=== PATIENT | female | born 1990 | race African-American/Black ===

== ENCOUNTER 2023-10-28 16:45 | Emergency (ER) | payer OTHER, SELFPAY ==
--- NOTE | 2023-10-28 16:53 | ED.GENADULT ---
HPI - General Adult General Chief complaint: Extremity Injury, Upper Stated complaint: R ARM PAIN Time Seen by Provider: 10/28/23 18:13 Source: patient Mode of arrival: ambulatory Limitations: no limitations History of Present Illness HPI narrative: 33 yold female with no pmh presents to the ED for right shoulder painful redness, mass and pain on palpation for the past 3 days. patient denies any fever, chills, shoulder stiffness, or any recent trauma. Patient states history of abscess in that shoulder in the past. Related Data Previous Rx's Medication Instructions Recorded cephalexin 500 mg capsule 500 mg PO Q12H 7 days #14 caps 10/28/23 doxycycline hyclate 100 mg capsule 100 mg PO BID 7 days #14 caps 10/28/23 naproxen 500 mg tablet 500 mg PO BID PRN pain 7 days #14 10/28/23 tabs Allergies Allergy/AdvReac Type Severity Reaction Status Date / Time No Known Allergies Allergy Verified 10/28/23 17:14 Review of Systems Review of Systems: Right shoulder pain Yes all other systems are reviewed and are negative [facility] Social History Social History Advance Directives: No Advance Directives Information Provided: No Physical Exam ED Vital Signs: Vital Signs - 24 hr 10/28/23 17:16 Temperature 97.5 F Pulse Rate 81 Respiratory Rate 16 Blood Pressure 126/64 Pulse Oximetry 99 Oxygen Delivery Method Room Air BMI result Body Mass Index 33.9 Const General: cooperative, healthy appearing, comfortable, no acute distress, well developed, alert, awake and Physically active Orientation/consciousness: oriented to person, oriented to place, oriented to time and patient oriented x3 HENMT Head: Yes normal to inspection, Yes No palpable skull fracture present, Yes normocephalic and Yes atraumatic Throat: Yes posterior oropharynx normal, Yes tonsils normal and Yes uvula midline Eyes General: appearance normal, both eyes and all related structures Neck Neck: Yes normal visual inspection, Yes full ROM, Yes no lymphadenopathy, Yes no meningeal signs, Yes trachea midline, Yes supple, No anterior neck swelling and No tender Chest Chest palpation & inspection: normal inspection of the chest and normal palpation of entire chest wall Resp Effort & Inspection: normal respiratory effort and able to speak in complete sentences Auscultation: clear to auscultation bilaterally Cardio Jugular venous distension: no JVD Heart sounds: S1 normal heart sound present and S2 normal heart sound present GI Inspection: Yes normal to inspection Palpation (GI): Soft to palpation, not firm, nontender, no guarding and not rigid General: No CVA tenderness Back/Spine/Pelvis Back: No CVA tenderness and No back tenderness Skin General skin exam: no rashes or lesions noted, elasticity normal and turgor normal Neuro General: oriented to person, oriented to place, oriented to time, patient oriented x3, gait normal, tone normal, moves all extremities, Normal light touch and pain sensation, no meningeal signs, no focal motor deficits, CN's II-XI intact bilaterally and normal sensation to monofilament Extrem General: Yes normal to inspection and Yes full ROM Shoulder/upper arm images: 1. Positive for area of erythema, tenderness, warmth, and some fluctuance. Patient has complete range of motion of shoulder. Rest of arm negative for any swelling, redness, pain edema, or tenderness. Motor/neuro/ vascular exam of extremity intact. Not suspecting septic joint. Psych Appearance: grossly normal, well kempt and not disheveled Course Course Course Narrative: This is an RME: Additional HPI, ROS, PE not included below will be deferred to primary provider. Patient is a 33-year-old female patient Creole speaking who presents emergency department via EMS for evaluation of right upper arm pain x3 days, with fluid collection, soft fluctuant area tender to touch. Patient reports a history of similar fluid collection in this area requiring drainage Medications Administered Discontinued Medications Generic Name Dose Route Start Last Admin Trade Name Freq PRN Reason Stop Dose Admin Diphtheria/Tetanus/Acell Pertussis 0.5 ml 10/28/23 19:39 10/28/23 20:07 Diphth,Pertus(Acell),Tet Adult 0.5 Ml Syringe IM 10/28/23 19:40 0.5 ml .ONCE ONE Administration Ibuprofen 800 mg 10/28/23 20:12 10/28/23 20:18 Ibuprofen 800 Mg Tablet PO 10/28/23 20:13 800 mg ONCE ONE Administration Lidocaine HCl 5 ml 10/28/23 18:14 10/28/23 19:16 Lidocaine Hcl 1 % Mpf 5 Ml Vial INFILTRATI 10/28/23 18:15 5 ml ONCE ONE Administration Lidocaine HCl 5 ml 10/28/23 18:14 10/28/23 19:16 Lidocaine Hcl 1 % Mpf 5 Ml Vial INFILTRATI 10/28/23 18:15 5 ml ONCE ONE Administration Medical Decision Making Medical Decision Making [facility] Narrative: 33-year-old female presents to ED for right shoulder pain for redness lump present for couple of days. Bedside ultrasound shows large local abscess. Lidocaine 1% 10 mL male use for anesthesia. Wound cleaned with sterile saline Betadine iodine. Size 11 used for incision. Large amount of white cheesy smelly foul odor discharge. . Discharge was drained and forceps was used to open up more pockets. Normal saline flushed into abscess. Packing placed. not suspecting septic joint. I recommended doing a larger incision to drain more abscess, but patient states no due to pain. Differential Diagnosis Differential Diagnoses: The differential diagnosis associated with the presentation includes ( Abscess, cellulitis) Admission/Observation Consideration of admission/observation: Escalation of care including admission/observation considered Independent Historian Clinical information obtained from an independent historian. History obtained from or confirmed by: Other ( patient) External Record Review External record reviewed: Other (prior visits) Prescription Management I considered prescription management with: Pain Medication and Antibiotic Discharge Plan Discharge Clinical Impression: Abscess Patient Disposition: Home, Self-Care Instructions: Abscess Incision and Drainage (DC) Additional Instructions: return to the ED 2 days for repacking and abscess evaluation. Return to the ED immediately for any redness, profuse pus discharge, shoulder stiffness, fever, chills, chest pain, shortness of breath, red streaks down the arm, arm swelling, bluish discoloration, or any other concerning symptoms. Prescriptions: New naproxen 500 mg tablet 500 mg PO BID PRN (Reason: pain) 7 Days Qty: 14 0RF cephalexin 500 mg capsule 500 mg PO Q12H 7 Days Qty: 14 0RF doxycycline hyclate 100 mg capsule 100 mg PO BID 7 Days Qty: 14 0RF Stand Alone Forms: Work/School Release Interventions: ED Discharge Assessment Last Done: 10/28/23 20:11 Discharge Date/Time: 10/28/23 20:25 Print Language: Jordanian
[2023-10-28 17:16] VITALS: BP 126/64; BP 132/80; PULSE 105; PULSE 81; RESP 16; TEMP 36.4; O2SAT 98; O2SAT 99; BMI 33.9
[2023-10-28] MEDS: Lidocaine HCl 1 % MPF 5 ML VIAL INFILTRATI ×2 (19:16)
[2023-10-28] MEDS: Diphth,Pertus(ACell),Tet Adult 0.5 ML SYRINGE IM (20:07)
[2023-10-28 20:11] VITALS: BP 126/64; PULSE 81; RESP 16; TEMP 36.4; O2SAT 99
[2023-10-28] MEDS: Ibuprofen 800 MG TABLET PO (20:18)
== END 2023-10-28 20:25 | disposition home or self-care (01) ==
PROVIDERS: Emergency Provider Emergency Medicine Emergency Medical Services
DX: L02.413 Cutaneous abscess of right upper limb (principal); Z23 Encounter for immunization
CPT/HCPCS: 10060; 87070; 87077; 87186; 87205; 90471; 90715; 99283; 99284

== ENCOUNTER 2023-10-30 09:04 | Emergency (ER) | payer OTHER, SELFPAY ==
[2023-10-30 09:20] VITALS: BP 115/72; PULSE 88; RESP 16; TEMP 37.1; O2SAT 99; BMI 38.6
--- NOTE | 2023-10-30 09:29 | ED.WOUNDLAC ---
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 Patient was seen on October 27 for an abscess. This abscess on her right shoulder was excised and drained and packed. Patient was discharged on doxycycline and Keflex which she has been compliant with. She states that she had a fever on October 27, denies any additional fevers. She is otherwise feeling okay other than pain in her right shoulder. Denies any recent fevers, chills, chest pain, shortness of breath, abdominal pain, nausea, vomiting or diarrhea. No other complaints or concerns at this time. Onset (ago): day(s) Related Data Previous Rx's Medication Instructions Recorded cephalexin 500 mg capsule 500 mg PO Q12H 7 days #14 caps 10/28/23 doxycycline hyclate 100 mg capsule 100 mg PO BID 7 days #14 caps 10/28/23 naproxen 500 mg tablet 500 mg PO BID PRN pain 7 days #14 10/28/23 tabs Allergies Allergy/AdvReac Type Severity Reaction Status Date / Time No Known Allergies Allergy Verified 10/28/23 17:14 Review of Systems Review of Systems: Yes all other systems are reviewed and are negative Constitutional: Constitutional: Reports as per [facility] Social History Social History Advance Directives: No Physical Exam Vital Signs: Vital Signs: Last Vital Signs Temp 98.7 F 10/30/23 09:20 Pulse 88 10/30/23 09:20 Resp 16 10/30/23 09:20 BP 115/72 10/30/23 09:20 Pulse Ox 99 10/30/23 09:20 O2 Del Method Room Air 10/30/23 09:20 BMI result Body Mass Index 38.6 Const: General: cooperative, comfortable and no acute distress Orientation/consciousness: patient oriented x3 Limitations: no limitations HEENT: Head: Yes normal to inspection, Yes normocephalic and Yes atraumatic Ears: hearing grossly normal bilaterally General nose exam: Normal external nose present Face and sinus: Yes normal facial exam Mouth: Normal oral and palatal mucosa present, oropharynx normal and moist mucous membranes Throat: Yes posterior oropharynx normal Eyes: General: appearance normal, both eyes and all related structures Eyelids: Yes eyelids normal Conjunctivae: conjunctivae normal Sclerae: sclerae normal Pupils: Equal, round and reactive pupils present EOM: EOMs intact bilaterally Neck: Neck: Yes normal visual inspection, Yes full ROM and Yes no lymphadenopathy Lymphatic: no lymphadenopathy noted Chest: Chest palpation & inspection: normal inspection of the chest Resp: Effort & Inspection: normal respiratory effort and able to speak in complete sentences Auscultation: clear to auscultation bilaterally, no crackles, no rales, no rhonchi and no wheezes Cardio: Rate: regular rate Rhythm: regular rhythm Heart sounds: S1 normal heart sound present and S2 normal heart sound present GI: Inspection: Yes normal to inspection Skin: Other: Right posterior shoulder with 1-1/2 cm surgical incision with wick in place, mild warmth and surrounding induration. Wick was removed and brown, purulent drainage was expressed. Mild bloody drainage expressed from wound after wick removal. General skin exam: no rashes or lesions noted Trauma: no lacerations or abrasions Wounds: no wounds Neuro: General: patient oriented x3 and moves all extremities Cranial nerves: Yes Equal, round and reactive pupils present Extrem: General: Yes normal to inspection Right upper extremity: normal to inspection Left upper extremity: normal to inspection Right lower extremity: normal to inspection Left lower extremity: normal to inspection Medical Decision Making Medical Decision Making MDM Narrative: This is a 33-year-old Citizen [place] Creole speaking female, with no known medical problems, who presents to the emergency department for wound check on her right shoulder. Patient was seen here on October 27 after having an incision and drainage on a abscess. Patient presents with wick in place, wick was removed and small amount of purulent drainage expressed. There is some surrounding induration and warmth. Of note, provider that saw patient initially recommended further incision for drainage however patient refused at that time. Given appearance, I consulted Dr. Jones, who recommends not to repack, continue antibiotics, and warm compresses and advised patient to follow-up in the surgical office this week for follow-up. Wick was removed, re dressed patient given strict return precautions. She understands patient stable for discharge. Differential Diagnosis Differential Diagnoses: The differential diagnosis associated with the presentation includes Abscess, cellulitis, cyst, wound check Admission/Observation Consideration of admission/observation: Escalation of care including admission/observation considered Consult Healthcare Provider Management of the patient was discussed with: [employer] Architect Dr. Jones Discharge Plan Discharge Clinical Impression: Abscess Patient Disposition: Home, Self-Care Instructions: Abscess Follow-up (ED) Additional Instructions: You were seen in the emergency department for a wound check. The abscess that we incised and drained on October 27 will continue to drain. Please apply warm compresses to the area 5-6 times per day to encourage more drainage to be expressed from this region. Please continue taking the antibiotic as prescribed. Follow-up with the surgical office this week, call to make an appointment. If any new or worsening symptoms occur including but not limited to fevers, worsening pain, redness, difficulty moving right arm, please return for re-evaluation. Prescriptions: No Action naproxen 500 mg tablet 500 mg PO BID PRN (Reason: pain) 7 Days Qty: 14 0RF cephalexin 500 mg capsule 500 mg PO Q12H 7 Days Qty: 14 0RF doxycycline hyclate 100 mg capsule 100 mg PO BID 7 Days Qty: 14 0RF Referrals: [facility] [place] [facility] [Provider Group]
--- NOTE | 2023-10-30 10:14 | PC.NURSE ---
patient wound redressed with non stick padding and abdominal pad cover, patient tolerated well. patient has bloody sanguineous discharge from wound.
[2023-10-30 10:34] VITALS: BP 97/80; PULSE 77; RESP 18; TEMP 36.8; O2SAT 99
== END 2023-10-30 10:34 | disposition home or self-care (01) ==
PROVIDERS: Emergency Provider Emergency Medicine
DX: L02.413 Cutaneous abscess of right upper limb (principal)
CPT/HCPCS: 99282

== ENCOUNTER 2023-11-04 12:34 | Emergency (ER) | payer OTHER, SELFPAY ==
--- NOTE | ~2023-11-04 | US_ITS ---
EXAMINATION: Right shoulder proper biceps region ultrasound.. CLINICAL INFORMATION: Shoulder abscess wound redness. COMPARISON: None. TECHNIQUE: Targeted ultrasound of the right shoulder anterior biceps region area of wound FINDINGS: There are 2 complex hypoechoic foci in this area measuring 2.9 x 1 x 1.3 cm into by 1.1 x 1.5 cm respectively. US/US extremity nonvascular cantor IMPRESSION: 2 hypoechoic foci in the region of the interest reportedly an area of mass and wound. These could reflect abscesses the appropriate clinical scenario. Hematoma is the differential diagnosis in the setting of trauma.
--- NOTE | ~2023-11-04 | CT_ITS ---
EXAMINATION: CT SHOULDER WITH CONTRAST, RIGHT CLINICAL INFORMATION: Right shoulder cellulitis, abscess. COMPARISON: Since soft tissue ultrasound from 11/04/2023 TECHNIQUE: Multidetector CT imaging examination of the right shoulder region is performed with intravenous administration of 85 mL Omnipaque 350. This CT examination was performed using dose optimization techniques as appropriate, variously including the following: *Automated exposure control *Adjustment of mA and/or kV according to patient size (this includes techniques or standardized protocols for targeted exams where dose is matched to indication/reason for exam; i.e. extremities or head) *Use of iterative reconstruction technique DLP: 130 mGy-cm FINDINGS: Bones have normal density and normal alignment at the right shoulder. The acromioclavicular and glenohumeral joints are normal. No glenohumeral joint effusion. Also, there is no evidence of fluid distention of the subacromial-subdeltoid bursa. The muscles of the shoulder have normal attenuation. There is edema of subcutaneous tissues of the posterolateral shoulder (posterolateral to the deltoid muscle) without soft tissue gas or radiopaque foreign body. A few irregular collections of fluid are present in the subcutaneous compartment and one of these demonstrates peripheral rim enhancement and tracks to the skin surface. This collection measures approximately 1 cm AP, approximately 1 cm transverse and 3 cm craniocaudal (images 18-26, series 5). The other small pockets of fluid in the subcutaneous compartment are difficult to precisely measure given their irregular borders; one of these measures approximately 1.5 cm transverse, 0.7 cm AP and 1.8 cm craniocaudal and the other is approximately 1.5 x [address]/CT shoulder RT w IV con IMPRESSION: There are small soft tissue abscesses in the subcutaneous compartment of the posterolateral right shoulder. The underlying deltoid muscle has normal attenuation. No evidence of an intramuscular abscess, soft tissue gas or radiopaque foreign body in this region.
[2023-11-04 13:26] VITALS: BP 106/68; PULSE 77; RESP 18; TEMP 36.6; O2SAT 99; BMI 27.8
--- NOTE | 2023-11-04 13:37 | ED.GENADULT ---
HPI - General Adult General Chief complaint: Skin/Abscess/Foreign Body Stated complaint: Fever/wound on shoulder Time Seen by Provider: 11/04/23 15:32 Source: patient, RN notes reviewed and diplomatic interpreter/translator Mode of arrival: ambulatory Limitations: language barrier History of Present Illness HPI narrative: This is a 33-year-old female, [place] Creole speaking female, who presents to the emergency department for wound check. Patient was originally seen on October 27 for an abscess which was incised and drained, treated with doxycycline. She returned again on October 29 for wound check, and Dr. Lopez recommended outpatient follow-up. She returns here today as she has had worsening pain, swelling, and drainage from the region. She also notes that it feels as though she has a area of swelling and pain adjacent to this. region She endorses subjective fevers and chills. No other complaints or concerns at this time. MD complaint: Right arm cellulitis, abscess Location: upper extremity Severity: moderate Quality: aching Pain Consistency: constant Relieving factors: none Exacerbating factors: none Associated symptoms: denies other symptoms Treatments prior to arrival: none Related Data Previous Rx's ?Medication ?Instructions ?Recorded cephalexin 500 mg capsule 500 mg PO Q12H 7 days #14 caps 10/28/23 doxycycline hyclate 100 mg capsule 100 mg PO BID 7 days #14 caps 10/28/23 naproxen 500 mg tablet 500 mg PO BID PRN pain 7 days #14 10/28/23 tabs acetaminophen 500 mg tablet 500 mg PO Q6H PRN pain #30 tabs 11/04/23 (Tylenol Extra Strength) cephalexin 250 mg capsule 250 mg PO QID 7 days #28 caps 11/04/23 doxycycline hyclate 100 mg capsule 100 mg PO BID 7 days #14 caps 11/04/23 Allergies Allergy/AdvReac Type Severity Reaction Status Date / Time No Known Allergies Allergy Verified 11/04/23 13:33 Review of Systems Review of Systems: Yes all other systems are reviewed and are negative Constitutional: Constitutional: Reports as per [facility] Past Medical History Medical History (Updated 11/04/23 @ 18:29 by VANESSA Degroot) Abscess of shoulder Social History Social History Advance Directives: No Advance Directives Information Provided: No Physical Exam ED Vital Signs: Vital Signs - 24 hr 11/04/23 13:26 11/04/23 18:44 Temperature 98 F 97.9 F Pulse Rate 77 64 Respiratory Rate 18 16 Blood Pressure 106/68 115/73 Pulse Oximetry 99 Oxygen Delivery Method Room Air BMI result Body Mass Index 27.8 Const General: cooperative, comfortable and no acute distress Orientation/consciousness: patient oriented x3 Limitations: no limitations HENMT Head: Yes normal to inspection, Yes normocephalic and Yes atraumatic Ears: hearing grossly normal bilaterally General nose exam: Normal external nose present Face and sinus: Yes normal facial exam Mouth: Normal oral and palatal mucosa present, oropharynx normal and moist mucous membranes Throat: Yes posterior oropharynx normal Eyes General: appearance normal, both eyes and all related structures Eyelids: Yes eyelids normal Conjunctivae: conjunctivae normal Sclerae: sclerae normal Pupils: Equal, round and reactive pupils present EOM: EOMs intact bilaterally Neck Neck: Yes normal visual inspection, Yes full ROM and Yes no lymphadenopathy Lymphatic: no lymphadenopathy noted Chest Chest palpation & inspection: normal inspection of the chest Resp Effort & Inspection: normal respiratory effort and able to speak in complete sentences Auscultation: clear to auscultation bilaterally, no crackles, no rales, no rhonchi and no wheezes Cardio Rate: regular rate Rhythm: regular rhythm Heart sounds: S1 normal heart sound present and S2 normal heart sound present GI Inspection: Yes normal to inspection Skin Other: Right posterior shoulder, with incision and drainage site open with scant yellow drainage with induration and warmth. Lateral to the axilla there is a fluctuant mass noted to be about 3 x 2 cm, exquisitely tender. General skin exam: no rashes or lesions noted Trauma: no lacerations or abrasions Wounds: no wounds Neuro General: patient oriented x3 and moves all extremities Cranial nerves: Yes Equal, round and reactive pupils present Extrem General: Yes normal to inspection Right upper extremity: normal to inspection Left upper extremity: normal to inspection Right lower extremity: normal to inspection Left lower extremity: normal to inspection Course Course Course Narrative: RME: 33 yold female presents to the ED for worsening right shoulder abscess. It was intially drained, but became larger. Patient has complete range of motion of shoulder. labs and US of shoulder ordered. Reevaluation(s) Reevaluation #1: Pt was seen by Dr. Angeles at bedside where he performed a bedside incision and drainage, moderate amount of purulence was expressed see his surgical note for further detail.. CT arm still pending at this time. Reevaluation #2: CT shoulder revealing a small soft tissue abscesses in the subcutaneous compartment of the posterior all lateral right shoulder. The CT was performed just before Dr. Angeles had performed the incision and drainage therefore this abscess is likely already drained. This does not extend into the deltoid muscle, there has no evidence of intramuscular abscess, soft tissue gas or radiopaque foreign body. Discussed findings with Dr. Angeles. He recommends oral antibiotics and outpatient follow-up. Patient understands and agrees with plan. Patient stable for discharge. Time: 18:35 Medications Administered Discontinued Medications Generic Name Dose Route Start Last Admin Trade Name Freq PRN Reason Stop Dose Admin Iohexol 85 ml 11/04/23 17:09 11/04/23 17:09 Iohexol 350 Mg/Ml 100 Ml Infus..Btl IV 11/04/23 17:10 85 ml ONCE ONE Administration Lidocaine HCl 5 ml 11/04/23 17:13 11/04/23 17:26 Lidocaine Hcl 1 % Mpf 5 Ml Vial INFILTRATI 11/04/23 17:14 5 ml ONCE ONE Administration Lidocaine HCl 10 ml 11/04/23 17:14 11/04/23 17:27 Lidocaine Hcl 1 % Mpf 5 Ml Vial SUBCUT 11/04/23 17:15 Not Given ONCE ONE Procedures Procedure Narrative Procedure Narrative: Incision and drainage was performed by Dr. Angeles at bedside. Area was cleansed and lidocaine 1% was used for local anesthesia. He made an incision with a 11 blade scalpel. Abscess cavity was entered and large amount of pus was drained. Cultures were taken at that time. Dressings applied. She tolerated procedure well without any complications or concerns. Medical Decision Making Medical Decision Making MDM Narrative: This is a 33-year-old female, with no known medical problems, who presents to the emergency department for evaluation of right arm cellulitis. She has been here multiple times, was seen on October 27 for an abscess, which was incised and drained, was treated with doxycycline and Keflex. She was then seen on October 29 for wound check, and was discharged with outpatient follow-up. She states that she feels as though the area is getting bigger and spreading more. Endorsing subjective fevers and chills. On arrival, vital signs within normal limits. She is nontoxic appearing. Plan labs, CT, ultrasound, surgical consult Differential Diagnosis Differential Diagnoses: The differential diagnosis associated with the presentation includes Abscess, cellulitis, cyst Admission/Observation Consideration of admission/observation: Escalation of care including admission/observation considered Consult Healthcare Provider Management of the patient was discussed with: Mobile Therapist Dr. Angeles, surgery Lab Data MDM Lab Attestation statement: I reviewed the patient's lab results. 11/04/23 14:22 11/04/23 14:22 Labs: Lab Results 11/04/23 Range/Units 14:22 WBC 8.6 (4.8-10.8) X10*3/uL RBC 4.74 (4.20-5.50) X10*6/uL Hgb 13.9 (12.0-16.0) g/dl Hct 40.5 (37.0-47.0) % MCV 85.4 (80.0-98.0) fL MCH 29.3 (27.0-33.0) pg MCHC 34.3 (31.0-35.0) g/dl RDW 12.0 (11.0-16.0) % Plt Count 370 (160-400) X10*3/uL MPV 8.7 L (9.4-12.3) fL Immature Gran % (Auto) 0.2 (0.0-0.4) % Neut % (Auto) 50.7 (45-73) % Lymph % (Auto) 41.0 H (20-40) % [place] % (Auto) 6.5 (2-11) % Eos % (Auto) 1.4 (0-4) % Baso % (Auto) 0.2 (0-2) % Lymph # (Auto) 3.5 (1.2-4.9) X10*3/uL [place] # (Auto) 0.6 (0.1-1.2) X10*3/uL Eos # (Auto) 0.1 (0.0-0.4) X10*3/uL Baso # (Auto) 0.0 (0.0-0.2) X10*3/uL Abs Immat Gran (auto) 0.02 (0.00-0.03) X10*3/uL Absolute Neuts (auto) 4.4 (2.0-8.3) x10*3/uL Absolute Nucleated RBC 0.000 (0.0-0.012) X10*3/uL Nucleated RBC % (auto) 0.0 (0.0-0.2) /100WBC Sodium 140 (135-145) mmol/L Potassium 4.5 (3.3-5.1) mmol/L Chloride 107 (96-108) mmol/L Carbon Dioxide 26 (22-29) mmol/L Anion Gap 12 (12-20) BUN 9 (9-16) mg/dL Creatinine 0.82 (0.5-1.4) mg/dL Estim Creat Clear Calc 103.8 Estimated GFR > 60 Random Glucose 124 H (60-115) mg/dL Calcium 9.6 (8.4-10.2) mg/dL Total Bilirubin 0.4 (0.0-1.0) mg/dL AST 26 (5-31) U/L ALT 52 H (0-31) U/L Alkaline Phosphatase 88 (39-117) U/L Total Protein 8.2 H (6.5-8.0) g/dL Albumin 3.9 (3.5-5.0) g/dL Beta HCG, Quant < 2 mIU/mL Radiology Impression Discussion of test interpretation with radiology: I have reviewed the radiologist's reading. Radiologist Impression: EXAMINATION: CT SHOULDER WITH CONTRAST, RIGHT CLINICAL INFORMATION: Right shoulder cellulitis, abscess. COMPARISON: Since soft tissue ultrasound from 11/04/2023 TECHNIQUE: Multidetector CT imaging examination of the right shoulder region is performed with intravenous administration of 85 mL Omnipaque 350. This CT examination was performed using dose optimization techniques as appropriate, variously including the following: *Automated exposure control *Adjustment of mA and/or kV according to patient size (this includes techniques or standardized protocols for targeted exams where dose is matched to indication/reason for exam; i.e. extremities or head) *Use of iterative reconstruction technique DLP: 130 mGy-cm FINDINGS: Bones have normal density and normal alignment at the right shoulder. The acromioclavicular and glenohumeral joints are normal. No glenohumeral joint effusion. Also, there is no evidence of fluid distention of the subacromial-subdeltoid bursa. The muscles of the shoulder have normal attenuation. There is edema of subcutaneous tissues of the posterolateral shoulder (posterolateral to the deltoid muscle) without soft tissue gas or radiopaque foreign body. A few irregular collections of fluid are present in the subcutaneous compartment and one of these demonstrates peripheral rim enhancement and tracks to the skin surface. This collection measures approximately 1 cm AP, approximately 1 cm transverse and 3 cm craniocaudal (images 18-26, series 5). The other small pockets of fluid in the subcutaneous compartment are difficult to precisely measure given their irregular borders; one of these measures approximately 1.5 cm transverse, 0.7 cm AP and 1.8 cm craniocaudal and the other is approximately 1.5 x [address]/CT shoulder RT w IV con IMPRESSION: There are small soft tissue abscesses in the subcutaneous compartment of the posterolateral right shoulder. The underlying deltoid muscle has normal attenuation. No evidence of an intramuscular abscess, soft tissue gas or radiopaque foreign body in this region. US/US extremity nonvascular cantor IMPRESSION: 2 hypoechoic foci in the region of the interest reportedly an area of mass and wound. These could reflect abscesses the appropriate clinical scenario. Hematoma is the differential diagnosis in the setting of trauma. Dictated By: Matthew Carlton MD Discharge Plan Discharge Clinical Impression: Abscess of shoulder Cellulitis Qualifiers: Site of cellulitis: extremity Site of cellulitis of extremity: upper extremity Laterality: right Qualified Code(s): L03.113 - Cellulitis of right upper limb Patient Disposition: Home, Self-Care Instructions: Cellulitis (ED), Abscess (ED), Abscess Follow-up (ED), Warm Compress or Soak (ED) Additional Instructions: Your seen today for an abscess and skin infection. Dr. Angeles, the surgeon, performed an incision and drainage. I am placing him back on antibiotics. Please take full course even if you are feeling better. Warm compresses, Tylenol and Motrin can also help with pain. If any new or worsening symptoms occur including but not limited to worsening pain, fevers, chills, difficulty moving the arm, please return for re-evaluation. You need to follow-up with the surgical office, call tomorrow to make an appointment. Prescriptions: New cephalexin 250 mg capsule 250 mg PO QID 7 Days Qty: 28 0RF doxycycline hyclate 100 mg capsule 100 mg PO BID 7 Days Qty: 14 0RF acetaminophen [Tylenol Extra Strength] 500 mg tablet 500 mg PO Q6H PRN (Reason: pain) Qty: 30 0RF No Action naproxen 500 mg tablet 500 mg PO BID PRN (Reason: pain) 7 Days Qty: 14 0RF cephalexin 500 mg capsule 500 mg PO Q12H 7 Days Qty: 14 0RF doxycycline hyclate 100 mg capsule 100 mg PO BID 7 Days Qty: 14 0RF Referrals: [facility] [place] [Provider Group] Interventions: ED Discharge Assessment Last Done: 11/04/23 18:44 Discharge Date/Time: 11/04/23 18:49 Print Language: Juan Parnell
[2023-11-04 14:29] LABS: MANUAL DIFF FLAG NO
[2023-11-04 14:31] LABS: Basophils Percent Auto 0.2 % (0-2); Eosinophils Absolute Auto 0.1 X10*3/uL (0.0-0.4); Eosinophils Percent Auto 1.4 % (0-4); Hematocrit 40.5 % (37.0-47.0); Hemoglobin 13.9 g/dl (12.0-16.0); Imm Gran Abs Auto 0.02 X10*3/uL (0.00-0.03); Imm Gran Pct Auto 0.2 % (0.0-0.4); Lymphocytes Absolute Auto 3.5 X10*3/uL (1.2-4.9); Mean Corpuscular HGB Conc 34.3 g/dl (31.0-35.0); Mean Corpuscular Hemoglobin 29.3 pg (27.0-33.0); Mean Corpuscular Volume 85.4 fL (80.0-98.0); Mean Platelet Volume 8.7 fL (9.4-12.3); Monocytes Absolute Auto 0.6 X10*3/uL (0.1-1.2); Monocytes Percent Auto 6.5 % (2-11); Neutrophils Absolute Auto 4.4 x10*3/uL (2.0-8.3); Neutrophils Percent Auto 50.7 % (45-73); Platelet Count 370 X10*3/uL (160-400); Red Blood Count 4.74 X10*6/uL (4.20-5.50); White Blood Count 8.6 X10*3/uL (4.8-10.8)
[2023-11-04 14:46] LABS: Alanine Aminotransferase 52 U/L (0-31); Albumin Level 3.9 g/dL (3.5-5.0); Alkaline Phosphatase 88 U/L (39-117); Anion Gap 12 (12-20); Aspartate Amino Transferase 26 U/L (5-31); Bilirubin Total 0.4 mg/dL (0.0-1.0); Blood Urea Nitrogen 9 mg/dL (9-16); Calcium 9.6 mg/dL (8.4-10.2); Carbon Dioxide 26 mmol/L (22-29); Chloride 107 mmol/L (96-108); Creatinine Clr Calc Pharmacy 103.8; Estimated Glomerular Filt Rate > 60; Glucose Random 124 mg/dL (60-115); Potassium 4.5 mmol/L (3.3-5.1); Sodium 140 mmol/L (135-145); Total Protein 8.2 g/dL (6.5-8.0)
[2023-11-04 14:58] LABS: HCG Quantitative < 2 mIU/mL
[2023-11-04] MEDS: iohexoL 350 MG/ML 100 ML INFUS..BTL 85 ML IV (17:09)
--- NOTE | 2023-11-04 17:23 | P.CONGS_ITS ---
History of Present Illness Consult details Consult date: 11/04/23 Narrative: 33F here in the ED for right should swelling and tenderness. She was here for a similar issue last October 27 and had an I and D done for an abscess. She was sent home on oral antibitoics. She came back to the ED for worsening swelling and pain, with a different area adjacent to the old I and D site. The old I and D site appears to be still open with scanty drainage. There was no hx of trauma or insect bite. She is not a diabetic. Review of Systems 2 Constitutional: Constitutional: Denies chills and Reports fever(s) (subjective) Cardiovascular: Cardiovascular: Denies chest pain, Denies dyspnea and Denies dyspnea on exertion Respiratory: Respiratory: Denies cough, Denies dyspnea and Denies dyspnea on exertion Gastrointestinal: Gastrointestinal: Denies hematochezia and Denies change in bowel habits Genitourinary: Genitourinary: Denies hematuria Musculoskeletal: Musculoskeletal: Denies back pain and Denies limited range of motion Neurologic: Denies focal weakness and Denies convulsions Psychiatric: Psychiatric: Denies depression and Denies mood swings [facility] Past Medical History Medical History (Updated 11/05/23 @ 00:02 by Background Daemon) Abscess of shoulder Social History Social History Advance Directives: No Advance Directives Information Provided: No Meds Allergies Allergy/AdvReac Type Severity Reaction Status Date / Time No Known Allergies Allergy Verified 11/04/23 13:33 Physical Exam 2 Vital Signs: Vital Signs: Last Vital Signs Temp 98 F 11/04/23 13:26 Pulse 77 11/04/23 13:26 Resp 18 11/04/23 13:26 BP 106/68 11/04/23 13:26 Pulse Ox 99 11/04/23 13:26 O2 Del Method Room Air 11/04/23 13:26 BMI result Body Mass Index 27.8 Const: General: comfortable and no acute distress O rientation/consciousness: patient oriented x3 Neck: Neck: Yes no lymphadenopathy Resp: Auscultation: clear to auscultation bilaterally Cardio: Rhythm: regular rhythm GI: Palpation (GI): Soft to palpation, nontender and no guarding Neuro: General: patient oriented x3 Extrem: Other: right sould posteriorly - I and D site, open, scanty drainage; inferior to this toward the axilla is a fluctuant mass, about 3 cm, very tender Results Labs 11/04/23 14:22 11/04/23 14:22 Labs: Abnormal lab results 11/04/23 Range/Units 14: MPV 8.7 L (9.4-12.3) fL Lymph % (Auto) 41.0 H (20-40) % Random Glucose 124 H (60-115) mg/dL ALT 52 H (0-31) U/L Total Protein 8.2 H (6.5-8.0) g/dL Short CBC 11/04/23 Range/Units 14:22 WBC 8.6 (4.8-10.8) X10*3/uL Hgb 13.9 (12.0-16.0) g/dl Hct 40.5 (37.0-47.0) % Plt Count 370 (160-400) X10*3/uL BMP 11/04/23 14:22 Sodium 140 Potassium 4.5 Chloride 107 Carbon Dioxide 26 BUN 9 Creatinine 0.82 Calcium 9.6 Liver Function 11/04/23 Range/Units 14: Total Bilirubin 0.4 (0.0-1.0) mg/dL AST 26 (5-31) U/L ALT 52 H (0-31) U/L Alkaline Phosphatase 88 (39-117) U/L Albumin 3.9 (3.5-5.0) g/dL All other labs normal. Imaging Additional studies: Laboratory Results WBC 8.6 X10*3/uL (4.8-10.8) 11/04/23 14: RBC 4.74 X10*6/uL (4.20-5.50) 11/04/23 14:22 Hgb 13.9 g/dl (12.0-16.0) 11/04/23 14:22 Hct 40.5 % (37.0-47.0) 11/04/23 14:22 MCV 85.4 fL (80.0-98.0) 11/04/23 14:22 MCH 29.3 pg (27.0-33.0) 11/04/23 14:22 MCHC 34.3 g/dl (31.0-35.0) 11/04/23 14:22 RDW 12.0 % (11.0-16.0) 11/04/23 14:22 Plt Count 370 X10*3/uL (160-400) 11/04/23 14:22 MPV 8.7 fL (9.4-12.3) L 11/04/23 14:22 Immature Gran % (Auto) 0.2 % (0.0-0.4) 11/04/23 14:22 Neut % (Auto) 50.7 % (45-73) 11/04/23 14:22 Lymph % (Auto) 41.0 % (20-40) H 11/04/23 14:22 [place] % (Auto) 6.5 % (2-11) 11/04/23 14:22 Eos % (Auto) 1.4 % (0-4) 11/04/23 14:22 Baso % (Auto) 0.2 % (0-2) 11/04/23 14:22 Lymph # (Auto) 3.5 X10*3/uL (1.2-4.9) 11/04/23 14:22 [place] # (Auto) 0.6 X10*3/uL (0.1-1.2) 11/04/23 14:22 Eos # (Auto) 0.1 X10*3/uL (0.0-0.4) 11/04/23 14:22 Baso # (Auto) 0.0 X10*3/uL (0.0-0.2) 11/04/23 14:22 Abs Immat Gran (auto) 0.02 X10*3/uL (0.00-0.03) 11/04/23 14:22 Absolute Neuts (auto) 4.4 x10*3/uL (2.0-8.3) 11/04/23 14:22 Absolute Nucleated RBC 0.000 X10*3/uL (0.0-0.012) 11/04/23 14:22 Nucleated RBC % (auto) 0.0 /100WBC (0.0-0.2) 11/04/23 14:22 Sodium 140 mmol/L (135-145) 11/04/23 14:22 Potassium 4.5 mmol/L (3.3-5.1) 11/04/23 14:22 Chloride 107 mmol/L (96-108) 11/04/23 14:22 Carbon Dioxide 26 mmol/L (22-29) 11/04/23 14:22 Anion Gap 12 (12-20) 11/04/23 14:22 BUN 9 mg/dL (9-16) 11/04/23 14:22 Creatinine 0.82 mg/dL (0.5-1.4) 11/04/23 14:22 Estim Creat Clear Calc 103.8 11/04/23 14:22 Estimated GFR > 60 11/04/23 14:22 Random Glucose 124 mg/dL (60-115) H 11/04/23 14:22 Calcium 9.6 mg/dL (8.4-10.2) 11/04/23 14:22 Total Bilirubin 0.4 mg/dL (0.0-1.0) 11/04/23 14:22 AST 26 U/L (5-31) 11/04/23 14:22 ALT 52 U/L (0-31) H 11/04/23 14:22 Alkaline Phosphatase 88 U/L (39-117) 11/04/23 14:22 Total Protein 8.2 g/dL (6.5-8.0) H 11/04/23 14:22 Albumin 3.9 g/dL (3.5-5.0) 11/04/23 14:22 Beta HCG, Quant < 2 mIU/mL 11/04/23 14:22 Impressions Extremity Ultrasound 11/04/23 14:08 IMPRESSION: 2 hypoechoic foci in the region of the interest reportedly an area of mass and wound. These could reflect abscesses the appropriate clinical scenario. Hematoma is the differential diagnosis in the setting of trauma. Assessment and Plan (1) Abscess of shoulder: Status: Acute I probed the old I and D site with a qtip and there was no collection deep in the tract. However, there appears to be a separate abscess towards the axill so I explained to her it is best to do an I and D. She understood the technique of the procedure and had given verbal consent via an java sybase developer. She was in left lateral decub position. The area of the fluctuance was prepped and draped. Lidocaine 1% was used for local anesthesia. I made a generous cruciate incision on the fluctuant arera with a blade 11. An abscess cavity was entered and large amounts of pus was drained. Cultures were taken. Dressings were applied. She was given wound care instructions. She can ffup in the office down the line. Procedures Date of Service Date of Service: 11/08/23
[2023-11-04] MEDS: Lidocaine HCl 1 % MPF 5 ML VIAL INFILTRATI (17:26)
--- NOTE | 2023-11-04 17:33 | P.OP_ITS ---
Operative Note Operative Note Date of Service: 11/04/23 Narrative: BEDSIDE PROCEDURE in ED Preop dx: abscess, subcutaneous, right shoulder Postop dx: same Procedure: I and D of abscess, right shoulder Surgeon: Eriberto Angeles MD I probed the old I and D site with a qtip and there was no collection deep in the tract. However, there appears to be a separate abscess towards the axill so I explained to her it is best to do an I and D. She understood the technique of the procedure and had given verbal consent via an medicaid billing clerk. She was in left lateral decub position. The area of the fluctuance was prepped and draped. Lidocaine 1% was used for local anesthesia. I made a generous cruciate incision on the fluctuant area with a blade 11. An abscess cavity was entered and large amounts of pus was drained. Cultures were taken. Dressings were applied. She was given wound care instructions.
[2023-11-04 18:44] VITALS: BP 115/73; PULSE 64; RESP 16; TEMP 36.6
== END 2023-11-04 18:49 | disposition home or self-care (01) ==
PROVIDERS: Physician Assistant; Emergency Provider Emergency Medicine
DX: L03.113 Cellulitis of right upper limb (principal); R50.9 Fever, unspecified; M79.601 Pain in right arm; Z79.899 Other long term (current) drug therapy
CPT/HCPCS: 23030; 36415; 73201; 76882; 80053; 84702; 85025; 87070; 87205; 99282; 99284; Q9967

== ENCOUNTER → 2023-11-04 15:13 | Outpatient (BNV) | payer OTHER, SELFPAY | PROVIDERS: Emergency Provider Emergency Medicine; Visit Provider Surgery | DX: L02.413 Cutaneous abscess of right upper limb (principal) | CPT/HCPCS: 10060; 99283 ==

== ENCOUNTER 2023-11-13 13:43 | Emergency (ER) | payer OTHER, SELFPAY ==
[2023-11-13 14:12] VITALS: BP 107/69; PULSE 65; RESP 16; TEMP 37; O2SAT 99
--- NOTE | 2023-11-13 14:23 | ED.GENADULT ---
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 She had an incision and drainage with Dr. Angeles Patient reports that she has an appointment for follow-up today which is why she is here She reports the area feels like it is improving well Related Data Previous Rx's ?Medication ?Instructions ?Recorded cephalexin 500 mg capsule 500 mg PO Q12H 7 days #14 caps 10/28/23 doxycycline hyclate 100 mg capsule 100 mg PO BID 7 days #14 caps 10/28/23 naproxen 500 mg tablet 500 mg PO BID PRN pain 7 days #14 10/28/23 tabs acetaminophen 500 mg tablet 500 mg PO Q6H PRN pain #30 tabs 11/04/23 (Tylenol Extra Strength) cephalexin 250 mg capsule 250 mg PO QID 7 days #28 caps 11/04/23 doxycycline hyclate 100 mg capsule 100 mg PO BID 7 days #14 caps 11/04/23 Allergies Allergy/AdvReac Type Severity Reaction Status Date / Time No Known Allergies Allergy Verified 11/13/23 14:15 Review of Systems Constitutional: Constitutional: Denies body ache(s) and Denies fever(s) Musculoskeletal: Musculoskeletal: Denies arthralgias, Denies joint swelling and Denies limited range of motion Integumentary/Breasts: Skin/Breast: Reports erythema and Reports wounds [facility] Past Medical History Medical History (Updated 11/13/23 @ 14:20 by Javed Song) Abscess of shoulder Social History Social History Advance Directives: No Physical Exam ED Vital Signs: Vital Signs - 24 hr 11/13/23 14:12 Temperature 98.6 F Pulse Rate 65 Respiratory Rate 16 Blood Pressure 107/69 Pulse Oximetry 99 Oxygen Delivery Method Room Air BMI result Body Mass Index 0.0 Skin Other: Healing incision wound to the right posterior shoulder. There is some dried discharge around the wound, no erythema, no active purulent drainage. Nontender to palpation, no fluctuance Extrem Other: Patient has full range of motion of the right shoulder Medical Decision Making Medical Decision Making MDM Narrative: Patient appears to have a healing abscess. She completed her antibiotic course. Nursing staff spoke with staff at [facility], general surgery office and apparently the patient has an appointment right now. It seems the patient was supposed to present to the office and not the emergency department, she will be discharged in brought directly to the general surgery office Differential Diagnosis Differential Diagnoses: The differential diagnosis associated with the presentation includes Abscess Wound check Cellulitis Sebaceous cyst Discharge Plan Discharge Clinical Impression: Abscess of shoulder Patient Disposition: Home, Self-Care Instructions: Abscess Follow-up (ED) Additional Instructions: You have an appointment at general surgery office right now. Go directly to that appointment Return for new or worsening symptoms Prescriptions: No Action cephalexin 250 mg capsule 250 mg PO QID 7 Days Qty: 28 0RF doxycycline hyclate 100 mg capsule 100 mg PO BID 7 Days Qty: 14 0RF acetaminophen [Tylenol Extra Strength] 500 mg tablet 500 mg PO Q6H PRN (Reason: pain) Qty: 30 0RF naproxen 500 mg tablet 500 mg PO BID PRN (Reason: pain) 7 Days Qty: 14 0RF cephalexin 500 mg capsule 500 mg PO Q12H 7 Days Qty: 14 0RF doxycycline hyclate 100 mg capsule 100 mg PO BID 7 Days Qty: 14 0RF Print Language: Juan Parnell
== END 2023-11-13 14:26 | disposition home or self-care (01) ==
PROVIDERS: Emergency Provider Emergency Medicine
DX: Z09 Encounter for follow-up examination after completed treatment for conditions other than malignant neoplasm (principal); Z87.2 Personal history of diseases of the skin and subcutaneous tissue
CPT/HCPCS: 99202; 99281

== ENCOUNTER 2023-11-13 14:30 | Outpatient (AMB) | payer OTHER, SELFPAY ==
--- NOTE | 2023-11-13 14:32 | A.OFFVIS_ITS ---
Intake Intake Visit Reasons: Rt shoulder~ abscess Intake Note: Patient referred after ER visit on 11-04-23. Patient c/o: abscess on Rt shoulder. Oozing blood and clear discharge. Finished cephalexin course. Risk Compliance Analyst Required: No Risk Compliance Analyst Name: VALE [id number] Accompanied by: Self / Same As Patient Allergies No Known Allergies Allergy (Verified 11/13/23 14:44) HPI HPI Comments History of Present Illness Details Patient is here for evaluation status post I&D of a right posterior shoulder abscess proximally 2 weeks ago. Virtual Risk Compliance Analyst was used because the patient speaks Creole.. Patient has no wound issues or complaints. She is undergoing local wound care. [facility] Medical History Abscess of shoulder Social History (Updated 11/13/23 @ 14:44 by LEONIDES Patino) Patient Tobacco Use Status: Never used Tobacco Physical Exam Extrem Other: Wound is healing uneventfully. Patient status post I& D. Infective process is completely resolved. There is granulating tissue and a very small residual wound. This was probed with a Q-tip. Dressing was applied. Assessment & Plan Assessment & Plan (1) Status post incision and drainage: Code(s): Z98.890 - Other specified postprocedural states Plan Patient is continue local wound therapy, and the wound should be healed within next week or so. She will otherwise follow-up p.r.n.. All questions answered. Coding Level of Care Code New Pt Level 4 (57322) Diagnoses Status post incision and drainage Z98.890
== END 2023-11-13 15:09 | disposition home or self-care (01) ==
PROVIDERS: Visit Provider Surgery
DX: Z98.890 Other specified postprocedural states (principal)
CPT/HCPCS: 99204

== ENCOUNTER 2024-03-09 16:29 | Emergency (ER) | payer OTHER, SELFPAY ==
--- NOTE | 2024-03-09 16:39 | ECG_ITS ---
Test Reason : CHEST PAIN Blood Pressure : / mmHG Vent. Rate : 077 BPM Atrial Rate : 077 BPM P-R Int : 158 ms QRS Dur : 072 ms QT Int : 372 ms P-R-T Axes : 039 052 000 degrees QTc Int : 420 ms Normal sinus rhythm Normal ECG No previous ECGs available Referred By: Linda Awad Electronically Signed By:CHANTEL MARTINEZ
[2024-03-09 16:42] VITALS: BP 138/87; PULSE 83; RESP 20; TEMP 37.1; O2SAT 99; BMI 36.3
--- NOTE | 2024-03-09 16:46 | ED_ITS ---
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 ? Patient states that she has not been feeling well for the last week. She states that she is weak, tired and occasionally dizzy. She denies any chest pain, shortness of breath, or pain of any kind Patient does admit to increased thirst and increased urination She denies any fevers, chills The patient denies any known history of diabetes Related Data Previous Rx's ?Medication ?Instructions ?Recorded naproxen 500 mg tablet 500 mg PO BID PRN pain 7 days #14 10/28/23 tabs acetaminophen 500 mg tablet 500 mg PO Q6H PRN pain #30 tabs 11/04/23 (Tylenol Extra Strength) cephalexin 250 mg capsule 250 mg PO QID 7 days #28 caps 11/04/23 metformin 500 mg tablet 500 mg PO BID #60 tabs 03/09/24 Allergies Allergy/AdvReac Type Severity Reaction Status Date / Time No Known Allergies Allergy Verified 03/09/24 16:48 Review of Systems 2 Constitutional: Constitutional: Denies body ache(s), Denies chills, Reports fatigue, Denies fever(s), Denies headache(s), Reports malaise and Reports weakness Eyes: Eyes: Denies blurry vision ENT: Reports dizziness, Denies headache(s) and Denies sore throat Cardiovascular: Cardiovascular: Denies chest pain and Denies dyspnea Respiratory: Respiratory: Denies cough and Denies dyspnea Gastrointestinal: Gastrointestinal: Denies abdominal pain, Denies nausea and Denies vomiting Genitourinary: Genitourinary: Denies hematuria and Denies dysuria Musculoskeletal: Musculoskeletal: Denies back pain Integumentary/Breasts: Skin/Breast: Denies rash Neurologic: Reports dizziness, Denies headache(s) and Reports weakness Endocrine: Endocrine: Reports fatigue, Reports polydipsia and Reports polyuria PMFSH Past Medical History Medical History Abscess of shoulder Social History Social History (Updated 11/13/23 @ 14:44 by LEONIDES Patino) Patient Tobacco Use Status: Never used Tobacco Smoked in Last 30 Days: No Use of substances other than those prescribed or required for medical reasons: No Advance Directives: No Advance Directives Information Provided: No Do you have a plan to hurt others: No Plan Patient : No Physical Exam ED Vital Signs: Vital Signs - 24 hr 03/09/24 16:42 03/09/24 20:22 Temperature 98.8 F 98.1 F Pulse Rate 83 59 Respiratory Rate 20 15 Blood Pressure 138/87 114/70 Pulse Oximetry 99 100 Oxygen Delivery Method Room Air Room Air BMI result Body Mass Index 36.3 Const General: healthy appearing, comfortable, no acute distress, alert and awake Nutritional Appearance: well nourished Orientation/consciousness: patient oriented x3 HENMT Head: Yes normocephalic and Yes atraumatic Eyes Eyelids: Yes eyelids normal Conjunctivae: conjunctivae normal Sclerae: sclerae normal Corneas: corneas normal Pupils: Equal, round and reactive pupils present EOM: EOMs intact bilaterally Neck Neck: Yes full ROM Resp Effort & Inspection: normal respiratory effort, able to speak in complete sentences and not labored Cardio Rate: regular rate Rhythm: regular rhythm GI Inspection: No distended Palpation (GI): Soft to palpation, not firm, nontender, no guarding and not rigid Skin General skin exam: elasticity normal Neuro General: patient oriented x3 Cranial nerves: Yes Equal, round and reactive pupils present and Yes Bilaterally intact EOM present Cognition (Neuro): normal cognition Extrem Other: Moving all extremities well without any obvious deformities Course Course Course Narrative: This is a rapid medical exam performed by Albert Awad NP: Additional HPI, ROS, PE not included below will be deferred to primary provider. Patient is a 34-year-old Malian Creole speaking female presenting to the ED with complaint of weakness, fatigue and dizziness since Sunday. States she did not complaint of chest pain, perhaps was misunderstood. Stating she cannot put weight on her legs. Patient ambulated into triage without difficulty. Plan: viral serology, basic labs Reevaluation(s) Reevaluation #1: Repeat glucose down to 271. The patient be discharged with metformin and encouraged to follow-up with a PCP Time: :32 Medications Administered Discontinued Medications Generic Name Dose Route Start Last Admin Trade Name Shannon PRN Reason Stop Dose Admin Sodium Chloride 1,000 mls @ 999 mls/hr 03/09/24 19:34 03/09/24 21:26 Ns IV 03/09/24 20:34 Infused .Q1H1M ONE Infusion Sodium Chloride 1,000 mls @ 999 mls/hr 03/09/24 19:34 03/09/24 21:26 Ns IV 03/09/24 20:34 Infused .Q1H1M ONE Infusion Medical Decision Making Medical Decision Making [facility] Narrative: 34-year-old female presents for evaluation of general fatigue weakness, increased thirst and increased urination. Her physical exam is reassuring, her labs are significant for a glucose of 498. This is a likely new diagnosis of type 2 diabetes. There is no evidence of DKA, her anion gap is normal at 12, her carbon dioxide is within normal limits at 25. She does have a mild pseudo hyponatremia of 133, however corrected for the glucose of 498, her sodium is within normal limits. She has no significant anemia. Urinalysis shows no evidence of UTI but does show significant glucose in the urine and a high specific gravity which is likely related to the amount of glucose. Plan to treat her hyperglycemia with IV fluids and re-evaluate Differential Diagnosis Differential Diagnoses: The differential diagnosis associated with the presentation includes Hyperglycemia Diabetes [facility] Lab Data [facility] Lab Attestation statement: I reviewed the patient's lab results. Please see medical decision making above 03/09/24 16:57 03/09/24 16:57 Labs: Lab Results 03/09/24 03/09/24 03/09/24 Range/Units 16:57 19:43 21:24 WBC 9.4 (4.8-10.8) X10*3/uL RBC 4.59 (4.20-5.50) X10*6/uL Hgb 13.6 (12.0-16.0) g/dl Hct 37.9 (37.0-47.0) % MCV 82.6 (80.0-98.0) fL MCH 29.6 (27.0-33.0) pg MCHC 35.9 H (31.0-35.0) g/dl RDW 11.8 (11.0-16.0) % Plt Count 261 D (160-400) X10*3/uL MPV 9.5 (9.4-12.3) fL Immature Gran % (Auto) 0.2 (0.0-0.4) % Neut % (Auto) 59.5 (45-73) % Lymph % (Auto) 34.1 (20-40) % [place] % (Auto) 5.5 (2-11) % Eos % (Auto) 0.4 (0-4) % Baso % (Auto) 0.3 (0-2) % Lymph # (Auto) 3.2 (1.2-4.9) X10*3/uL [place] # (Auto) 0.5 (0.1-1.2) X10*3/uL Eos # (Auto) 0.0 (0.0-0.4) X10*3/uL Baso # (Auto) 0.0 (0.0-0.2) X10*3/uL Abs Immat Gran (auto) 0.02 (0.00-0.03) X10*3/uL Absolute Neuts (auto) 5.6 (2.0-8.3) x10*3/uL Absolute Nucleated RBC 0.000 (0.0-0.012) X10*3/uL Nucleated RBC % (auto) 0.0 (0.0-0.2) /100WBC Sodium 133 L (135-145) mmol/L Potassium 4.4 (3.3-5.1) mmol/L Chloride 100 (96-108) mmol/L Carbon Dioxide 25 (22-29) mmol/L Anion Gap 12 (12-20) BUN 10 (9-16) mg/dL Creatinine 1.40 (0.5-1.4) mg/dL Estim Creat Clear Calc 68.9 Estimated GFR 43 POC Glucose 271 H (60-115) mg/dL Random Glucose 498 H* (60-115) mg/dL Calcium 9.7 (8.4-10.2) mg/dL Magnesium 1.7 (1.6-2.6) mg/dL Total Bilirubin 0.7 (0.0-1.0) mg/dL AST 19 (5-31) U/L ALT 27 (0-31) U/L Alkaline Phosphatase 94 (39-117) U/L Total Protein 7.6 (6.5-8.0) g/dL Albumin 4.1 (3.5-5.0) g/dL Beta-Hydroxybutyrate 0.08 (0.02-0.27) mmol/L Beta HCG, Quant < 2 mIU/mL Urine Color Yellow Urine Appearance Clear Urine pH 6.0 (5.0-9.0) Ur Specific [place] >= 1.030 H (1.005-1.025) Urine Protein Negative (Neg-Trace) mg/dL Urine Glucose (UA) >=1000 H (Negative) mg/dL Urine Ketones Negative (Negative) mg/dL Urine Blood Negative (Negative) Urine Nitrite Negative (Negative) Ur Leukocyte Esterase Negative (Negative) Urine RBC 0-2 (0-2) /HPF Urine WBC 0-5 (0-5) /HPF Ur Squamous Epith Cells 3-5 (0-2) /HPF Urine Bacteria None Seen (None Seen) Hyaline Casts 0-2 (0-2) /LPF Urine Yeast Present Urine Test NEGATIVE (NEGATIVE) Influenza Type A (PCR) NEGATIVE (Negative) Influenza Type B (PCR) NEGATIVE (Negative) RSV RNA Qual (PCR) NEGATIVE (Negative) SARS-CoV-2 RNA (RT-PCR) NEGATIVE (Negative) Discharge Plan Discharge Clinical Impression: New onset type 2 diabetes mellitus Patient Disposition: Home, Self-Care Instructions: Type 2 Diabetes in Adults: New Diagnosis (ED), Diabetes and Nutrition (ED), Diabetes and Exercise (ED) Additional Instructions: Today you were diagnosed with new onset diabetes. Avoid foods that are high in sugars and carbohydrates. Take metformin 500 mg twice daily It is important that you follow-up with a primary doctor You need to start checking your blood sugars daily as well Follow-up with your primary doctor and return for new or worsening symptoms Prescriptions: New metformin 500 mg tablet 500 mg PO BID Qty: 60 0RF No Action cephalexin 250 mg capsule 250 mg PO QID 7 Days Qty: 28 0RF acetaminophen [Tylenol Extra Strength] 500 mg tablet 500 mg PO Q6H PRN (Reason: pain) Qty: 30 0RF naproxen 500 mg tablet 500 mg PO BID PRN (Reason: pain) 7 Days Qty: 14 0RF Print Language: Malian Crekhoa
[2024-03-09 17:01] LABS: MANUAL DIFF FLAG NO
[2024-03-09 17:03] LABS: Basophils Percent Auto 0.3 % (0-2); Eosinophils Percent Auto 0.4 % (0-4); Hematocrit 37.9 % (37.0-47.0); Hemoglobin 13.6 g/dl (12.0-16.0); Imm Gran Abs Auto 0.02 X10*3/uL (0.00-0.03); Imm Gran Pct Auto 0.2 % (0.0-0.4); Lymphocytes Absolute Auto 3.2 X10*3/uL (1.2-4.9); Lymphocytes Percent Auto 34.1 % (20-40); Mean Corpuscular HGB Conc 35.9 g/dl (31.0-35.0); Mean Corpuscular Hemoglobin 29.6 pg (27.0-33.0); Mean Corpuscular Volume 82.6 fL (80.0-98.0); Mean Platelet Volume 9.5 fL (9.4-12.3); Monocytes Absolute Auto 0.5 X10*3/uL (0.1-1.2); Monocytes Percent Auto 5.5 % (2-11); Neutrophils Absolute Auto 5.6 x10*3/uL (2.0-8.3); Neutrophils Percent Auto 59.5 % (45-73); Platelet Count 261 X10*3/uL (160-400); Red Blood Count 4.59 X10*6/uL (4.20-5.50); Red Cell Distribution Width 11.8 % (11.0-16.0); White Blood Count 9.4 X10*3/uL (4.8-10.8)
[2024-03-09 17:28] LABS: Alanine Aminotransferase 27 U/L (0-31); Albumin Level 4.1 g/dL (3.5-5.0); Alkaline Phosphatase 94 U/L (39-117); Anion Gap 12 (12-20); Aspartate Amino Transferase 19 U/L (5-31); Bilirubin Total 0.7 mg/dL (0.0-1.0); Blood Urea Nitrogen 10 mg/dL (9-16); Calcium 9.7 mg/dL (8.4-10.2); Carbon Dioxide 25 mmol/L (22-29); Chloride 100 mmol/L (96-108); Creatinine Clr Calc Pharmacy 68.9; Estimated Glomerular Filt Rate 43; HCG Quantitative < 2 mIU/mL; Magnesium 1.7 mg/dL (1.6-2.6); Potassium 4.4 mmol/L (3.3-5.1); Sodium 133 mmol/L (135-145); Total Protein 7.6 g/dL (6.5-8.0)
[2024-03-09 17:32] LABS: Glucose Random 498 mg/dL (60-115)
[2024-03-09 17:46] LABS: Influenza A PCR NEGATIVE (Negative); Influenza B PCR NEGATIVE (Negative); Resp Syncy Virus RNA Qual PCR NEGATIVE (Negative); SARS COV2 PCR INHOUSE NEGATIVE (Negative)
[2024-03-09 19:39] LABS: Beta-Hydroxybutyrate 0.08 mmol/L (0.02-0.27)
[2024-03-09 19:51] LABS: Appearance Urine Clear; Color Urine Yellow; Glucose Urine UA >=1000 mg/dL (Negative); Leukocyte Esterase Urine Negative (Negative); Nitrite Urine Negative (Negative); Specific Gravity - Urine >= 1.030 (1.005-1.025); UMIC TRIGGER UACC YES; Urine Blood Negative (Negative); Urine Ketones Negative (Negative); Urine Protein Negative (Neg-Trace)
[2024-03-09 19:52] LABS: UPreg QC Valid YES; Urine Pregnancy NEGATIVE (NEGATIVE)
[2024-03-09 20:03] LABS: Bacteria Urine None Seen (None Seen); Hyaline Casts Urine 0-2 /LPF (0-2); RBC Urine 0-2 /HPF (0-2); WBC Urine 0-5 /HPF (0-5)
[2024-03-09 20:22] VITALS: BP 114/70; PULSE 59; RESP 15; TEMP 36.7; O2SAT 100
[2024-03-09] MEDS: 0.9 % Sodium Chloride 1,000 ML 999 ML IV ×2 (20:33→20:34)
[2024-03-09 21:27] LABS: Glucose, Whole Blood 271 mg/dL (60-115)
[2024-03-09 21:55] VITALS: BP 114/70; PULSE 59; RESP 15; TEMP 36.7; O2SAT 100
== END 2024-03-09 21:57 | disposition home or self-care (01) ==
PROVIDERS: Physician Assistant; Registered Nurse Emergency; Emergency Provider Emergency Medicine
DX: R07.89 Other chest pain (principal); R53.1 Weakness; R42 Dizziness and giddiness; R35.0 Frequency of micturition; R11.2 Nausea with vomiting, unspecified; Z03.818 Encounter for observation for suspected exposure to other biological agents ruled out; Z79.899 Other long term (current) drug therapy
CPT/HCPCS: 0241U; 80053; 81001; 81025; 82010; 82947; 83735; 84702; 85025; 93005; 96360; 96361; 99284; 99285

== ENCOUNTER → 2024-03-09 16:39 | Outpatient (BNV) | payer OTHER, SELFPAY | PROVIDERS: Emergency Provider Emergency Medicine; Visit Provider Internal Medicine | DX: R07.9 Chest pain, unspecified (principal) | CPT/HCPCS: 93010 ==

== ENCOUNTER 2024-03-10 19:18 | Emergency (ER) | payer OTHER, SELFPAY ==
--- NOTE | ~2024-03-10 | XR_ITS ---
EXAMINATION: XR CHEST CLINICAL INFORMATION: Chest pain. COMPARISON: None available. TECHNIQUE: 2 views of the chest were obtained. FINDINGS: Normal appearance of the cardiomediastinal silhouette. Minimal bronchial wall thickening more noticeable in the right lung. No dense consolidation. No pleural effusion or pneumothorax. No acute osseous findings. XR/XR chest 2V IMPRESSION: Minimal bronchial wall thickening which could indicate small airways disease. No consolidation or pleural effusion.
[2024-03-10 19:43] VITALS: BP 123/70; PULSE 72; RESP 18; TEMP 36.4; O2SAT 98; BMI 29.9
--- NOTE | 2024-03-10 19:44 | ED_ITS ---
HPI - General Adult General Chief complaint: Chest Pain Stated complaint: nausea ? on new med Time Seen by Provider: 03/11/24 04:48 History of Present Illness ED Provider: Nuzhat GUTIERREZ narrative: The patient is a 34-year-old female who is from [facility]. Apparently for about a week she has has had increased thirst. She was seen in the emergency room here for this complaint yesterday and found to have a blood sugar in the 400s. She was hydrated and given a prescription for metformin. She was able to waste picker the prescription for med form but did not take any today. She had some chest pain and came to the emergency room. Related Data Previous Rx's ?Medication ?Instructions ?Recorded naproxen 500 mg tablet 500 mg PO BID PRN pain 7 days #14 10/28/23 tabs acetaminophen 500 mg tablet 500 mg PO Q6H PRN pain #30 tabs 11/04/23 (Tylenol Extra Strength) cephalexin 250 mg capsule 250 mg PO QID 7 days #28 caps 11/04/23 metformin 500 mg tablet 500 mg PO BID #60 tabs 03/09/24 Allergies Allergy/AdvReac Type Severity Reaction Status Date / Time No Known Allergies Allergy Verified 03/10/24 19:48 Review of Systems 2 Review of Systems: Yes all other systems are reviewed and are negative PMFSH Past Medical History Medical History Abscess of shoulder Social History Social History (Updated 11/13/23 @ 14:44 by LEONIDES Patino) Patient Tobacco Use Status: Never used Tobacco Smoked in Last 30 Days: No Use of substances other than those prescribed or required for medical reasons: No Advance Directives: No Advance Directives Information Provided: No Do you have a plan to hurt others: No Plan Patient : No Physical Exam ED Vital Signs: Vital Signs - 24 hr 03/10/24 19:43 03/11/24 00:41 03/11/24 02:00 Temperature 97.6 F 98.5 F 98.4 F Pulse Rate 72 64 73 Respiratory Rate 18 16 14 Blood Pressure 123/70 132/60 124/77 Pulse Oximetry 98 100 100 Oxygen Delivery Method Room Air Room Air Room Air 03/11/24 03:59 03/11/24 06:00 08/13/24 07:06 Temperature 97.4 F 97.3 F 97.3 F Pulse Rate 92 73 73 Respiratory Rate 14 16 16 Blood Pressure 112/75 121/72 121/72 Pulse Oximetry 96 96 96 Oxygen Delivery Method Room Air Room Air Room Air BMI result Body Mass Index 29.9 Const Other: The patient was sleeping calmly when I 1st encountered her. There has been a long wait in the emergency room and she had fallen asleep on the emergency room stretcher. She woke easily to a normal mental status. She did not seem in acute distress. HENMT Other: Face is symmetrical. Mucous membranes moist. Eyes Other: Pupils are round, equal, reactive to light, extraocular movements intact, eyes unremarkable. Neck Other: No cervical adenopathy. Resp Effort & Inspection: normal respiratory effort Auscultation: clear to auscultation bilaterally Cardio Rate: regular rate Rhythm: regular rhythm Heart sounds: S1 normal heart sound present and S2 normal heart sound present GI Other: The abdomen is soft and nontender Skin Other: Skin is dry and unremarkable Lesions: no lesions Rashes: no rashes Neuro Other: The patient is awake, alert, pleasant, cooperative. She speaks primarily Brazilian Creole. She was interviewed with a Creole hand cloth cutter. Speech seems clear. Face symmetrical. Eye movements intact. Pupillary exam is normal. Moves all extremities normally with a steady gait. Extrem Other: No calf swelling or tenderness Course Course Course Narrative: RME performed by Josette Ellington PA-C. Patient is a 34 year old assigned female at presenting to the emergency department with chest pain. Patient states that she was diagnosed with diabetes yesterday and told to follow up with a PCP but she came here because her chest hurts and she needs help finding a doctor. Detailed physical exam and review of systems are deferred to the emergency room clinician. EKG, labs, imaging, and swabs ordered. Patient placed back in the waiting room pending room availability and results. Medications Administered Discontinued Medications Generic Name Dose Route Start Last Admin Trade Name Freq PRN Reason Stop Dose Admin Lactated Ringer's 1,000 mls @ 999 mls/hr 03/11/24 05:00 03/11/24 05:20 Lr IV 03/11/24 06:00 999 mls/hr .Q1H1M JANETT Administration Metformin HCl 500 mg 03/11/24 04:52 03/11/24 05:19 Metformin Hcl 500 Mg Tablet PO 03/11/24 04:53 500 mg ONCE ONE Administration Medical Decision Making Medical Decision Making MDM Narrative: The patient is a newly diagnosed type 2 diabetic. She was seen here yesterday and given IV fluids and a prescription for metformin. She says she had filled the prescription for metformin but had not yet taken a dose. The patient's blood sugar is slightly over 400 but otherwise she does not seem acutely ill. She was given a L of IV crystalloid and a dose of metformin. She will be discharged to continue taking the previously prescribed metformin which she has picked up but not yet started herself at home. She should work on getting a primary care doctor. Lab Data 03/10/24 20:15 03/10/24 20:14 Labs: Lab Results 03/10/24 03/10/24 03/11/24 Range/Units 20:14 20:15 06:40 WBC 8.3 (4.8-10.8) X10*3/uL RBC 4.36 (4.20-5.50) X10*6/uL Hgb 13.0 (12.0-16.0) g/dl Hct 35.9 L (37.0-47.0) % MCV 82.3 (80.0-98.0) fL MCH 29.8 (27.0-33.0) pg MCHC 36.2 H (31.0-35.0) g/dl RDW 11.9 (11.0-16.0) % Plt Count 249 (160-400) X10*3/uL MPV 9.4 (9.4-12.3) fL Immature Gran % (Auto) 0.2 (0.0-0.4) % Neut % (Auto) 56.5 (45-73) % Lymph % (Auto) 36.9 (20-40) % [place] % (Auto) 5.4 (2-11) % Eos % (Auto) 0.6 (0-4) % Baso % (Auto) 0.4 (0-2) % Lymph # (Auto) 3.1 (1.2-4.9) X10*3/uL [place] # (Auto) 0.5 (0.1-1.2) X10*3/uL Eos # (Auto) 0.1 (0.0-0.4) X10*3/uL Baso # (Auto) 0.0 (0.0-0.2) X10*3/uL Abs Immat Gran (auto) 0.02 (0.00-0.03) X10*3/uL Absolute Neuts (auto) 4.7 (2.0-8.3) x10*3/uL Absolute Nucleated RBC 0.000 (0.0-0.012) X10*3/uL Nucleated RBC % (auto) 0.0 (0.0-0.2) /100WBC Sodium 136 (135-145) mmol/L Potassium 4.0 (3.3-5.1) mmol/L Chloride 106 (96-108) mmol/L Carbon Dioxide 22 (22-29) mmol/L Anion Gap 12 (12-20) BUN 7 L (9-16) mg/dL Creatinine 1.02 (0.5-1.4) mg/dL Estim Creat Clear Calc 85.6 Estimated GFR > 60 POC Glucose 278 H (60-115) mg/dL Random Glucose 418 H* (60-115) mg/dL Calcium 8.9 D (8.4-10.2) mg/dL Magnesium 1.8 (1.6-2.6) mg/dL Total Bilirubin 0.6 (0.0-1.0) mg/dL AST 20 (5-31) U/L ALT 27 (0-31) U/L Alkaline Phosphatase 89 (39-117) U/L Troponin I High Sens < 2.7 (<3.5-17.0) ng/L Total Protein 7.0 (6.5-8.0) g/dL Albumin 3.8 (3.5-5.0) g/dL Beta HCG, Quant < 2 mIU/mL Urine Color Yellow Urine Appearance Clear Urine pH 7.0 (5.0-9.0) Ur Specific [place] >= 1.030 H (1.005-1.025) Urine Protein Negative (Neg-Trace) mg/dL Urine Glucose (UA) >=1000 H (Negative) mg/dL Urine Ketones Negative (Negative) mg/dL Urine Blood Trace H (Negative) Urine Nitrite Negative (Negative) Ur Leukocyte Esterase Small (1+) H (Negative) Urine RBC 0-2 (0-2) /HPF Urine WBC 6-10 H (0-5) /HPF Ur Squamous Epith Cells 3-5 (0-2) /HPF Urine Bacteria None Seen (None Seen) Hyaline Casts 0-2 (0-2) /LPF Influenza Type A (PCR) NEGATIVE (Negative) Influenza Type B (PCR) NEGATIVE (Negative) RSV RNA Qual (PCR) NEGATIVE (Negative) SARS-CoV-2 RNA (RT-PCR) NEGATIVE (Negative) Discharge Plan Discharge Clinical Impression: Type 2 diabetes mellitus, Chest pain Patient Disposition: Home, Self-Care Instructions: Type 2 Diabetes in Adults: New Diagnosis (ED) Additional Instructions: Please make sure that you take the metformin medication 2 times a day as prescribed. Please work on getting a new primary care doctor. You may try the [facility] in [facility] at 02:[address] You may also try the numbers for the clinics associated with this hospital. The numbers are provided on your discharge instructions. Return to the emergency room if you feel significantly worse. Prescriptions: No Action cephalexin 250 mg capsule 250 mg PO QID 7 Days Qty: 28 0RF acetaminophen [Tylenol Extra Strength] 500 mg tablet 500 mg PO Q6H PRN (Reason: pain) Qty: 30 0RF metformin 500 mg tablet 500 mg PO BID Qty: 60 0RF naproxen 500 mg tablet 500 mg PO BID PRN (Reason: pain) 7 Days Qty: 14 0RF Referrals: [facility] [Provider Group] (New onset type 2 diabetes) [facility] [Provider Group] (Call to establish and follow up with a primary care provider. Rele monica etabli epi tuan schulte? flakita crockett.) [facility] Interventions: ED Discharge Assessment Last Done: 03/11/24 07:06 Discharge Date/Time: 03/11/24 07:07 Print Language: Juan Parnell
--- NOTE | 2024-03-10 19:47 | ECG_ITS ---
Test Reason : chest pain Blood Pressure : / mmHG Vent. Rate : 066 BPM Atrial Rate : 066 BPM P-R Int : 138 ms QRS Dur : 080 ms QT Int : 376 ms P-R-T Axes : 049 054 007 degrees QTc Int : 394 ms Normal sinus rhythm Normal ECG When compared with ECG of 09-MAR-2024 16:32, No significant change was found Referred By: Josette Ellington Electronically Signed By:CHANTEL MARTINEZ
[2024-03-10 20:20] LABS: MANUAL DIFF FLAG NO
[2024-03-10 20:22] LABS: Basophils Percent Auto 0.4 % (0-2); Eosinophils Absolute Auto 0.1 X10*3/uL (0.0-0.4); Eosinophils Percent Auto 0.6 % (0-4); Hematocrit 35.9 % (37.0-47.0); Imm Gran Abs Auto 0.02 X10*3/uL (0.00-0.03); Imm Gran Pct Auto 0.2 % (0.0-0.4); Lymphocytes Absolute Auto 3.1 X10*3/uL (1.2-4.9); Lymphocytes Percent Auto 36.9 % (20-40); Mean Corpuscular HGB Conc 36.2 g/dl (31.0-35.0); Mean Corpuscular Hemoglobin 29.8 pg (27.0-33.0); Mean Corpuscular Volume 82.3 fL (80.0-98.0); Mean Platelet Volume 9.4 fL (9.4-12.3); Monocytes Absolute Auto 0.5 X10*3/uL (0.1-1.2); Monocytes Percent Auto 5.4 % (2-11); Neutrophils Absolute Auto 4.7 x10*3/uL (2.0-8.3); Neutrophils Percent Auto 56.5 % (45-73); Platelet Count 249 X10*3/uL (160-400); Red Blood Count 4.36 X10*6/uL (4.20-5.50); Red Cell Distribution Width 11.9 % (11.0-16.0); White Blood Count 8.3 X10*3/uL (4.8-10.8)
[2024-03-10 20:23] LABS: Appearance Urine Clear; Color Urine Yellow; Glucose Urine UA >=1000 mg/dL (Negative); Specific Gravity - Urine >= 1.030 (1.005-1.025); Urine Blood Trace (Negative); Urine Protein Negative (Neg-Trace)
[2024-03-10 20:24] LABS: Leukocyte Esterase Urine Small (1+) (Negative); Nitrite Urine Negative (Negative); UMIC TRIGGER UACC YES; Urine Ketones Negative (Negative)
[2024-03-10 20:28] LABS: Bacteria Urine None Seen (None Seen); Hyaline Casts Urine 0-2 /LPF (0-2); RBC Urine 0-2 /HPF (0-2); UACC Culture Trigger YES
[2024-03-10 20:44] LABS: HCG Quantitative < 2 mIU/mL; Troponin-I High Sensitivity < 2.7 ng/L (<3.5-17.0)
[2024-03-10 20:46] LABS: Alanine Aminotransferase 27 U/L (0-31); Albumin Level 3.8 g/dL (3.5-5.0); Alkaline Phosphatase 89 U/L (39-117); Anion Gap 12 (12-20); Aspartate Amino Transferase 20 U/L (5-31); Bilirubin Total 0.6 mg/dL (0.0-1.0); Blood Urea Nitrogen 7 mg/dL (9-16); Calcium 8.9 mg/dL (8.4-10.2); Carbon Dioxide 22 mmol/L (22-29); Chloride 106 mmol/L (96-108); Creatinine Clr Calc Pharmacy 85.6; Estimated Glomerular Filt Rate > 60; Glucose Random 418 mg/dL (60-115); Magnesium 1.8 mg/dL (1.6-2.6); Sodium 136 mmol/L (135-145)
[2024-03-10 20:58] LABS: Influenza A PCR NEGATIVE (Negative); Influenza B PCR NEGATIVE (Negative); Resp Syncy Virus RNA Qual PCR NEGATIVE (Negative); SARS COV2 PCR INHOUSE NEGATIVE (Negative)
[2024-03-11 00:41] VITALS: BP 132/60; PULSE 64; RESP 16; TEMP 36.9; O2SAT 100
[2024-03-11 02:00] VITALS: BP 124/77; PULSE 73; RESP 14; TEMP 36.9; O2SAT 100
[2024-03-11 03:59] VITALS: BP 112/75; PULSE 92; RESP 14; TEMP 36.3; O2SAT 96
--- NOTE | 2024-03-11 04:19 | PC.NURSE ---
pt is resting comfortably on stretcher in no apparent distress, still waiting to be seen by ED provider
--- NOTE | 2024-03-11 04:53 | PC.NURSE ---
in room utilizing [facility] [place] [employer] specialist at bedside.
[2024-03-11] MEDS: metFORMIN HCl 500 MG TABLET PO (05:19)
[2024-03-11] MEDS: Lactated Ringers 1,000 ML 999 ML IV (05:20)
[2024-03-11 06:00] VITALS: BP 121/72; PULSE 73; RESP 16; TEMP 36.3; O2SAT 96
[2024-03-11 06:43] LABS: Glucose, Whole Blood 278 mg/dL (60-115)
[2024-03-11 07:06] VITALS: BP 121/72; PULSE 73; RESP 16; TEMP 36.3; O2SAT 96
== END 2024-03-11 07:07 | disposition home or self-care (01) ==
PROVIDERS: Physician Assistant Medical; Emergency Provider Emergency Medicine
DX: R07.89 Other chest pain (principal); R11.0 Nausea; E11.9 Type 2 diabetes mellitus without complications; Z79.899 Other long term (current) drug therapy; Z79.84 Long term (current) use of oral hypoglycemic drugs; Z03.818 Encounter for observation for suspected exposure to other biological agents ruled out
CPT/HCPCS: 0241U; 36415; 71046; 80053; 81001; 82947; 83735; 84484; 84702; 85025; 87086; 87147; 93005; 99283; 99285; J7120

== ENCOUNTER → 2024-03-10 19:47 | Outpatient (BNV) | payer OTHER, SELFPAY | PROVIDERS: Emergency Provider Emergency Medicine; Visit Provider Internal Medicine | DX: R07.9 Chest pain, unspecified (principal) | CPT/HCPCS: 93010 ==

== ENCOUNTER 2024-04-16 17:00 | Emergency (ER) | payer OTHER, SELFPAY ==
--- NOTE | 2024-04-16 17:49 | ED.GENADULT ---
HPI - General Adult General Chief complaint: Skin/Abscess/Foreign Body Stated complaint: lump r armpit Time Seen by Provider: 04/16/24 21:28 Source: patient Mode of arrival: ambulatory Limitations: language barrier (american Creole) History of Present Illness HPI narrative: Patient is a 34-year-old female presenting to emergency department for evaluation of a painful lump beneath her right armpit. She reports that this started yesterday. She is requesting removal. Reports a history of similar abscesses requiring incision and drainage in the past. Has a history of type 2 diabetes. States her blood sugars have been well controlled. She denies any additional skin wounds or lesions at this time. Denies fevers or chills Related Data Previous Rx's ?Medication ?Instructions ?Recorded naproxen 500 mg tablet 500 mg PO BID PRN pain 7 days #14 10/28/23 tabs acetaminophen 500 mg tablet 500 mg PO Q6H PRN pain #30 tabs 11/04/23 (Tylenol Extra Strength) cephalexin 250 mg capsule 250 mg PO QID 7 days #28 caps 11/04/23 metformin 500 mg tablet 500 mg PO BID #60 tabs 03/09/24 cephalexin 500 mg capsule 500 mg PO QID #27 caps 04/16/24 doxycycline hyclate 100 mg capsule 100 mg PO BID #13 caps 04/16/24 Allergies Allergy/AdvReac Type Severity Reaction Status Date / Time No Known Allergies Allergy Verified 04/16/24 17:57 Review of Systems Review of Systems: Yes all other systems are reviewed and are negative PMFSH Past Medical History Attestation statement: The following information was validated with the patient. Source: old records reviewed Medical History Abscess of shoulder Social History Social History (Updated 11/13/23 @ 14:44 by LEONIDES Patino) Patient Tobacco Use Status: Never used Tobacco Advance Directives: No Advance Directives Information Provided: No Physical Exam ED Vital Signs: Vital Signs - 24 hr 04/16/24 17:53 04/16/24 22:13 04/16/24 23:52 Temperature 97.9 F 98.0 F Pulse Rate 84 66 70 Respiratory Rate 18 16 14 Blood Pressure 132/81 114/72 110/70 Pulse Oximetry 99 99 100 Oxygen Delivery Method Room Air Room Air BMI result Body Mass Index 28.9 Appearance: Alert.?Oriented to person, place and time. No acute distress.?Normal affect. Neck: Normal inspection.? Neck supple.?? CVS: Heart sounds normal. Normal heart rate and rhythm.? Pulses normal.?? Respiratory: No respiratory distress.? Lung sounds clear to auscultation bilaterally?? Abdomen: Soft and non-tender. Normoactive bowel sounds. No pulsatile mass.?? Skin: Skin warm and dry.? Normal skin color.? Right axilla with once eating meter X 2 cm palpable induration with notable tenderness on exam. Slight area of fluctuance centrally. Surrounding erythema Extremities: No lower extremity edema.? Neuro: Moves all extremities spontaneously. Sensation intact bilaterally. Ambulates with normal steady gait. Course Course Course Narrative: This is a rapid medical exam performed by Albert Awad NP: Additional HPI, ROS, PE not included below will be deferred to primary provider. Patient is a 34-year-old [place] Citizen Creole speaking female with history of T2DM, abscesses requiring drainage in the past presenting to the ED with complaint of abscess to right axilla, fevers. States she noted the abscess yesterday morning. Denies any spontaneous drainage.. Plan: likely needs I&D Medications Administered Discontinued Medications Generic Name Dose Route Start Last Admin Trade Name Freq PRN Reason Stop Dose Admin Cephalexin HCl 500 mg 04/16/24 23:38 04/16/24 23:47 Cephalexin 500 Mg Capsule PO 04/16/24 23:39 500 mg ONCE ONE Administration Doxycycline Monohydrate 100 mg 04/16/24 23:38 04/16/24 23:47 Doxycycline Monohydrate 100 Mg Capsule PO 04/16/24 23:39 100 mg ONCE ONE Administration Lidocaine HCl 5 ml 04/16/24 22:19 04/16/24 23:04 Lidocaine Hcl 1 % Mpf 5 Ml Vial SUBCUT 04/16/24 22:20 5 ml ONCE ONE Administration Procedures Abscess I/D Site: other (Axilla) Side (if applicable): right Local Anesthetic: lidocaine 1% Amount of anesthesia used (mL): 5 Technique: incised with blade Amount of fluid expressed (mL): 1 Irrigation: Yes Packing used?: none Medical Decision Making Medical Decision Making MDM Narrative: Patient is a 34-year-old female with past medical history of type 2 diabetes presenting to emergency department for a right axillary lump as per HPI. Concern for lymphadenopathy versus abscess. No recent viral or ill like symptoms. Denies any breast pain or recent palpable breast masses. On evaluation has an erythematous tender induration with small central fluctuance concerning for abscess, I did discuss with patient that it may be premature for incision and drainage but she is requesting attempt at this time. This was performed as per procedural portion of this note, 1 CC purulent drainage removed the small amount of bleeding. Area remains firm and tender. I attempted to break any internal loculations without further drainage. I discussed conservative treatment, warm moist compresses, and course of oral antibiotics. Advised close outpatient follow-up and reviewed worrisome signs and symptoms that would warrant re-evaluation. All questions were answered. Differential Diagnosis Differential Diagnoses: The differential diagnosis associated with the presentation includes (See narrative above) External Record Review External record reviewed: Outpatient record Tests considered The following testing was considered but not selected: Considered CBC evaluate for leukocytosis as she is a diabetic, no signs of systemic toxicity, anticipate change to current treatment regimen, serum labs deferred Prescription Management I considered prescription management with: Antibiotic Chronic Conditions Patient?s care impacted by: Diabetes Discharge Plan Discharge Clinical Impression: Abscess of axilla, right Patient Disposition: Home, Self-Care Additional Instructions: You can take ibuprofen 200 mg, 3 tablets (600mg) every 6-8 hours as needed for pain, in addition to Tylenol 500 mg, 2 tablets (1,000mg) every 4-6 hours as needed for pain, but not to exceed 3 doses daily (3,000mg).? Apply warm moist compresses for 5-10 minutes 3-4 times daily. Complete the entire course of antibiotics as prescribed. Begin taking this tomorrow morning as you received your 1st dose in the emergency department. You should have this re-evaluated if it increases in size, becomes more painful, if you develop fevers or chills. Follow-up with primary care doctor. Prescriptions: New cephalexin 500 mg capsule 500 mg PO QID Qty: 27 0RF doxycycline hyclate 100 mg capsule 100 mg PO BID Qty: 13 0RF No Action cephalexin 250 mg capsule 250 mg PO QID 7 Days Qty: 28 0RF acetaminophen [Tylenol Extra Strength] 500 mg tablet 500 mg PO Q6H PRN (Reason: pain) Qty: 30 0RF metformin 500 mg tablet 500 mg PO BID Qty: 60 0RF naproxen 500 mg tablet 500 mg PO BID PRN (Reason: pain) 7 Days Qty: 14 0RF Referrals: Physician,Unknown J [Primary Care Provider] - Interventions: ED Discharge Assessment Last Done: 04/16/24 23:52 Discharge Date/Time: 04/16/24 23:55 Print Language: Juan Parnell
[2024-04-16 17:53] VITALS: BP 132/81; PULSE 84; RESP 18; TEMP 36.6; O2SAT 99; BMI 28.9
[2024-04-16 22:13] VITALS: BP 114/72; PULSE 66; RESP 16; O2SAT 99
[2024-04-16] MEDS: Lidocaine HCl 1 % MPF 5 ML VIAL SUBCUT (23:04)
[2024-04-16] MEDS: cephALEXin 500 MG CAPSULE PO (23:47)
[2024-04-16] MEDS: Doxycycline Monohydrate 100 MG CAPSULE PO (23:47)
--- NOTE | 2024-04-16 23:49 | PC.NURSE ---
Pt a&ox4, no signs of distress Pt medicated per mar Plan of care ongoing.
[2024-04-16 23:52] VITALS: BP 110/70; PULSE 70; RESP 14; TEMP 36.7; O2SAT 100
== END 2024-04-16 23:55 | disposition home or self-care (01) ==
PROVIDERS: Emergency Provider Emergency Medicine
DX: L02.411 Cutaneous abscess of right axilla (principal); R22.31 Localized swelling, mass and lump, right upper limb
CPT/HCPCS: 10060; 99283; 99284

== ENCOUNTER 2024-06-11 15:47 | Emergency (ER) | payer OTHER, SELFPAY ==
[2024-06-11 15:54] VITALS: BP 113/78; PULSE 70; RESP 18; TEMP 35.3; O2SAT 100; BMI 26.1
--- NOTE | 2024-06-11 15:57 | ECG_ITS ---
Test Reason : EPIGASTRIC PAIN Blood Pressure : / mmHG Vent. Rate : 066 BPM Atrial Rate : 066 BPM P-R Int : 140 ms QRS Dur : 074 ms QT Int : 390 ms P-R-T Axes : 060 061 019 degrees QTc Int : 408 ms Normal sinus rhythm Normal ECG When compared with ECG of 10-MAR-2024 20:02, No significant change was found Referred By: Carlos Calixto Electronically Signed By:Dakota Maldonado
--- NOTE | 2024-06-11 16:05 | ED.GENADULT ---
HPI - General Adult General Chief complaint: Abdominal Pain Stated complaint: Weakness, diabetic Time Seen by Provider: 06/11/24 16:56 Source: patient Mode of arrival: ambulatory Limitations: no limitations History of Present Illness ED Provider: Carlos Patel PA-C HPI narrative: 34 yold female with pmh of diabetes presents to the ED for weakness described as fatigue. patient states she has been without her diabetes medication since sunday and thinks her glucose is high. Patient is a recent diagnosed diabetic. patient denies any slurred speech, facial droop, loss of vision, nuase[place], vomitting, dizziness, or paralysis of extremities. Patient also states mild epigastric tendrness. Patient glucose is 413 at triage Related Data Previous Rx's ?Medication ?Instructions ?Recorded naproxen 500 mg tablet 500 mg PO BID PRN pain 7 days #14 10/28/23 tabs acetaminophen 500 mg tablet 500 mg PO Q6H PRN pain #30 tabs 11/04/23 (Tylenol Extra Strength) cephalexin 250 mg capsule 250 mg PO QID 7 days #28 caps 11/04/23 metformin 500 mg tablet 500 mg PO BID #60 tabs 03/09/24 cephalexin 500 mg capsule 500 mg PO QID #27 caps 04/16/24 doxycycline hyclate 100 mg capsule 100 mg PO BID #13 caps 04/16/24 metformin 500 mg tablet 500 mg PO BID 30 days #60 tabs 06/11/24 Allergies Allergy/AdvReac Type Severity Reaction Status Date / Time No Known Allergies Allergy Verified 06/11/24 15:56 Review of Systems Review of Systems: fatigue and mild epigastric pain. Yes all other systems are reviewed and are negative [facility] Past Medical History Medical History Abscess of shoulder Social History Social History (Updated 11/13/23 @ 14:44 by LEONIDES Patino) Alcohol intake: former Patient Tobacco Use Status: Never used Tobacco Smoked in Last 30 Days: No Use of substances other than those prescribed or required for medical reasons: No Advance Directives: No Advance Directives Information Provided: No Do you have a plan to hurt others: No Plan Physical Exam ED Vital Signs: Vital Signs - 24 hr 06/11/24 15:54 06/11/24 17:18 06/11/24 18:31 Temperature 95.6 F L 98.3 F 98.3 F Pulse Rate 70 64 88 Respiratory Rate 18 18 18 Blood Pressure 113/78 116/71 106/60 Pulse Oximetry 100 97 98 Oxygen Delivery Method Room Air Room Air Room Air 06/11/24 19:38 06/11/24 20:57 Temperature 98.2 F 98.5 F Pulse Rate 65 65 Respiratory Rate 16 16 Blood Pressure 118/76 116/70 Pulse Oximetry 100 100 Oxygen Delivery Method Room Air Room Air BMI result Body Mass Index 26.1 Const General: cooperative, healthy appearing, comfortable, no acute distress, well developed, alert, awake and Physically active Orientation/consciousness: patient oriented x3 [facility] Head: Yes normal to inspection, Yes No palpable skull fracture present, Yes normocephalic and Yes atraumatic Eyes General: appearance normal, both eyes and all related structures Neck Neck: Yes normal visual inspection, Yes full ROM, Yes no lymphadenopathy, Yes no meningeal signs, Yes trachea midline, Yes supple, No anterior neck swelling and No tender Chest Chest palpation & inspection: normal inspection of the chest and normal palpation of entire chest wall Resp Effort & Inspection: normal respiratory effort and able to speak in complete sentences Auscultation: clear to auscultation bilaterally Cardio Jugular venous distension: no JVD Heart sounds: S1 normal heart sound present and S2 normal heart sound present GI Inspection: Yes normal to inspection Palpation (GI): Soft to palpation, not firm, nontender, no guarding and not rigid General: Yes no CVA tenderness Back/Spine/Pelvis Back: no CVA tenderness and No back tenderness Skin General skin exam: no rashes or lesions noted, elasticity normal and turgor normal Neuro General: patient oriented x3, gait normal, tone normal, moves all extremities, Normal light touch and pain sensation, no meningeal signs, no focal motor deficits and CN's II-XI intact bilaterally Extrem General: Yes normal to inspection, Yes full ROM and Yes capillary refill normal Psych Appearance: grossly normal, well kempt and not disheveled Course Course Course Narrative: RME: 34-year-old female presents to ED for generalized weakness and epigastric pain. Patient states her glucose is high. Patient is recently out of his diabetes has not checked her glucose recently. Negative for any signs of stroke. NIH score is 0. EKG labs ordered. Patient states it has been without her diabetic oral medications since Sunday. Patient states her medication ran out. Medications Administered Discontinued Medications Generic Name Dose Route Start Last Admin Trade Name Shannon PRN Reason Stop Dose Admin Sodium Chloride 1,000 mls @ 999 mls/hr 06/11/24 16:46 06/11/24 20:34 Ns IV 06/11/24 17:46 Infused .Q1H1M STA Infusion Sodium Chloride 1,000 mls @ 999 mls/hr 06/11/24 16:46 06/11/24 20:34 Ns IV 06/11/24 17:46 Infused .Q1H1M STA Infusion Insulin Human Regular 5 unit 06/11/24 18:47 06/11/24 19:01 Insulin Regular, Human 100 Unit/Ml 10 Ml Vial IVPUSH 06/11/24 18:48 5 unit ONCE ONE Administration Medical Decision Making Medical Decision Making [facility] Narrative: 34-year-old female presents to ED for generalized weakness. Patient states she has not had her diabetes medication since Sunday. Patient states she ran out. Patient states recently diagnosed with diabetes last month and has no primary care provider. Patient ran out of metformin. Patient denies any slurred speech, facial droop, blurry vision, paralysis of extremities. Patient is hyperglycemic at 04:13. Two troponins negative. Patient not in DKA. Glucose improved with fluids and insulin. EKG negative STEMI. Patient explained worrisome signs informed to return to the ED immediately. NIH 0. No need for head ct scan needed. no needed for IV insulin. SARS is negative. UA negative for UTI. patient explained worrisome signs and informed to follow up with PCP. NOt suspecting stroke, UTI, or TX. Differential Diagnosis Differential Diagnoses: The differential diagnosis associated with the presentation includes (DM, DKA. TX) Admission/Observation Consideration of admission/observation: Escalation of care including admission/observation considered Lab Data [facility] Lab Attestation statement: I reviewed the patient's lab results. 06/11/24 16:12 06/11/24 16:12 Labs: Lab Results 06/11/24 06/11/24 06/11/24 Range/Units 16:00 16:12 17:14 WBC 8.2 (4.8-10.8) X10*3/uL RBC 4.85 (4.20-5.50) X10*6/uL Hgb 14.2 (12.0-16.0) g/dl Hct 40.6 (37.0-47.0) % MCV 83.7 (80.0-98.0) fL MCH 29.3 (27.0-33.0) pg MCHC 35.0 (31.0-35.0) g/dl RDW 11.9 (11.0-16.0) % Plt Count 296 (160-400) X10*3/uL MPV 9.6 (9.4-12.3) fL Immature Gran % (Auto) 0.2 (0.0-0.4) % Neut % (Auto) 52.8 (45-73) % Lymph % (Auto) 41.1 H (20-40) % Beckham % (Auto) 5.1 (2-11) % Eos % (Auto) 0.4 (0-4) % Baso % (Auto) 0.4 (0-2) % Lymph # (Auto) 3.4 (1.2-4.9) X10*3/uL Beckham # (Auto) 0.4 (0.1-1.2) X10*3/uL Eos # (Auto) 0.0 (0.0-0.4) X10*3/uL Baso # (Auto) 0.0 (0.0-0.2) X10*3/uL Abs Immat Gran (auto) 0.02 (0.00-0.03) X10*3/uL Absolute Neuts (auto) 4.4 (2.0-8.3) x10*3/uL Absolute Nucleated RBC 0.000 (0.0-0.012) X10*3/uL Nucleated RBC % (auto) 0.0 (0.0-0.2) /100WBC PT 10.4 L (10.9-12.4) SEC INR 0.9 (0.9-1.1) APTT 26.1 (26.0-36.8) SEC Sodium 132 L (135-145) mmol/L Potassium 4.5 (3.3-5.1) mmol/L Chloride 101 (96-108) mmol/L Carbon Dioxide 24 (22-29) mmol/L Anion Gap 12 (12-20) BUN 10 (9-16) mg/dL Creatinine 0.98 (0.5-1.4) mg/dL Estim Creat Clear Calc 86.6 Estimated GFR > 60 POC Glucose 353 H* 342 H (60-115) mg/dL Random Glucose 413 H* (60-115) mg/dL Calcium 9.8 D (8.4-10.2) mg/dL Total Bilirubin 0.4 (0.0-1.0) mg/dL AST 27 (5-31) U/L ALT 39 H (0-31) U/L Alkaline Phosphatase 102 (39-117) U/L Troponin I High Sens < 2.7 (<3.5-17.0) ng/L Total Protein 7.5 (6.5-8.0) g/dL Albumin 3.9 (3.5-5.0) g/dL Lipase 28 (8-78) U/L Beta-Hydroxybutyrate 0.15 (0.02-0.27) mmol/L Beta HCG, Quant < 2 mIU/mL Urine Color Urine Appearance Urine pH (5.0-9.0) Ur Specific [place] Pos (1.005-1.025) Urine Protein (Neg-Trace) mg/dL Urine Glucose (UA) (Negative) mg/dL Urine Ketones (Negative) mg/dL Urine Blood (Negative) Urine Nitrite (Negative) Ur Leukocyte Esterase (Negative) Urine RBC (0-2) /HPF Urine WBC (0-5) /HPF Ur Squamous Epith Cells (0-2) /HPF Urine Bacteria (None Seen) Hyaline Casts (0-2) /LPF Urine Test (NEGATIVE) Influenza Type A (PCR) NEGATIVE (Negative) Influenza Type B (PCR) NEGATIVE (Negative) RSV RNA Qual (PCR) NEGATIVE (Negative) SARS-CoV-2 RNA (RT-PCR) NEGATIVE (Negative) 06/11/24 06/11/24 06/11/24 Range/Units 17:24 18:47 19:10 WBC (4.8-10.8) X10*3/uL RBC (4.20-5.50) X10*6/uL Hgb (12.0-16.0) g/dl Hct (37.0-47.0) % MCV (80.0-98.0) fL MCH (27.0-33.0) pg MCHC (31.0-35.0) g/dl RDW (11.0-16.0) % Plt Count (160-400) X10*3/uL MPV (9.4-12.3) fL Immature Gran % (Auto) (0.0-0.4) % Neut % (Auto) (45-73) % Lymph % (Auto) (20-40) % Beckham % (Auto) (2-11) % Eos % (Auto) (0-4) % Baso % (Auto) (0-2) % Lymph # (Auto) (1.2-4.9) X10*3/uL Beckham # (Auto) (0.1-1.2) X10*3/uL Eos # (Auto) (0.0-0.4) X10*3/uL Baso # (Auto) (0.0-0.2) X10*3/uL Abs Immat Gran (auto) (0.00-0.03) X10*3/uL Absolute Neuts (auto) (2.0-8.3) x10*3/uL Absolute Nucleated RBC (0.0-0.012) X10*3/uL Nucleated RBC % (auto) (0.0-0.2) /100WBC PT (10.9-12.4) SEC INR (0.9-1.1) APTT (26.0-36.8) SEC Sodium (135-145) mmol/L Potassium (3.3-5.1) mmol/L Chloride (96-108) mmol/L Carbon Dioxide (22-29) mmol/L Anion Gap (12-20) BUN (9-16) mg/dL Creatinine (0.5-1.4) mg/dL Estim Creat Clear Calc Estimated GFR POC Glucose 384 H* (60-115) mg/dL Random Glucose (60-115) mg/dL Calcium (8.4-10.2) mg/dL Total Bilirubin (0.0-1.0) mg/dL AST (5-31) U/L ALT (0-31) U/L Alkaline Phosphatase (39-117) U/L Troponin I High Sens < 2.7 (<3.5-17.0) ng/L Total Protein (6.5-8.0) g/dL Albumin (3.5-5.0) g/dL Lipase (8-78) U/L Beta-Hydroxybutyrate (0.02-0.27) mmol/L Beta HCG, Quant mIU/mL Urine Color Yellow Urine Appearance Clear Urine pH 5.5 (5.0-9.0) Ur Specific [place] >= 1.030 H (1.005-1.025) Urine Protein Negative (Neg-Trace) mg/dL Urine Glucose (UA) >=1000 H (Negative) mg/dL Urine Ketones Negative (Negative) mg/dL Urine Blood Negative (Negative) Urine Nitrite Negative (Negative) Ur Leukocyte Esterase Negative (Negative) Urine RBC 0-2 (0-2) /HPF Urine WBC 0-5 (0-5) /HPF Ur Squamous Epith Cells 0-2 (0-2) /HPF Urine Bacteria None Seen (None Seen) Hyaline Casts 0-2 (0-2) /LPF Urine Test NEGATIVE (NEGATIVE) Influenza Type A (PCR) (Negative) Influenza Type B (PCR) (Negative) RSV RNA Qual (PCR) (Negative) SARS-CoV-2 RNA (RT-PCR) (Negative) 06/11/24 06/11/24 Range/Units 19:36 20:33 WBC (4.8-10.8) X10*3/uL RBC (4.20-5.50) X10*6/uL Hgb (12.0-16.0) g/dl Hct (37.0-47.0) % MCV (80.0-98.0) fL MCH (27.0-33.0) pg MCHC (31.0-35.0) g/dl RDW (11.0-16.0) % Plt Count (160-400) X10*3/uL MPV (9.4-12.3) fL Immature Gran % (Auto) (0.0-0.4) % Neut % (Auto) (45-73) % Lymph % (Auto) (20-40) % Beckham % (Auto) (2-11) % Eos % (Auto) (0-4) % Baso % (Auto) (0-2) % Lymph # (Auto) (1.2-4.9) X10*3/uL Beckham # (Auto) (0.1-1.2) X10*3/uL Eos # (Auto) (0.0-0.4) X10*3/uL Baso # (Auto) (0.0-0.2) X10*3/uL Abs Immat Gran (auto) (0.00-0.03) X10*3/uL Absolute Neuts (auto) (2.0-8.3) x10*3/uL Absolute Nucleated RBC (0.0-0.012) X10*3/uL Nucleated RBC % (auto) (0.0-0.2) /100WBC PT (10.9-12.4) SEC INR (0.9-1.1) APTT (26.0-36.8) SEC Sodium (135-145) mmol/L Potassium (3.3-5.1) mmol/L Chloride (96-108) mmol/L Carbon Dioxide (22-29) mmol/L Anion Gap (12-20) BUN (9-16) mg/dL Creatinine (0.5-1.4) mg/dL Estim Creat Clear Calc Estimated GFR POC Glucose 309 H 289 H (60-115) mg/dL Random Glucose (60-115) mg/dL Calcium (8.4-10.2) mg/dL Total Bilirubin (0.0-1.0) mg/dL AST (5-31) U/L ALT (0-31) U/L Alkaline Phosphatase (39-117) U/L Troponin I High Sens (<3.5-17.0) ng/L Total Protein (6.5-8.0) g/dL Albumin (3.5-5.0) g/dL Lipase (8-78) U/L Beta-Hydroxybutyrate (0.02-0.27) mmol/L Beta HCG, Quant mIU/mL Urine Color Urine Appearance Urine pH (5.0-9.0) Ur Specific [place] Pos (1.005-1.025) Urine Protein (Neg-Trace) mg/dL Urine Glucose (UA) (Negative) mg/dL Urine Ketones (Negative) mg/dL Urine Blood (Negative) Urine Nitrite (Negative) Ur Leukocyte Esterase (Negative) Urine RBC (0-2) /HPF Urine WBC (0-5) /HPF Ur Squamous Epith Cells (0-2) /HPF Urine Bacteria (None Seen) Hyaline Casts (0-2) /LPF Urine Test (NEGATIVE) Influenza Type A (PCR) (Negative) Influenza Type B (PCR) (Negative) RSV RNA Qual (PCR) (Negative) SARS-CoV-2 RNA (RT-PCR) (Negative) Independent Interpretation I performed an independent interpretation of an: EKG (Normal sinus rhythm) Independent Historian Clinical information obtained from an independent historian. History obtained from or confirmed by: Other (patient) External Record Review External record reviewed: Other (prior visits) Prescription Management I considered prescription management with: Other (meforming) Discharge Plan Discharge Clinical Impression: Hyperglycemia due to type 2 diabetes mellitus Patient Disposition: Home, Self-Care Instructions: Diabetic Hyperglycemia (ED) Additional Instructions: Recommend follow-up with primary care provider. You will be prescribed another prescription of metformin. Return to ED for any abdominal pain, nausea, vomiting, flank pain, fever, chills, chest pain, shortness of breath, weakness, dizziness, or any other concerning symptoms. Prescriptions: New metformin 500 mg tablet 500 mg PO BID 30 Days Qty: 60 0RF No Action cephalexin 250 mg capsule 250 mg PO QID 7 Days Qty: 28 0RF acetaminophen [Tylenol Extra Strength] 500 mg tablet 500 mg PO Q6H PRN (Reason: pain) Qty: 30 0RF metformin 500 mg tablet 500 mg PO BID Qty: 60 0RF naproxen 500 mg tablet 500 mg PO BID PRN (Reason: pain) 7 Days Qty: 14 0RF cephalexin 500 mg capsule 500 mg PO QID Qty: 27 0RF doxycycline hyclate 100 mg capsule 100 mg PO BID Qty: 13 0RF Referrals: [facility] [place] [facility] [Provider Group] (Diabetes management) [facility] [place] [facility] [Provider Group] (Diabetes management) Stand Alone Forms: Work/School Release Interventions: ED Discharge Assessment Last Done: 06/11/24 20:57 Discharge Date/Time: 06/11/24 20:59 Print Language: Juan Parnell
[2024-06-11 16:18] LABS: MANUAL DIFF FLAG NO
[2024-06-11 16:21] LABS: Basophils Percent Auto 0.4 % (0-2); Eosinophils Percent Auto 0.4 % (0-4); Hematocrit 40.6 % (37.0-47.0); Hemoglobin 14.2 g/dl (12.0-16.0); Imm Gran Abs Auto 0.02 X10*3/uL (0.00-0.03); Imm Gran Pct Auto 0.2 % (0.0-0.4); Lymphocytes Absolute Auto 3.4 X10*3/uL (1.2-4.9); Lymphocytes Percent Auto 41.1 % (20-40); Mean Corpuscular Hemoglobin 29.3 pg (27.0-33.0); Mean Corpuscular Volume 83.7 fL (80.0-98.0); Mean Platelet Volume 9.6 fL (9.4-12.3); Monocytes Absolute Auto 0.4 X10*3/uL (0.1-1.2); Monocytes Percent Auto 5.1 % (2-11); Neutrophils Absolute Auto 4.4 x10*3/uL (2.0-8.3); Neutrophils Percent Auto 52.8 % (45-73); Platelet Count 296 X10*3/uL (160-400); Red Blood Count 4.85 X10*6/uL (4.20-5.50); Red Cell Distribution Width 11.9 % (11.0-16.0); White Blood Count 8.2 X10*3/uL (4.8-10.8)
[2024-06-11 16:27] LABS: INTERNATIONAL NORM RATIO 0.9 (0.9-1.1); Prothrombin Time 10.4 SEC (10.9-12.4)
[2024-06-11 16:29] LABS: Partial Thromboplastin Time 26.1 SEC (26.0-36.8)
[2024-06-11 16:36] LABS: Beta-Hydroxybutyrate 0.15 mmol/L (0.02-0.27)
[2024-06-11 16:39] LABS: Lipase 28 U/L (8-78)
[2024-06-11 16:41] LABS: Alanine Aminotransferase 39 U/L (0-31); Albumin Level 3.9 g/dL (3.5-5.0); Alkaline Phosphatase 102 U/L (39-117); Anion Gap 12 (12-20); Aspartate Amino Transferase 27 U/L (5-31); Bilirubin Total 0.4 mg/dL (0.0-1.0); Blood Urea Nitrogen 10 mg/dL (9-16); Calcium 9.8 mg/dL (8.4-10.2); Carbon Dioxide 24 mmol/L (22-29); Chloride 101 mmol/L (96-108); Creatinine Clr Calc Pharmacy 86.6; Estimated Glomerular Filt Rate > 60; Glucose Random 413 mg/dL (60-115); Potassium 4.5 mmol/L (3.3-5.1); Sodium 132 mmol/L (135-145); Total Protein 7.5 g/dL (6.5-8.0)
[2024-06-11 16:43] LABS: HCG Quantitative < 2 mIU/mL; Troponin-I High Sensitivity < 2.7 ng/L (<3.5-17.0)
--- NOTE | 2024-06-11 16:43 | MHC.EDTECH ---
EKG completed at triage. Handed to provider Dr. Hein
[2024-06-11 17:15] LABS: Influenza A PCR NEGATIVE (Negative); Influenza B PCR NEGATIVE (Negative); Resp Syncy Virus RNA Qual PCR NEGATIVE (Negative); SARS COV2 PCR INHOUSE NEGATIVE (Negative)
[2024-06-11 17:18] VITALS: BP 116/71; PULSE 64; RESP 18; TEMP 36.8; O2SAT 97
[2024-06-11] MEDS: 0.9 % Sodium Chloride 1,000 ML 999 ML IV ×2 (17:21→17:22)
[2024-06-11 17:30] LABS: Glucose, Whole Blood 342 mg/dL (60-115)
[2024-06-11 17:33] LABS: Appearance Urine Clear; Color Urine Yellow; Glucose Urine UA >=1000 mg/dL (Negative); Leukocyte Esterase Urine Negative (Negative); Nitrite Urine Negative (Negative); PH 5.5 (5.0-9.0); Specific Gravity - Urine >= 1.030 (1.005-1.025); UMIC TRIGGER UACC YES; Urine Blood Negative (Negative); Urine Ketones Negative (Negative); Urine Protein Negative (Neg-Trace)
[2024-06-11 17:35] LABS: UPreg QC Valid YES; Urine Pregnancy NEGATIVE (NEGATIVE)
[2024-06-11 17:38] LABS: Bacteria Urine None Seen (None Seen); Hyaline Casts Urine 0-2 /LPF (0-2); RBC Urine 0-2 /HPF (0-2); Squamous Epithelial Cell Urine 0-2 /HPF (0-2); WBC Urine 0-5 /HPF (0-5)
[2024-06-11 18:31] VITALS: BP 106/60; PULSE 88; RESP 18; TEMP 36.8; O2SAT 98
--- NOTE | 2024-06-11 18:40 | PC.NURSE ---
From home with complaints of weakness and high blood sugar. States was here a few weeks ago with high blood sugars and was given medication that she has since run out of. 20g ultrasound guided IV placed and fluids given per SEP. Patient speaks Carlos carvajal used for interpretation
[2024-06-11] MEDS: Insulin Regular, Human 100 UNIT/ML 10 ML VIAL IVPUSH (19:01)
[2024-06-11 19:16] LABS: Glucose, Whole Blood 384 mg/dL (60-115)
[2024-06-11 19:35] LABS: Troponin-I High Sensitivity < 2.7 ng/L (<3.5-17.0)
[2024-06-11 19:38] VITALS: BP 118/76; PULSE 65; RESP 16; TEMP 36.8; O2SAT 100
[2024-06-11 19:44] LABS: Glucose, Whole Blood 353 mg/dL (60-115)
[2024-06-11 19:44] LABS: Glucose, Whole Blood 309 mg/dL (60-115)
--- NOTE | 2024-06-11 20:17 | PC.NURSE ---
this rn assumed care of pt, pt a&ox4, respirations even and unlabored. pt denies pain at this time. vss.
[2024-06-11 20:37] LABS: Glucose, Whole Blood 289 mg/dL (60-115)
[2024-06-11 20:57] VITALS: BP 116/70; PULSE 65; RESP 16; TEMP 36.9; O2SAT 100
== END 2024-06-11 20:59 | disposition home or self-care (01) ==
PROVIDERS: Physician Assistant; Emergency Provider Emergency Medicine
DX: E11.65 Type 2 diabetes mellitus with hyperglycemia (principal); R53.83 Other fatigue; R10.13 Epigastric pain; R11.0 Nausea; Z79.899 Other long term (current) drug therapy; Z03.818 Encounter for observation for suspected exposure to other biological agents ruled out
CPT/HCPCS: 0241U; 36415; 80053; 81001; 81025; 82010; 82947; 83690; 84484; 84702; 85025; 85610; 85730; 93005; 96361; 96374; 99285

== ENCOUNTER → 2024-06-11 15:57 | Outpatient (BNV) | payer OTHER, SELFPAY | PROVIDERS: Emergency Provider Emergency Medicine; Visit Provider Internal Medicine Cardiovascular Disease | DX: R10.13 Epigastric pain (principal) | CPT/HCPCS: 93010 ==

== ENCOUNTER 2024-07-29 05:34 | Emergency (ER) | payer OTHER, SELFPAY ==
--- NOTE | ~2024-07-29 | XR_ITS ---
CLINICAL HISTORY: pain on inspiration 2 view chest x-ray. Comparison: None Findings: The lungs are adequately expanded. No focal confluent opacity. No effusion or pneumothorax. Cardiac and mediastinal contours are within normal limits. No acute osseous abnormality Impression: No acute process. This document has been electronically signed by: Virgil Henderson MD on 07/29/2024 07:05:34
[2024-07-29 05:40] VITALS: BP 114/78; PULSE 73; RESP 18; TEMP 36.4; O2SAT 99; BMI 31.5
[2024-07-29 06:35] LABS: Influenza A PCR NEGATIVE (Negative); Influenza B PCR NEGATIVE (Negative); Resp Syncy Virus RNA Qual PCR NEGATIVE (Negative); SARS COV2 PCR INHOUSE NEGATIVE (Negative)
--- NOTE | 2024-07-29 09:22 | ED_ITS ---
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 States the pain has been constant, worsening yesterday. Pain is worse with deep breathing. No radiation. Pain is currently a 6/10. 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 Denies any injury/trauma to the area. Denies hx of similar. States she was recently taken off of her hormonal control, which she was taking for 1 year. No recent travel or long car rides. No recent surgery. Related Data Previous Rx's ?Medication ?Instructions ?Recorded naproxen 500 mg tablet 500 mg PO BID PRN pain 7 days #14 10/28/23 tabs acetaminophen 500 mg tablet 500 mg PO Q6H PRN pain #30 tabs 11/04/23 (Tylenol Extra Strength) cephalexin 250 mg capsule 250 mg PO QID 7 days #28 caps 11/04/23 metformin 500 mg tablet 500 mg PO BID #60 tabs 03/09/24 cephalexin 500 mg capsule 500 mg PO QID #27 caps 04/16/24 doxycycline hyclate 100 mg capsule 100 mg PO BID #13 caps 04/16/24 metformin 500 mg tablet 500 mg PO BID 30 days #60 tabs 06/11/24 ibuprofen 600 mg tablet 600 mg PO Q6-8H PRN pain (scale 07/29/24 score 4-6) #30 tabs Allergies Allergy/AdvReac Type Severity Reaction Status Date / Time No Known Allergies Allergy Verified 07/29/24 05:48 Review of Systems 2 Review of Systems: Yes all other systems are reviewed and are negative PMFSH Past Medical History Attestation statement: The following information was validated with the patient. Source: old records reviewed and nursing notes reviewed Medical History Abscess of shoulder Social History Social History Alcohol intake: former Patient Tobacco Use Status: Never used Tobacco Physical Exam ED Vital Signs: Vital Signs - 24 hr 07/29/24 05:40 Temperature 97.6 F Pulse Rate 73 Respiratory Rate 18 Blood Pressure 114/78 Pulse Oximetry 99 Oxygen Delivery Method Room Air BMI result Body Mass Index 31.5 vital signs stable, afebrile, not hypoxic or tachycardic. General: Well appearing, in no acute distress. Skin: Warm, dry, intact. No rashes or lesions. Head: Normocephalic, atraumatic. EENT: Hearing is intact b/l. Conjunctiva clear. PERRLA. EOM intact. Moist mucous membranes.? Neck: Supple without LAD Cardiac: Chest wall symmetric. RRR. +reproducible ttp along left lower anterolateral ribs. no palpable deformity/ crepitus. Lungs: Normal respiratory effort without accessory muscle use. CTA bilaterally.? Abdomen: Soft, non-tender, non-distended. No rebound tenderness or guarding. Positive BS x4. Ext: Upper and lower extremities atraumatic, without tenderness, deformity, swelling or erythema. Full ROM throughout. no calf tenderness. Neuro: AOx3. Normal speech. Ambulating with steady gait. Psych: Appropriate mood and affect. Responds appropriately to questions. Course Course Course Narrative: 1050 -- negative for COVID, flu, RSV. Chest x-ray without infiltrate or consolidation. CBC without leukocytosis or left shift. No anemia. H&H stable. D-dimer undetectable. PE unlikely. CTA chest not warranted at this time. Chemistry without acute electrolyte abnormality requiring intervention. Random glucose 402 without gap. beta hydroxybutarate mildly elevated to 0.35 - I have extremely low suspicion for DKA given presentation/ lack of symptoms. No OSVALDO. Liver function at baseline. Troponin undetectable. EKG showing normal sinus rhythm with a rate of 65 beats per minute, no acute ischemic changes or ST elevations. Given time from symptom onset to ED presentation, delta troponin not warranted at this time. ACS unlikely. Beta quant undetectable. Not . > given elevated glucose and history of type 2 diabetes, insulin and fluids ordered. Will re-evaluate. > patient has left-sided rib pain is likely musculoskeletal. It was reassuring that pain is reproducible with palpation of the area. No suspicion for rib fracture as there has been no injury to the chest. Plan to treat with NSAIDs. Toradol ordered. 1234 -- POC improved to 246. patient feeling well and would like to be discharged home which I feel is reasonable. Patient has remained stable throughout ED visit today. Discussed worrisome signs and symptoms and when to return to the ED. All questions answered at this time. Patient is agreeable with disposition and stable for discharge. Medications Administered Discontinued Medications Generic Name Dose Route Start Last Admin Trade Name Shannon PRN Reason Stop Dose Admin Sodium Chloride 1,000 mls @ 999 mls/hr 07/29/24 11:00 07/29/24 12:30 Ns IV 07/29/24 12:00 Infused .Q1H1M JANETT Infusion Sodium Chloride 1,000 mls @ 999 mls/hr 07/29/24 11:00 07/29/24 12:30 Ns IV 07/29/24 12:00 Infused .Q1H1M JANETT Infusion Insulin Human Regular 5 unit 07/29/24 10:48 07/29/24 11:20 Insulin Regular, Human 100 Unit/Ml 10 Ml Vial IVPUSH 07/29/24 10:49 5 unit ONCE ONE Administration Ketorolac Tromethamine 15 mg 07/29/24 10:48 07/29/24 11:21 Ketorolac Tromethamine 15 Mg/Ml Vial IVPUSH 07/29/24 10:49 15 mg ONCE ONE Administration Medical Decision Making Medical Decision Making [facility] Narrative: 34 year old Israeli Creole speaking female presents to the ED today for evaluation of left lower rib pain x5 days. VSS. she is nontoxic appearing and in NAD. exam significant for reproducible ttp along left lower anterolateral ribs. no palpable deformity/ crepitus. lungs clear. Differential diagnosis includes viral syndrome, bronchitis, pneumonia, costochondritis, pleuritis, ACS, arrhythmia, rib contusion, rib fracture, pneumothorax, pleural effusion, pulmonary embolism, constipation. unlikely flail chest. plan for labs, ekg, imaging, pain control, re-evaluation. Differential Diagnosis Differential Diagnoses: The differential diagnosis associated with the presentation includes as above. Admission/Observation not indicated. Lab Data [facility] Lab Attestation statement: I reviewed the patient's lab results. as above. 07/29/24 09:51 07/29/24 09:51 Labs: Lab Results 07/29/24 07/29/24 07/29/24 Range/Units 05:52 09:51 11:21 WBC 6.3 (4.8-10.8) X10*3/uL RBC 4.87 (4.20-5.50) X10*6/uL Hgb 14.3 (12.0-16.0) g/dl Hct 40.6 (37.0-47.0) % MCV 83.4 (80.0-98.0) fL MCH 29.4 (27.0-33.0) pg MCHC 35.2 H (31.0-35.0) g/dl RDW 11.7 (11.0-16.0) % Plt Count 286 (160-400) X10*3/uL MPV 9.6 (9.4-12.3) fL Immature Gran % (Auto) 0.3 (0.0-0.4) % Neut % (Auto) 54.9 (45-73) % Lymph % (Auto) 38.0 (20-40) % Ware % (Auto) 5.9 (2-11) % Eos % (Auto) 0.6 (0-4) % Baso % (Auto) 0.3 (0-2) % Lymph # (Auto) 2.4 (1.2-4.9) X10*3/uL Ware # (Auto) 0.4 (0.1-1.2) X10*3/uL Eos # (Auto) 0.0 (0.0-0.4) X10*3/uL Baso # (Auto) 0.0 (0.0-0.2) X10*3/uL Abs Immat Gran (auto) 0.02 (0.00-0.03) X10*3/uL Absolute Neuts (auto) 3.4 (2.0-8.3) x10*3/uL Absolute Nucleated RBC 0.000 (0.0-0.012) X10*3/uL Nucleated RBC % (auto) 0.0 (0.0-0.2) /100WBC D-Dimer High Sensitivty < 150 NG/ML VBG pH 7.46 H (7.32-7.43) VBG pCO2 36 mmHg VBG pO2 108 mmHg VBG HCO3 26 (22-26) mmol/L VBG O2 Saturation 99.0 % VBG Base Excess 2.4 mmol/L Sodium 135 (135-145) mmol/L Potassium 4.4 (3.3-5.1) mmol/L Chloride 102 (96-108) mmol/L Carbon Dioxide 26 (22-29) mmol/L Anion Gap 11 L (12-20) BUN 9 (9-16) mg/dL Creatinine 0.84 (0.5-1.4) mg/dL Estim Creat Clear Calc 86.0 Estimated GFR > 60 POC Glucose (60-115) mg/dL Random Glucose 402 H* (60-115) mg/dL Calcium 9.2 D (8.4-10.2) mg/dL Magnesium 1.8 (1.6-2.6) mg/dL Total Bilirubin 0.4 (0.0-1.0) mg/dL AST 27 (5-31) U/L ALT 35 H (0-31) U/L Alkaline Phosphatase 115 (39-117) U/L Troponin I High Sens < 2.7 (<3.5-17.0) ng/L Total Protein 7.6 (6.5-8.0) g/dL Albumin 3.8 (3.5-5.0) g/dL Lipase 28 (8-78) U/L Beta-Hydroxybutyrate 0.35 H (0.02-0.27) mmol/L Beta HCG, Quant < 2 mIU/mL Influenza Type A (PCR) NEGATIVE (Negative) Influenza Type B (PCR) NEGATIVE (Negative) RSV RNA Qual (PCR) NEGATIVE (Negative) SARS-CoV-2 RNA (RT-PCR) NEGATIVE (Negative) 07/29/24 Range/Units 12:34 WBC (4.8-10.8) X10*3/uL RBC (4.20-5.50) X10*6/uL Hgb (12.0-16.0) g/dl Hct (37.0-47.0) % MCV (80.0-98.0) fL MCH (27.0-33.0) pg MCHC (31.0-35.0) g/dl RDW (11.0-16.0) % Plt Count (160-400) X10*3/uL MPV (9.4-12.3) fL Immature Gran % (Auto) (0.0-0.4) % Neut % (Auto) (45-73) % Lymph % (Auto) (20-40) % Ware % (Auto) (2-11) % Eos % (Auto) (0-4) % Baso % (Auto) (0-2) % Lymph # (Auto) (1.2-4.9) X10*3/uL Ware # (Auto) (0.1-1.2) X10*3/uL Eos # (Auto) (0.0-0.4) X10*3/uL Baso # (Auto) (0.0-0.2) X10*3/uL Abs Immat Gran (auto) (0.00-0.03) X10*3/uL Absolute Neuts (auto) (2.0-8.3) x10*3/uL Absolute Nucleated RBC (0.0-0.012) X10*3/uL Nucleated RBC % (auto) (0.0-0.2) /100WBC D-Dimer High Sensitivty NG/ML VBG pH (7.32-7.43) VBG pCO2 mmHg VBG pO2 mmHg VBG HCO3 (22-26) mmol/L VBG O2 Saturation % VBG Base Excess mmol/L Sodium (135-145) mmol/L Potassium (3.3-5.1) mmol/L Chloride (96-108) mmol/L Carbon Dioxide (22-29) mmol/L Anion Gap (12-20) BUN (9-16) mg/dL Creatinine (0.5-1.4) mg/dL Estim Creat Clear Calc Estimated GFR POC Glucose 246 H (60-115) mg/dL Random Glucose (60-115) mg/dL Calcium (8.4-10.2) mg/dL Magnesium (1.6-2.6) mg/dL Total Bilirubin (0.0-1.0) mg/dL AST (5-31) U/L ALT (0-31) U/L Alkaline Phosphatase (39-117) U/L Troponin I High Sens (<3.5-17.0) ng/L Total Protein (6.5-8.0) g/dL Albumin (3.5-5.0) g/dL Lipase (8-78) U/L Beta-Hydroxybutyrate (0.02-0.27) mmol/L Beta HCG, Quant mIU/mL Influenza Type A (PCR) (Negative) Influenza Type B (PCR) (Negative) RSV RNA Qual (PCR) (Negative) SARS-CoV-2 RNA (RT-PCR) (Negative) Independent Interpretation I performed an independent interpretation of an: EKG and Plain X-Ray Interpretation: CXR without infiltrate or consolidation, no rib fracture Radiology Impression Discussion of test interpretation with radiology: I have reviewed the radiologist's reading. Radiologist Impression: Ordering Physician: Generic ED Physician Date of Service: 07/29/24 Procedure(s): XR chest 2V Accession Number(s): [id number] cc: Generic ED Physician; Physician,Unknown ~ CLINICAL HISTORY: pain on inspiration 2 view chest x-ray. Comparison: None Findings: The lungs are adequately expanded. No focal confluent opacity. No effusion or pneumothorax. Cardiac and mediastinal contours are within normal limits. No acute osseous abnormality Impression: No acute process. This document has been electronically signed by: Virgil Henderson MD on 07/29/2024 07:05:34 External Record Review External record reviewed: Inpatient record Prescription Management I considered prescription management with: Pain Medication Chronic Conditions Patient?s care impacted by: Diabetes Social Determinants Patient?s care significantly limited by Social Determinants of Health including: Other Social Determinant of Health Critical Care Time Critical Care Time Critical Care Time: No Discharge Plan Discharge Clinical Impression: Atypical chest pain, Hyperglycemia due to type 2 diabetes mellitus Patient Disposition: Home, Self-Care Instructions: Noncardiac Chest Pain (ED) Additional Instructions: You were evaluated in the Emergency Department today for chest pain. Your evaluation has shown no signs of medical conditions requiring emergent intervention at this time. Your blood sugar was elevated and you were treated appropriately. Continue metformin as prescribed at home. Check your blood sugar often. Regarding your pain, I recommend you take 600 mg ibuprofen every 6 hours as needed. I recommend that you follow up with your primary care provider. If you do not have one, a referral has been provided. Please call them to make an appointment, they will not call you. Return to the Emergency Department if you experience worsening or uncontrolled chest pain, shortness of breath, light headedness, feeling faint, nausea, vomiting, or any other concerning symptoms. Prescriptions: New ibuprofen 600 mg tablet 600 mg PO Q6-8H PRN (Reason: pain (scale score 4-6)) Qty: 30 0RF No Action cephalexin 250 mg capsule 250 mg PO QID 7 Days Qty: 28 0RF acetaminophen [Tylenol Extra Strength] 500 mg tablet 500 mg PO Q6H PRN (Reason: pain) Qty: 30 0RF metformin 500 mg tablet 500 mg PO BID Qty: 60 0RF naproxen 500 mg tablet 500 mg PO BID PRN (Reason: pain) 7 Days Qty: 14 0RF cephalexin 500 mg capsule 500 mg PO QID Qty: 27 0RF doxycycline hyclate 100 mg capsule 100 mg PO BID Qty: 13 0RF metformin 500 mg tablet 500 mg PO BID 30 Days Qty: 60 0RF Referrals: [facility] Family Medicine [Provider Group] [facility] Primary Care[facility] [Provider Group] [facility] Primary Care,[facility] [Provider Group] Interventions: ED Discharge Assessment Last Done: 07/29/24 13:42 Discharge Date/Time: 07/29/24 13:43 Print Language: Juan Parnell
--- NOTE | 2024-07-29 09:36 | ECG_ITS ---
Test Reason : PLEURITIC CHEST PAIN Blood Pressure : / mmHG Vent. Rate : 065 BPM Atrial Rate : 065 BPM P-R Int : 152 ms QRS Dur : 084 ms QT Int : 414 ms P-R-T Axes : 045 055 015 degrees QTc Int : 430 ms Normal sinus rhythm Normal ECG When compared with ECG of 11-JUN-2024 15:57, No significant change was found Referred By: Elsa Trent Electronically Signed By:YOANDY FIELDS MD
[2024-07-29 09:59] LABS: MANUAL DIFF FLAG NO
[2024-07-29 10:08] LABS: Basophils Percent Auto 0.3 % (0-2); Eosinophils Percent Auto 0.6 % (0-4); Hematocrit 40.6 % (37.0-47.0); Hemoglobin 14.3 g/dl (12.0-16.0); Imm Gran Abs Auto 0.02 X10*3/uL (0.00-0.03); Imm Gran Pct Auto 0.3 % (0.0-0.4); Lymphocytes Absolute Auto 2.4 X10*3/uL (1.2-4.9); Mean Corpuscular HGB Conc 35.2 g/dl (31.0-35.0); Mean Corpuscular Hemoglobin 29.4 pg (27.0-33.0); Mean Corpuscular Volume 83.4 fL (80.0-98.0); Mean Platelet Volume 9.6 fL (9.4-12.3); Monocytes Absolute Auto 0.4 X10*3/uL (0.1-1.2); Monocytes Percent Auto 5.9 % (2-11); Neutrophils Absolute Auto 3.4 x10*3/uL (2.0-8.3); Neutrophils Percent Auto 54.9 % (45-73); Platelet Count 286 X10*3/uL (160-400); Red Blood Count 4.87 X10*6/uL (4.20-5.50); Red Cell Distribution Width 11.7 % (11.0-16.0); White Blood Count 6.3 X10*3/uL (4.8-10.8)
--- NOTE | 2024-07-29 10:11 | PC.NURSE ---
labs drawn/ekg performed
[2024-07-29 10:16] LABS: D Dimer High Sensitivity < 150 NG/ML
[2024-07-29 10:34] LABS: Lipase 28 U/L (8-78); Magnesium 1.8 mg/dL (1.6-2.6)
[2024-07-29 10:36] LABS: Alanine Aminotransferase 35 U/L (0-31); Albumin Level 3.8 g/dL (3.5-5.0); Alkaline Phosphatase 115 U/L (39-117); Anion Gap 11 (12-20); Aspartate Amino Transferase 27 U/L (5-31); Bilirubin Total 0.4 mg/dL (0.0-1.0); Blood Urea Nitrogen 9 mg/dL (9-16); Calcium 9.2 mg/dL (8.4-10.2); Carbon Dioxide 26 mmol/L (22-29); Chloride 102 mmol/L (96-108); Estimated Glomerular Filt Rate > 60; Potassium 4.4 mmol/L (3.3-5.1); Sodium 135 mmol/L (135-145); Total Protein 7.6 g/dL (6.5-8.0)
[2024-07-29 10:38] LABS: Glucose Random 402 mg/dL (60-115)
[2024-07-29 10:40] VITALS: BP 118/72; PULSE 72; RESP 18; TEMP 36.7; O2SAT 99
[2024-07-29 10:41] LABS: HCG Quantitative < 2 mIU/mL; Troponin-I High Sensitivity < 2.7 ng/L (<3.5-17.0)
[2024-07-29] MEDS: Insulin Regular, Human 100 UNIT/ML 10 ML VIAL IVPUSH (11:20)
[2024-07-29 11:21] LABS: Beta-Hydroxybutyrate 0.35 mmol/L (0.02-0.27)
[2024-07-29] MEDS: Ketorolac Tromethamine 15 MG/ML VIAL IVPUSH (11:21)
[2024-07-29] MEDS: 0.9 % Sodium Chloride 1,000 ML 999 ML IV ×2 (11:23)
[2024-07-29 11:24] LABS: Venous Blood Gas Refer to POC result
[2024-07-29 11:26] LABS: VBG Base Excess 2.4 mmol/L; VBG HCO3 26 mmol/L (22-26); VBG pCO2 36 mmHg; VBG pH 7.46 (7.32-7.43); VBG pO2 108 mmHg
--- NOTE | 2024-07-29 11:27 | PC.NURSE ---
iv inserted, additional lab drawn, pt given insulin, pain medication for 8/10 pain and IVF running per order, will continue plan of care
[2024-07-29 12:38] LABS: Glucose, Whole Blood 246 mg/dL (60-115)
[2024-07-29 13:42] VITALS: BP 111/70; PULSE 73; RESP 16; TEMP 36.7; O2SAT 100
== END 2024-07-29 13:43 | disposition home or self-care (01) ==
PROVIDERS: Physician Assistant Medical; Emergency Provider Emergency Medicine
DX: R07.89 Other chest pain (principal); R10.2 Pelvic and perineal pain; E11.65 Type 2 diabetes mellitus with hyperglycemia; R11.2 Nausea with vomiting, unspecified; Z79.4 Long term (current) use of insulin; Z79.899 Other long term (current) drug therapy; Z03.818 Encounter for observation for suspected exposure to other biological agents ruled out; Z79.84 Long term (current) use of oral hypoglycemic drugs
CPT/HCPCS: 0241U; 36415; 71046; 80053; 82010; 82803; 82947; 83690; 83735; 84484; 84702; 85025; 85379; 93005; 96361; 96374; 96375; 99284; J1885

== ENCOUNTER → 2024-07-29 05:55 | Outpatient (BNV) | payer OTHER, SELFPAY | PROVIDERS: Visit Provider Radiology Vascular & Interventional Radiology | DX: R06.00 Dyspnea, unspecified (principal) | CPT/HCPCS: 71046 ==

== ENCOUNTER → 2024-07-29 09:36 | Outpatient (BNV) | payer OTHER, SELFPAY | PROVIDERS: Emergency Provider Emergency Medicine; Visit Provider Internal Medicine Cardiovascular Disease | DX: R07.9 Chest pain, unspecified (principal) | CPT/HCPCS: 93010 ==

== ENCOUNTER 2024-09-21 10:32 | Emergency (ER) | payer OTHER, SELFPAY ==
--- NOTE | ~2024-09-21 | US_ITS ---
CLINICAL HISTORY: Confirm IUP US OB 1st trimester transvaginal. Comparison: None Findings: Single intrauterine . CRL: N/A cm. Single gestational sac within the uterine fundus measuring 1.1 cm in diameter corresponds to a gestational age of 5 weeks 5 days. Yolk sac is present. No pole observed. Normal yolk sac . Cardiac activity: None identified. No subchorionic bleed. Ovaries are within normal limits. IMPRESSION: Early intrauterine with an estimated gestational age of 5 weeks 5 days. No pole is seen likely due to early . Short-term follow-up with serial beta HCG is recommended. This document has been electronically signed by: Tyrell Alfred MD on 09/21/2024 22:54:49
[2024-09-21 10:57] VITALS: BP 100/66; PULSE 73; RESP 18; TEMP 36.8; O2SAT 100; BMI 27.6
--- NOTE | 2024-09-21 11:04 | ED.GENADULT ---
HPI - General Adult General Chief complaint: General Medical Stated complaint: diabetic? weakness Time Seen by Provider: 09/21/24 14:29 History of Present Illness HPI narrative: Creole speaking patient, history through [employer], complains of feeling weak and fatigued She is a recently diagnosed diabetic who was taking metformin twice a day, but ran out 2 days ago She has no primary care physician and is concerned that her sugar has gone up The only complaint is feeling fatigued, she has no headache no confusion no difficulty forming words no weakness on either side of the body no muscle weakness no chest pain no shortness of breath no abdominal pain no stiff neck no fever no chills no dysuria no abdominal pain no nausea or vomiting, only symptom is feeling fatigued Related Data Previous Rx's ?Medication ?Instructions ?Recorded naproxen 500 mg tablet 500 mg PO BID PRN pain 7 days #14 10/28/23 tabs acetaminophen 500 mg tablet 500 mg PO Q6H PRN pain #30 tabs 11/04/23 (Tylenol Extra Strength) cephalexin 250 mg capsule 250 mg PO QID 7 days #28 caps 11/04/23 metformin 500 mg tablet 500 mg PO BID #60 tabs 03/09/24 cephalexin 500 mg capsule 500 mg PO QID #27 caps 04/16/24 doxycycline hyclate 100 mg capsule 100 mg PO BID #13 caps 04/16/24 metformin 500 mg tablet 500 mg PO BID 30 days #60 tabs 06/11/24 ibuprofen 600 mg tablet 600 mg PO Q6-8H PRN pain (scale 07/29/24 score 4-6) #30 tabs metformin 500 mg tablet 500 mg PO BID #60 tabs 09/21/24 vit no.95-ferrous 1 tab PO DAILY #60 tabs 09/21/24 fumarate 28 mg-folic acid 800 mcg tablet ( Multivitamins) Allergies Allergy/AdvReac Type Severity Reaction Status Date / Time No Known Allergies Allergy Verified 09/21/24 10:59 [facility] Past Medical History Source: nursing notes reviewed Medical History Abscess of shoulder Social History Social History Alcohol intake: never Patient Tobacco Use Status: Never used Tobacco Smoked in Last 30 Days: No Use of substances other than those prescribed or required for medical reasons: No Any prior treatment program specific to substance use: No Advance Directives: No Advance Directives Information Provided: No Do you have a plan to hurt others: No Plan Patient : Yes Physical Exam ED Vital Signs: Vital Signs - 24 hr 09/21/24 10:57 09/21/24 14:55 09/21/24 18:30 Temperature 98.2 F 97.8 F Pulse Rate 73 73 67 Respiratory Rate 18 17 18 Blood Pressure 100/66 119/73 118/75 Pulse Oximetry 100 100 100 Oxygen Delivery Method Room Air Room Air 09/21/24 22:36 Temperature 98.5 F Pulse Rate 66 Respiratory Rate 16 Blood Pressure 112/64 Pulse Oximetry 100 Oxygen Delivery Method Room Air BMI result Body Mass Index 27.6 General appearance is no acute distress Head is normocephalic atraumatic Pupils equal round reactive to light extraocular motions are intact The pharynx is clear no redness swelling or exudate The neck is supple The chest is clear to auscultation bilateral with full symmetric equal breath sounds Heart no murmur Abdomen soft nontender Extremities full range of motion x4, no edema no calf swelling or tenderness Skin no rash Neuro no focal deficits, interaction comprehension and expression are normal, gait and balance are normal, motor is 5/5 x4, cerebellar exam [id number] is normal, cranial nerves 2-12 intact as tested Course Course Course Narrative: This is an RME performed by Alejandro Zuniga CNP: Additional HPI, ROS, PE not included below will be deferred to primary provider. Patient is a 34-year-old female who presents emergency department for evaluation of generalized weakness since yesterday progressively worsening. Reports newly diagnosed diabetic, on oral antihyperglycemics, does not have ability to check blood sugars at home, without additional complaints Plan: Serum labs, urinalysis, viral serologies Patient with glucose of 520, lab work was negative for DKA, pH is 7.4, vital signs are normal, no fever no hypoxia no tachycardia CBC no white count or anemia Venous blood gas the pH is 7.4, pCO2 is 39, bicarb is 24 Chemistry had a pH of 132, potassium normal, anion gap normal, creatinine normal, glucose 520 Patient with hyperglycemia, ran out of her medication, can not check glucose at home and has no primary doctor Will treat with insulin and a L of fluids After treatment with IV fluids and 5 of insulin the sugar is now 305 Urine test came back positive beta hCG was 7658 Case was discussed with loop drier operator consult Dr. Roblero who felt that this patient with no primary doctor no engineering psychologist does not speak Indian has sugar out of control and is is at very high risk and needs quick action to help get her sugar under control and he advised see if [facility] was willing to take her as a transfer, or if they can get her into their system quickly I spoke to loop drier operator resident at [facility] who said they could not admit this early in , I spoke to hospitalist here at [facility] who said for sugars that low meaning 300 without DKA there is no medical admission at the hospital, discussed with the attending physician Dr. de leon who advised tried to obtain close follow-up from [facility] at [facility], otherwise she would be discharged to find a primary doctor and wait for care Resident at [facility] also requested that we get an ultrasound to confirm intrauterine At 19:00 case is signed out to physician loan officer assistant Kimberly Caballero to follow ultrasound results and dispo patient Reevaluation(s) Reevaluation #1: I Nichelle Caballero PA-C have accepted care of the patient and signed out pending ultrasound for confirmation and discharge. Obstetric ultrasound:Findings: Single intrauterine . CRL: N/A cm. Single gestational sac within the uterine fundus measuring 1.1 cm in diameter corresponds to a gestational age of 5 weeks 5 days. Yolk sac is present. No pole observed. Normal yolk sac . Cardiac activity: None identified. No subchorionic bleed. Ovaries are within normal limits. IMPRESSION: Early intrauterine with an estimated gestational age of 5 weeks 5 days. No pole is seen likely due to early . Short-term follow-up with serial beta HCG is recommended. This document has been electronically signed by: Tyrell Alfred MD on 09/21/2024 22:54:49 Medications Administered Discontinued Medications Generic Name Dose Route Start Last Admin Trade Name Freq PRN Reason Stop Dose Admin Sodium Chloride 1,000 mls @ 999 mls/hr 09/21/24 15:00 09/21/24 17:13 Ns IVCONT 09/21/24 16:00 Infused .Q1H1M JANETT Infusion Insulin Human Regular 5 unit 09/21/24 15:01 09/21/24 15:39 Insulin Regular, Human 100 Unit/Ml 10 Ml Vial IVPUSH 09/21/24 15:02 5 unit ONCE ONE Administration Medical Decision Making Lab Data MDM Lab Attestation statement: I reviewed the patient's lab results. 09/21/24 11:10 09/21/24 11:10 Labs: Lab Results 09/21/24 09/21/24 09/21/24 Range/Units 11:10 11:15 15:25 WBC 7.3 (4.8-10.8) X10*3/uL RBC 4.55 (4.20-5.50) X10*6/uL Hgb 13.8 (12.0-16.0) g/dl Hct 38.2 (37.0-47.0) % MCV 84.0 (80.0-98.0) fL MCH 30.3 (27.0-33.0) pg MCHC 36.1 H (31.0-35.0) g/dl RDW 11.9 (11.0-16.0) % Plt Count 263 (160-400) X10*3/uL MPV 9.2 L (9.4-12.3) fL Immature Gran % (Auto) 0.4 (0.0-0.4) % Neut % (Auto) 55.8 (45-73) % Lymph % (Auto) 37.9 (20-40) % Childress % (Auto) 5.1 (2-11) % Eos % (Auto) 0.5 (0-4) % Baso % (Auto) 0.3 (0-2) % Lymph # (Auto) 2.8 (1.2-4.9) X10*3/uL Childress # (Auto) 0.4 (0.1-1.2) X10*3/uL Eos # (Auto) 0.0 (0.0-0.4) X10*3/uL Baso # (Auto) 0.0 (0.0-0.2) X10*3/uL Abs Immat Gran (auto) 0.03 (0.00-0.03) X10*3/uL Absolute Neuts (auto) 4.1 (2.0-8.3) x10*3/uL Absolute Nucleated RBC 0.000 (0.0-0.012) X10*3/uL Nucleated RBC % (auto) 0.0 (0.0-0.2) /100WBC VBG pH 7.40 (7.32-7.43) VBG pCO2 39 mmHg VBG pO2 45 mmHg VBG HCO3 24 (22-26) mmol/L VBG O2 Saturation 73.0 % VBG Base Excess -0.2 mmol/L Sodium 132 L (135-145) mmol/L Potassium 4.2 (3.3-5.1) mmol/L Chloride 102 (96-108) mmol/L Carbon Dioxide 21 L (22-29) mmol/L Anion Gap 13 (12-20) BUN 6 L (9-16) mg/dL Creatinine 0.94 (0.5-1.4) mg/dL Estim Creat Clear Calc 83.2 Estimated GFR > 60 POC Glucose 409 H* (60-115) mg/dL Random Glucose 520 H* (60-115) mg/dL Calcium 9.1 (8.4-10.2) mg/dL Magnesium 1.9 (1.6-2.6) mg/dL Total Bilirubin 0.5 (0.0-1.0) mg/dL AST 20 (5-31) U/L ALT 24 (0-31) U/L Alkaline Phosphatase 91 (39-117) U/L Total Protein 7.4 (6.5-8.0) g/dL Albumin 3.6 (3.5-5.0) g/dL Lipase 39 (8-78) U/L Beta-Hydroxybutyrate 0.12 (0.02-0.27) mmol/L Beta HCG, Quant 7658 mIU/mL Urine Color Urine Appearance Urine pH (5.0-9.0) Ur Specific Cisco (1.005-1.025) Urine Protein (Neg-Trace) mg/dL Urine Glucose (UA) (Negative) mg/dL Urine Ketones (Negative) mg/dL Urine Blood (Negative) Urine Nitrite (Negative) Ur Leukocyte Esterase (Negative) Urine RBC (0-2) /HPF Urine WBC (0-5) /HPF Ur Squamous Epith Cells (0-2) /HPF Urine Bacteria (None Seen) Hyaline Casts (0-2) /LPF Urine Test (NEGATIVE) Influenza Type A (PCR) NEGATIVE (Negative) Influenza Type B (PCR) NEGATIVE (Negative) RSV RNA Qual (PCR) NEGATIVE (Negative) SARS-CoV-2 RNA (RT-PCR) NEGATIVE (Negative) 09/21/24 09/21/24 09/21/24 Range/Units 16:55 17:02 22:57 WBC (4.8-10.8) X10*3/uL RBC (4.20-5.50) X10*6/uL Hgb (12.0-16.0) g/dl Hct (37.0-47.0) % MCV (80.0-98.0) fL MCH (27.0-33.0) pg MCHC (31.0-35.0) g/dl RDW (11.0-16.0) % Plt Count (160-400) X10*3/uL MPV (9.4-12.3) fL Immature Gran % (Auto) (0.0-0.4) % Neut % (Auto) (45-73) % Lymph % (Auto) (20-40) % Childress % (Auto) (2-11) % Eos % (Auto) (0-4) % Baso % (Auto) (0-2) % Lymph # (Auto) (1.2-4.9) X10*3/uL Childress # (Auto) (0.1-1.2) X10*3/uL Eos # (Auto) (0.0-0.4) X10*3/uL Baso # (Auto) (0.0-0.2) X10*3/uL Abs Immat Gran (auto) (0.00-0.03) X10*3/uL Absolute Neuts (auto) (2.0-8.3) x10*3/uL Absolute Nucleated RBC (0.0-0.012) X10*3/uL Nucleated RBC % (auto) (0.0-0.2) /100WBC VBG pH (7.32-7.43) VBG pCO2 mmHg VBG pO2 mmHg VBG HCO3 (22-26) mmol/L VBG O2 Saturation % VBG Base Excess mmol/L Sodium (135-145) mmol/L Potassium (3.3-5.1) mmol/L Chloride (96-108) mmol/L Carbon Dioxide (22-29) mmol/L Anion Gap (12-20) BUN (9-16) mg/dL Creatinine (0.5-1.4) mg/dL Estim Creat Clear Calc Estimated GFR POC Glucose 305 H 289 H (60-115) mg/dL Random Glucose (60-115) mg/dL Calcium (8.4-10.2) mg/dL Magnesium (1.6-2.6) mg/dL Total Bilirubin (0.0-1.0) mg/dL AST (5-31) U/L ALT (0-31) U/L Alkaline Phosphatase (39-117) U/L Total Protein (6.5-8.0) g/dL Albumin (3.5-5.0) g/dL Lipase (8-78) U/L Beta-Hydroxybutyrate (0.02-0.27) mmol/L Beta HCG, Quant mIU/mL Urine Color Yellow Urine Appearance Clear Urine pH 7.0 (5.0-9.0) Ur Specific Cisco >= 1.030 H (1.005-1.025) Urine Protein Negative (Neg-Trace) mg/dL Urine Glucose (UA) >=1000 H (Negative) mg/dL Urine Ketones Negative (Negative) mg/dL Urine Blood Negative (Negative) Urine Nitrite Negative (Negative) Ur Leukocyte Esterase Trace H (Negative) Urine RBC 0-2 (0-2) /HPF Urine WBC 11-20 H (0-5) /HPF Ur Squamous Epith Cells 0-2 (0-2) /HPF Urine Bacteria None Seen (None Seen) Hyaline Casts 0-2 (0-2) /LPF Urine Test POSITIVE H (NEGATIVE) Influenza Type A (PCR) (Negative) Influenza Type B (PCR) (Negative) RSV RNA Qual (PCR) (Negative) SARS-CoV-2 RNA (RT-PCR) (Negative) Discharge Plan Discharge Clinical Impression: Hyperglycemia, and not yet delivered in first trimester Patient Disposition: Home, Self-Care Instructions: Diabetic Hyperglycemia (ED), First Trimester (ED), Diabetes and Nutrition (ED), Type 2 Diabetes in Adults: New Diagnosis (ED), What to Do if Your Blood Sugar is Low (ED) Additional Instructions: You are currently approximately 5 weeks , this is a very early . We have provided you with a contact to establish care, you need to call tomorrow to make an appointment. You will require additional labs and imaging within the next 5 weeks. I am starting you on vitamins, take them daily. You need to manage your diabetes appropriately, take the metformin as directed. You need to follow a diabetic diet. If you do not manage your diabetes appropriately, you could harm yourself and your . You need to follow up with your primary care provider in regard to further diabetes management. I have provided you with a month's worth of your diabetes medication. [phone] [facility] The obstetric ultrasound result as listed below. IMPRESSION: Early intrauterine with an estimated gestational age of 5 weeks 5 days. No pole is seen likely due to early . Short-term follow-up with serial beta HCG is recommended. Prescriptions: New PNV cmb#95-ferrous fumarate-FA [ Multivitamins] 28 mg iron- 800 mcg tablet 1 tab PO DAILY Qty: 60 0RF metformin 500 mg tablet 500 mg PO BID Qty: 60 0RF No Action cephalexin 250 mg capsule 250 mg PO QID 7 Days Qty: 28 0RF acetaminophen [Tylenol Extra Strength] 500 mg tablet 500 mg PO Q6H PRN (Reason: pain) Qty: 30 0RF metformin 500 mg tablet 500 mg PO BID Qty: 60 0RF naproxen 500 mg tablet 500 mg PO BID PRN (Reason: pain) 7 Days Qty: 14 0RF cephalexin 500 mg capsule 500 mg PO QID Qty: 27 0RF doxycycline hyclate 100 mg capsule 100 mg PO BID Qty: 13 0RF metformin 500 mg tablet 500 mg PO BID 30 Days Qty: 60 0RF ibuprofen 600 mg tablet 600 mg PO Q6-8H PRN (Reason: pain (scale score 4-6)) Qty: 30 0RF Print Language: Guatemalandaniela Parnell
[2024-09-21 11:15] LABS: MANUAL DIFF FLAG NO
[2024-09-21 11:16] LABS: Basophils Percent Auto 0.3 % (0-2); Eosinophils Percent Auto 0.5 % (0-4); Hematocrit 38.2 % (37.0-47.0); Hemoglobin 13.8 g/dl (12.0-16.0); Imm Gran Abs Auto 0.03 X10*3/uL (0.00-0.03); Imm Gran Pct Auto 0.4 % (0.0-0.4); Lymphocytes Absolute Auto 2.8 X10*3/uL (1.2-4.9); Lymphocytes Percent Auto 37.9 % (20-40); Mean Corpuscular HGB Conc 36.1 g/dl (31.0-35.0); Mean Corpuscular Hemoglobin 30.3 pg (27.0-33.0); Mean Platelet Volume 9.2 fL (9.4-12.3); Monocytes Absolute Auto 0.4 X10*3/uL (0.1-1.2); Monocytes Percent Auto 5.1 % (2-11); Neutrophils Absolute Auto 4.1 x10*3/uL (2.0-8.3); Neutrophils Percent Auto 55.8 % (45-73); Platelet Count 263 X10*3/uL (160-400); Red Blood Count 4.55 X10*6/uL (4.20-5.50); Red Cell Distribution Width 11.9 % (11.0-16.0); White Blood Count 7.3 X10*3/uL (4.8-10.8)
[2024-09-21 11:19] LABS: VBG Base Excess -0.2 mmol/L; VBG HCO3 24 mmol/L (22-26); VBG pCO2 39 mmHg; VBG pO2 45 mmHg
[2024-09-21 11:20] LABS: Venous Blood Gas Refer to POC result
[2024-09-21 11:36] LABS: Beta-Hydroxybutyrate 0.12 mmol/L (0.02-0.27)
[2024-09-21 11:38] LABS: Alanine Aminotransferase 24 U/L (0-31); Albumin Level 3.6 g/dL (3.5-5.0); Alkaline Phosphatase 91 U/L (39-117); Anion Gap 13 (12-20); Aspartate Amino Transferase 20 U/L (5-31); Bilirubin Total 0.5 mg/dL (0.0-1.0); Blood Urea Nitrogen 6 mg/dL (9-16); Calcium 9.1 mg/dL (8.4-10.2); Carbon Dioxide 21 mmol/L (22-29); Chloride 102 mmol/L (96-108); Creatinine Clr Calc Pharmacy 83.2; Estimated Glomerular Filt Rate > 60; Glucose Random 520 mg/dL (60-115); Lipase 39 U/L (8-78); Magnesium 1.9 mg/dL (1.6-2.6); Potassium 4.2 mmol/L (3.3-5.1); Sodium 132 mmol/L (135-145); Total Protein 7.4 g/dL (6.5-8.0)
[2024-09-21 11:52] LABS: Influenza A PCR NEGATIVE (Negative); Influenza B PCR NEGATIVE (Negative); Resp Syncy Virus RNA Qual PCR NEGATIVE (Negative); SARS COV2 PCR INHOUSE NEGATIVE (Negative)
[2024-09-21 14:55] VITALS: BP 119/73; PULSE 73; RESP 17; O2SAT 100
[2024-09-21] MEDS: 0.9 % Sodium Chloride 1,000 ML 999 ML IVCONT (15:18)
[2024-09-21 15:29] LABS: Glucose, Whole Blood 409 mg/dL (60-115)
[2024-09-21] MEDS: Insulin Regular, Human 100 UNIT/ML 10 ML VIAL IVPUSH (15:39)
[2024-09-21 17:05] LABS: Appearance Urine Clear; Color Urine Yellow; Glucose Urine UA >=1000 mg/dL (Negative); Leukocyte Esterase Urine Trace (Negative); Nitrite Urine Negative (Negative); Specific Gravity - Urine >= 1.030 (1.005-1.025); UMIC TRIGGER UACC YES; Urine Blood Negative (Negative); Urine Ketones Negative (Negative); Urine Protein Negative (Neg-Trace)
[2024-09-21 17:06] LABS: Glucose, Whole Blood 305 mg/dL (60-115)
[2024-09-21 17:07] LABS: UPreg QC Valid YES; Urine Pregnancy POSITIVE (NEGATIVE)
[2024-09-21 17:52] LABS: Bacteria Urine None Seen (None Seen); Hyaline Casts Urine 0-2 /LPF (0-2); RBC Urine 0-2 /HPF (0-2); Squamous Epithelial Cell Urine 0-2 /HPF (0-2); UACC Culture Trigger YES
[2024-09-21 17:56] LABS: HCG Quantitative 7658 mIU/mL
[2024-09-21 18:30] VITALS: BP 118/75; PULSE 67; RESP 18; TEMP 36.6; O2SAT 100
--- NOTE | 2024-09-21 18:39 | PM.OBCN ---
OB Consult Note - [facility] Data Service Date: 09/21/24 Primary Care Provider: None Physician Narrative I was consulted on Rosemarie Tee is a 34 year old female who is recently in early , no PCP and no care the patient is recently diagnosed with diabetes was on metformin and stopped it 2 days ago because she ran out of it presenting to the emergency room with fatigue. No abdominal or pelvic cramping or pain come no vaginal bleeding, no nausea or vomiting Urine test was positive, hCG On arrival to emergency room blood sugar was 520, dropped to 409 in the on 09/01/2004 after the patient received 5 units of insulin , H&H within normal, pH within normal UA positive for leukocyte esterase and glucose OB [facility] Past Medical History Medical History Abscess of shoulder Social History Social History Alcohol intake: former Patient Tobacco Use Status: Never used Tobacco Smoked in Last 30 Days: No Use of substances other than those prescribed or required for medical reasons: No Advance Directives: No Advance Directives Information Provided: No Do you have a plan to hurt others: No Plan Meds Allergies Allergy/AdvReac Type Severity Reaction Status Date / Time No Known Allergies Allergy Verified 09/21/24 10:59 OB Consult Results Labs 09/21/24 11:10 09/21/24 11:10 Labs: Short CBC 09/21/24 Range/Units 11:10 WBC 7.3 (4.8-10.8) X10*3/uL Hgb 13.8 (12.0-16.0) g/dl Hct 38.2 (37.0-47.0) % Plt Count 263 (160-400) X10*3/uL BMP 09/21/24 11:10 Sodium 132 L Potassium 4.2 Chloride 102 Carbon Dioxide 21 L BUN 6 L Creatinine 0.94 Calcium 9.1 Liver Function 09/21/24 Range/Units 11:10 Total Bilirubin 0.5 (0.0-1.0) mg/dL AST 20 (5-31) U/L ALT 24 (0-31) U/L Alkaline Phosphatase 91 (39-117) U/L Albumin 3.6 (3.5-5.0) g/dL Urine 09/21/24 Range/Units 16:55 Urine Color Yellow Urine Appearance Clear Urine pH 7.0 (5.0-9.0) Ur Specific Albers >= 1.030 H (1.005-1.025) Urine Protein Negative (Neg-Trace) mg/dL Urine Glucose (UA) >=1000 H (Negative) mg/dL Urine Test POSITIVE H (NEGATIVE) OB - CN: A/P Assessment and Plan (1) Diabetes in : Status: Acute Assessment and Plan: Recommended the following to VANESSA Koehler in the emergency room: Ob ultrasound to document IUP and rule out ectopic . Given the patient's high elevated blood sugar with history of uncontrolled pre gestational diabetes, I recommended MFM consult [facility] for management of blood sugar; since MFM Service is not available at [facility], and available maternity service, recommended transfer to [facility] for blood sugar control/management/MFM consult , since elevated blood sugar in early can cause congenital anomalies, increase in the risk of SAB and other complications of . vitamin tablet p.o. q.d. I spent a total of 20 minutes reviewing the chart, documenting in the medical record and communicating with the emergency room provider Time Spent With Patient Time: Total time managing care of this patient today ____ minutes.
[2024-09-21 22:36] VITALS: BP 112/64; PULSE 66; RESP 16; TEMP 36.9; O2SAT 100
--- NOTE | 2024-09-21 22:48 | PC.NURSE ---
pt denies pain but is hungry. pt talking on her phone needs met at bedside.
[2024-09-21 23:00] LABS: Glucose, Whole Blood 289 mg/dL (60-115)
[2024-09-21 23:53] VITALS: BP 112/64; PULSE 66; RESP 16; TEMP 36.9; O2SAT 100
== END 2024-09-21 23:53 | disposition home or self-care (01) ==
PROVIDERS: Nurse Practitioner Family; Physician Assistant Medical; Emergency Provider Emergency Medicine
DX: O24.911 Unspecified diabetes mellitus in pregnancy, first trimester (principal); R53.83 Other fatigue; E11.65 Type 2 diabetes mellitus with hyperglycemia; R10.2 Pelvic and perineal pain; R11.0 Nausea; Z79.899 Other long term (current) drug therapy; Z79.84 Long term (current) use of oral hypoglycemic drugs; Z03.818 Encounter for observation for suspected exposure to other biological agents ruled out
CPT/HCPCS: 0241U; 76801; 76817; 80053; 81001; 81003; 81025; 82010; 82803; 82947; 83690; 83735; 84702; 85025; 87086; 87147; 96361; 96374; 99284

== ENCOUNTER → 2024-09-21 14:06 | Outpatient (BNV) | payer OTHER, SELFPAY | PROVIDERS: Emergency Provider Emergency Medicine; Visit Provider Obstetrics & Gynecology | DX: O24.919 Unspecified diabetes mellitus in pregnancy, unspecified trimester (principal) | CPT/HCPCS: 99283 ==

== ENCOUNTER 2024-09-25 18:14 | Emergency (ER) | payer OTHER, SELFPAY ==
[2024-09-25 18:23] VITALS: BP 120/69; PULSE 79; RESP 20; TEMP 36.3; O2SAT 100; BMI 30.4
--- NOTE | 2024-09-25 18:30 | ED.GENADULT ---
HPI - General Adult General Chief complaint: General Medical Stated complaint: Headache, vaginal bleeding Time Seen by Provider: 09/25/24 19:26 Source: patient Mode of arrival: ambulatory Limitations: no limitations History of Present Illness ED Provider: Connor GUTIERREZ narrative: 34-year-old female with past medical history of housing instability, diabetes and currently 1 month presenting for 1 day of weakness. Patient states that she woke up this morning feeling fatigued and weak in her legs. She denies head pain, neck pain, chest pain, abdominal pain, nausea, vomiting, urinary symptoms, vaginal bleed. Patient was recently seen here for similar symptoms. Patient states that she has taken her metformin. Patient has not yet followed up with performance improvement consultant Related Data Previous Rx's ?Medication ?Instructions ?Recorded naproxen 500 mg tablet 500 mg PO BID PRN pain 7 days #14 10/28/23 tabs acetaminophen 500 mg tablet 500 mg PO Q6H PRN pain #30 tabs 11/04/23 (Tylenol Extra Strength) cephalexin 250 mg capsule 250 mg PO QID 7 days #28 caps 11/04/23 metformin 500 mg tablet 500 mg PO BID #60 tabs 03/09/24 cephalexin 500 mg capsule 500 mg PO QID #27 caps 04/16/24 doxycycline hyclate 100 mg capsule 100 mg PO BID #13 caps 04/16/24 metformin 500 mg tablet 500 mg PO BID 30 days #60 tabs 06/11/24 ibuprofen 600 mg tablet 600 mg PO Q6-8H PRN pain (scale 07/29/24 score 4-6) #30 tabs metformin 500 mg tablet 500 mg PO BID #60 tabs 09/21/24 vit no.95-ferrous 1 tab PO DAILY #60 tabs 09/21/24 fumarate 28 mg-folic acid 800 mcg tablet ( Multivitamins) amoxicillin 875 mg tablet 875 mg PO Q12H 5 days #10 tabs 09/26/24 Allergies Allergy/AdvReac Type Severity Reaction Status Date / Time No Known Allergies Allergy Verified 09/25/24 18:26 Review of Systems Review of Systems: Yes all other systems are reviewed and are negative PMF Past Medical History Medical History Abscess of shoulder Social History Social History Alcohol intake: never Patient Tobacco Use Status: Never used Tobacco Smoked in Last 30 Days: No Use of substances other than those prescribed or required for medical reasons: No Advance Directives: No Advance Directives Information Provided: Yes Do you have a plan to hurt others: No Plan Patient : Yes Physical Exam ED Vital Signs: Vital Signs - 24 hr 09/25/24 18:23 09/25/24 23:06 09/26/24 02:02 Temperature 97.3 F 98.4 F 98.5 F Pulse Rate 79 68 77 Respiratory Rate 20 18 16 Blood Pressure 120/69 110/70 111/73 Pulse Oximetry 100 99 98 Oxygen Delivery Method Room Air Room Air Room Air BMI result Body Mass Index 30.4 Well-appearing female in no acute distress A&O x4; normal speech and cognition; stress and sensation equal in bilateral upper and lower extremities Lungs clear to auscultation bilaterally Normal S1-S2 regular rate and rhythm Abdomen is soft nontender nondistended Course Course Course Narrative: RME: 31-year-old female 1 month presents to ED for weakness discharged as lethargy and fatigue. Patient denies any chest pain, shortness of breath, abdominal pain, vaginal bleeding, vaginal discharge. Patient is a new diabetic on metformin. Glucose POC 400. Charge nurse made aware to bring patient to the back. Labs ordered. Medications Administered Discontinued Medications Generic Name Dose Route Start Last Admin Trade Name Freq PRN Reason Stop Dose Admin Amoxicillin 1,000 mg 09/26/24 01:58 09/26/24 02:02 Amoxicillin 500 Mg Capsule PO 09/26/24 01:59 1,000 mg ONCE ONE Administration Sodium Chloride 1,000 mls @ 999 mls/hr 09/25/24 18:32 09/25/24 21:00 Ns IV 09/25/24 19:32 Infused .Q1H1M STA Infusion Sodium Chloride 1,000 mls @ 999 mls/hr 09/25/24 18:33 09/26/24 00:10 Ns IV 09/25/24 19:33 Infused .Q1H1M STA Infusion Insulin Human Regular 5 unit 09/25/24 19:36 09/25/24 21:23 Insulin Regular, Human 100 Unit/Ml 10 Ml Vial IVPUSH 09/25/24 19:37 5 unit ONCE ONE Administration Medical Decision Making Medical Decision Making MDM Narrative: 34-year-old female presenting for weakness -I am concerned for the following; uncontrolled diabetes, electrolyte/metabolic disturbance, UTI, viral URI, COVID, flu -labs, fluids, insulin ordered Lab interpretation: -normal white count, stable H&H, hyperglycemic to 400, electrolytes within normal limits, normal anion gap -normal blood gas -hCG appropriately rising -UA with WBCs and leukocyte; I reviewed patient's micro from 09/21 and she is growing strep agalactiae Patient had confirmed IUP on 09/21 Given positive group B strep in urine in and risk this poses to baby I will treat pt with amoxicillin. Dose given here and script sent to her pharmacy On reassessment patient reports improvement of symptoms. I had at length discussion with her regarding appropriate outpatient follow up and the importance of managing her diabetes during . Explained that she has been in her baby at risk for complications if her diabetes remains uncontrolled. 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 Pt was already Lab Data 09/25/24 18:48 09/25/24 18:48 Labs: Lab Results 09/25/24 09/25/24 09/25/24 Range/Units 18:31 18:48 19:56 WBC 7.3 (4.8-10.8) X10*3/uL RBC 4.64 (4.20-5.50) X10*6/uL Hgb 13.9 (12.0-16.0) g/dl Hct 39.6 (37.0-47.0) % MCV 85.3 (80.0-98.0) fL MCH 30.0 (27.0-33.0) pg MCHC 35.1 H (31.0-35.0) g/dl RDW 11.9 (11.0-16.0) % Plt Count 294 (160-400) X10*3/uL MPV 9.0 L (9.4-12.3) fL Immature Gran % (Auto) 0.3 (0.0-0.4) % Neut % (Auto) 53.2 (45-73) % Lymph % (Auto) 39.6 (20-40) % [place] % (Auto) 5.9 (2-11) % Eos % (Auto) 0.7 (0-4) % Baso % (Auto) 0.3 (0-2) % Lymph # (Auto) 2.9 (1.2-4.9) X10*3/uL [place] # (Auto) 0.4 (0.1-1.2) X10*3/uL Eos # (Auto) 0.1 (0.0-0.4) X10*3/uL Baso # (Auto) 0.0 (0.0-0.2) X10*3/uL Abs Immat Gran (auto) 0.02 (0.00-0.03) X10*3/uL Absolute Neuts (auto) 3.9 (2.0-8.3) x10*3/uL Absolute Nucleated RBC 0.000 (0.0-0.012) X10*3/uL Nucleated RBC % (auto) 0.0 (0.0-0.2) /100WBC PT 11.1 (10.9-12.4) SEC INR 1.0 (0.9-1.1) APTT 26.8 (26.0-36.8) SEC VBG pH (7.32-7.43) VBG pCO2 mmHg VBG pO2 mmHg VBG HCO3 (22-26) mmol/L VBG O2 Saturation % VBG Base Excess mmol/L Sodium 134 L (135-145) mmol/L Potassium 4.1 (3.3-5.1) mmol/L Chloride 102 (96-108) mmol/L Carbon Dioxide 25 (22-29) mmol/L Anion Gap 11 L (12-20) BUN 7 L (9-16) mg/dL Creatinine 0.88 (0.5-1.4) mg/dL Estim Creat Clear Calc 83.0 Estimated GFR > 60 POC Glucose 400 H* (60-115) mg/dL Random Glucose 383 H* (60-115) mg/dL Calcium 9.4 (8.4-10.2) mg/dL Total Bilirubin 0.4 0.4 (0.0-1.0) mg/dL Direct Bilirubin 0.2 (0.0-0.5) mg/dL AST 19 17 (5-31) U/L ALT 23 20 (0-31) U/L Alkaline Phosphatase 88 78 (39-117) U/L Total Protein 7.6 6.7 (6.5-8.0) g/dL Albumin 3.8 3.4 L (3.5-5.0) g/dL Lipase 35 (8-78) U/L Beta-Hydroxybutyrate 0.11 (0.02-0.27) mmol/L Beta HCG, Quant 56067 mIU/mL Urine Color Urine Appearance Urine pH (5.0-9.0) Ur Specific [place] (1.005-1.025) Urine Protein (Neg-Trace) mg/dL Urine Glucose (UA) (Negative) mg/dL Urine Ketones (Negative) mg/dL Urine Blood (Negative) Urine Nitrite (Negative) Ur Leukocyte Esterase (Negative) Urine RBC (0-2) /HPF Urine WBC (0-5) /HPF Ur Squamous Epith Cells (0-2) /HPF Urine Bacteria (None Seen) Hyaline Casts (0-2) /LPF Urine Test (NEGATIVE) Blood Type B Positive 09/25/24 09/25/24 09/26/24 Range/Units 23:05 23:13 00:30 WBC (4.8-10.8) X10*3/uL RBC (4.20-5.50) X10*6/uL Hgb (12.0-16.0) g/dl Hct (37.0-47.0) % MCV (80.0-98.0) fL MCH (27.0-33.0) pg MCHC (31.0-35.0) g/dl RDW (11.0-16.0) % Plt Count (160-400) X10*3/uL MPV (9.4-12.3) fL Immature Gran % (Auto) (0.0-0.4) % Neut % (Auto) (45-73) % Lymph % (Auto) (20-40) % [place] % (Auto) (2-11) % Eos % (Auto) (0-4) % Baso % (Auto) (0-2) % Lymph # (Auto) (1.2-4.9) X10*3/uL [place] # (Auto) (0.1-1.2) X10*3/uL Eos # (Auto) (0.0-0.4) X10*3/uL Baso # (Auto) (0.0-0.2) X10*3/uL Abs Immat Gran (auto) (0.00-0.03) X10*3/uL Absolute Neuts (auto) (2.0-8.3) x10*3/uL Absolute Nucleated RBC (0.0-0.012) X10*3/uL Nucleated RBC % (auto) (0.0-0.2) /100WBC PT (10.9-12.4) SEC INR (0.9-1.1) APTT (26.0-36.8) SEC VBG pH 7.34 (7.32-7.43) VBG pCO2 41 mmHg VBG pO2 35 mmHg VBG HCO3 23 (22-26) mmol/L VBG O2 Saturation 53.0 % VBG Base Excess -2.4 mmol/L Sodium (135-145) mmol/L Potassium (3.3-5.1) mmol/L Chloride (96-108) mmol/L Carbon Dioxide (22-29) mmol/L Anion Gap (12-20) BUN (9-16) mg/dL Creatinine (0.5-1.4) mg/dL Estim Creat Clear Calc Estimated GFR POC Glucose 212 H (60-115) mg/dL Random Glucose (60-115) mg/dL Calcium (8.4-10.2) mg/dL Total Bilirubin (0.0-1.0) mg/dL Direct Bilirubin (0.0-0.5) mg/dL AST (5-31) U/L ALT (0-31) U/L Alkaline Phosphatase (39-117) U/L Total Protein (6.5-8.0) g/dL Albumin (3.5-5.0) g/dL Lipase (8-78) U/L Beta-Hydroxybutyrate 0.13 (0.02-0.27) mmol/L Beta HCG, Quant mIU/mL Urine Color Yellow Urine Appearance Clear Urine pH 5.5 (5.0-9.0) Ur Specific [place] >= 1.030 H (1.005-1.025) Urine Protein Negative (Neg-Trace) mg/dL Urine Glucose (UA) >=1000 H (Negative) mg/dL Urine Ketones Negative (Negative) mg/dL Urine Blood Trace H (Negative) Urine Nitrite Negative (Negative) Ur Leukocyte Esterase Small (1+) H (Negative) Urine RBC 0-2 (0-2) /HPF Urine WBC 11-20 H (0-5) /HPF Ur Squamous Epith Cells 3-5 (0-2) /HPF Urine Bacteria None Seen (None Seen) Hyaline Casts 0-2 (0-2) /LPF Urine Test POSITIVE H (NEGATIVE) Blood Type Discharge Plan Discharge Clinical Impression: Diabetes in Qualifiers: Diabetes in type: unspecified Trimester: first trimester Qualified Code(s): O24.911 - Unspecified diabetes mellitus in , first trimester Patient Disposition: Home, Self-Care Additional Instructions: Li enp?tom ke ou swiv ak yon obstetrisyen epi dokt? prensipal ou a tiffany dyab?t ou. Si sik ou rete palacios kontw?l, w ap mete tibebe w la an danje K?manse pran antibyotik ki te voye nan famasi ou Prescriptions: New amoxicillin 875 mg tablet 875 mg PO Q12H 5 Days Qty: 10 0RF No Action cephalexin 250 mg capsule 250 mg PO QID 7 Days Qty: 28 0RF acetaminophen [Tylenol Extra Strength] 500 mg tablet 500 mg PO Q6H PRN (Reason: pain) Qty: 30 0RF metformin 500 mg tablet 500 mg PO BID Qty: 60 0RF naproxen 500 mg tablet 500 mg PO BID PRN (Reason: pain) 7 Days Qty: 14 0RF cephalexin 500 mg capsule 500 mg PO QID Qty: 27 0RF doxycycline hyclate 100 mg capsule 100 mg PO BID Qty: 13 0RF metformin 500 mg tablet 500 mg PO BID 30 Days Qty: 60 0RF ibuprofen 600 mg tablet 600 mg PO Q6-8H PRN (Reason: pain (scale score 4-6)) Qty: 30 0RF PNV cmb#95-ferrous fumarate-FA [ Multivitamins] 28 mg iron- 800 mcg tablet 1 tab PO DAILY Qty: 60 0RF metformin 500 mg tablet 500 mg PO BID Qty: 60 0RF Referrals: Carlos Roblero MD [Physician] - 1 week ( with diabetes) Interventions: ED Discharge Assessment Last Done: 09/26/24 02:02 Discharge Date/Time: 02/28/25 02:38 Print Language: [place] Creole
[2024-09-25 18:35] LABS: Glucose, Whole Blood 400 mg/dL (60-115)
[2024-09-25 18:53] LABS: MANUAL DIFF FLAG NO
[2024-09-25 18:54] LABS: Basophils Percent Auto 0.3 % (0-2); Eosinophils Absolute Auto 0.1 X10*3/uL (0.0-0.4); Eosinophils Percent Auto 0.7 % (0-4); Hematocrit 39.6 % (37.0-47.0); Hemoglobin 13.9 g/dl (12.0-16.0); Imm Gran Abs Auto 0.02 X10*3/uL (0.00-0.03); Imm Gran Pct Auto 0.3 % (0.0-0.4); Lymphocytes Absolute Auto 2.9 X10*3/uL (1.2-4.9); Lymphocytes Percent Auto 39.6 % (20-40); Mean Corpuscular HGB Conc 35.1 g/dl (31.0-35.0); Mean Corpuscular Volume 85.3 fL (80.0-98.0); Monocytes Absolute Auto 0.4 X10*3/uL (0.1-1.2); Monocytes Percent Auto 5.9 % (2-11); Neutrophils Absolute Auto 3.9 x10*3/uL (2.0-8.3); Neutrophils Percent Auto 53.2 % (45-73); Platelet Count 294 X10*3/uL (160-400); Red Blood Count 4.64 X10*6/uL (4.20-5.50); Red Cell Distribution Width 11.9 % (11.0-16.0); White Blood Count 7.3 X10*3/uL (4.8-10.8)
[2024-09-25 19:01] LABS: Prothrombin Time 11.1 SEC (10.9-12.4)
[2024-09-25 19:03] LABS: Partial Thromboplastin Time 26.8 SEC (26.0-36.8)
[2024-09-25 19:08] LABS: Beta-Hydroxybutyrate 0.11 mmol/L (0.02-0.27)
[2024-09-25 19:34] LABS: Alanine Aminotransferase 23 U/L (0-31); Albumin Level 3.8 g/dL (3.5-5.0); Alkaline Phosphatase 88 U/L (39-117); Anion Gap 11 (12-20); Aspartate Amino Transferase 19 U/L (5-31); Bilirubin Total 0.4 mg/dL (0.0-1.0); Blood Urea Nitrogen 7 mg/dL (9-16); Calcium 9.4 mg/dL (8.4-10.2); Carbon Dioxide 25 mmol/L (22-29); Chloride 102 mmol/L (96-108); Estimated Glomerular Filt Rate > 60; Glucose Random 383 mg/dL (60-115); Lipase 35 U/L (8-78); Potassium 4.1 mmol/L (3.3-5.1); Sodium 134 mmol/L (135-145); Total Protein 7.6 g/dL (6.5-8.0)
[2024-09-25] MEDS: 0.9 % Sodium Chloride 1,000 ML 999 ML IV ×2 (19:35→22:50)
[2024-09-25 20:09] LABS: HCG Quantitative 22317 mIU/mL
[2024-09-25 20:18] LABS: Alanine Aminotransferase 20 U/L (0-31); Albumin Level 3.4 g/dL (3.5-5.0); Alkaline Phosphatase 78 U/L (39-117); Aspartate Amino Transferase 17 U/L (5-31); Bilirubin Direct 0.2 mg/dL (0.0-0.5); Bilirubin Total 0.4 mg/dL (0.0-1.0); Total Protein 6.7 g/dL (6.5-8.0)
[2024-09-25] MEDS: Insulin Regular, Human 100 UNIT/ML 10 ML VIAL IVPUSH (21:23)
--- NOTE | 2024-09-25 21:25 | PC.NURSE ---
medicated per sep, notified RADHA Landrum
--- NOTE | 2024-09-25 22:43 | PC.NURSE ---
said to run second liter previously ordered
[2024-09-25 23:06] VITALS: BP 110/70; PULSE 68; RESP 18; TEMP 36.9; O2SAT 99
[2024-09-25 23:17] LABS: Appearance Urine Clear; Color Urine Yellow; Glucose Urine UA >=1000 mg/dL (Negative); Leukocyte Esterase Urine Small (1+) (Negative); Nitrite Urine Negative (Negative); PH 5.5 (5.0-9.0); Specific Gravity - Urine >= 1.030 (1.005-1.025); UMIC TRIGGER UACC YES; Urine Blood Trace (Negative); Urine Ketones Negative (Negative); Urine Protein Negative (Neg-Trace)
[2024-09-25 23:17] LABS: VBG Base Excess -2.4 mmol/L; VBG HCO3 23 mmol/L (22-26); VBG pCO2 41 mmHg; VBG pH 7.34 (7.32-7.43); VBG pO2 35 mmHg
[2024-09-25 23:19] LABS: Venous Blood Gas Refer to POC result
[2024-09-25 23:21] LABS: UPreg QC Valid YES; Urine Pregnancy POSITIVE (NEGATIVE)
[2024-09-25 23:22] LABS: Bacteria Urine None Seen (None Seen); Hyaline Casts Urine 0-2 /LPF (0-2); RBC Urine 0-2 /HPF (0-2); UACC Culture Trigger YES
[2024-09-26 00:22] LABS: Beta-Hydroxybutyrate 0.13 mmol/L (0.02-0.27)
[2024-09-26 00:35] LABS: Glucose, Whole Blood 212 mg/dL (60-115)
[2024-09-26 02:02] VITALS: BP 111/73; PULSE 77; RESP 16; TEMP 36.9; O2SAT 98
[2024-09-26] MEDS: Amoxicillin 500 MG CAPSULE 1000 MG PO (02:02)
--- NOTE | 2024-09-26 02:36 | PC.NURSE ---
arranged [facility] home for patient. White sonata #[id number]
--- NOTE | 2024-09-26 02:38 | PC.NURSE ---
[employer]come eduardo used for sao tomean creole interpretation.
== END 2024-09-26 02:38 | disposition home or self-care (01) ==
PROVIDERS: Physician Assistant; Emergency Provider Student in an Organized Health Care Education/Training Program
DX: O24.911 Unspecified diabetes mellitus in pregnancy, first trimester (principal); Z3A.01 Less than 8 weeks gestation of pregnancy
CPT/HCPCS: 36415; 80053; 80076; 81001; 81025; 82010; 82803; 82947; 83690; 84702; 85025; 85610; 85730; 86900; 86901; 87086; 87147; 96361; 96374; 99284

== ENCOUNTER 2024-10-06 17:07 | Emergency (ER) | payer OTHER, SELFPAY ==
[2024-10-06 17:20] VITALS: BP 125/74; PULSE 75; RESP 19; TEMP 37.1; O2SAT 98; BMI 28.6
--- NOTE | 2024-10-06 17:22 | ECG_ITS ---
Test Reason : weakness Blood Pressure : */* mmHG Vent. Rate : 82 BPM Atrial Rate : 82 BPM P-R Int : 146 ms QRS Dur : 84 ms QT Int : 380 ms P-R-T Axes : 48 57 0 degrees QTcB Int : 443 ms Normal sinus rhythm Nonspecific ST abnormality Borderline ECG When compared with ECG of 29-Jul-2024 09:42, No significant change was found Referred By: Elsa Trent Electronically Signed By: CHANTEL MARTINEZ
--- NOTE | 2024-10-06 17:24 | ED_ITS ---
HPI - Weakness General Chief complaint: General Medical Stated complaint: weakness Time Seen by Provider: 10/06/24 23:47 Source: patient and hourly sign language interpreter Mode of arrival: ambulatory Limitations: no limitations History of Present Illness ED Provider: DR. Serna HPI Narrative: 34-year-old female only speaks lao creole presented with a complaint of generalized weakness, hourly sign language interpreter service was used to obtain history patient and about 1 month patient also with known history diabetes type 2 taking oral pills, patient is poor historian do not know the name or the dose of her medications came in for evaluation of generalized weakness, no headache, no nausea, no vomiting no chest pain, no abdominal pain, no vaginal bleed, no dysuria, frequency urination. Patient missed her 1st appointment last week rescheduled for next week. Related Data Previous Rx's ?Medication ?Instructions ?Recorded naproxen 500 mg tablet 500 mg PO BID PRN pain 7 days #14 10/28/23 tabs acetaminophen 500 mg tablet 500 mg PO Q6H PRN pain #30 tabs 11/04/23 (Tylenol Extra Strength) cephalexin 250 mg capsule 250 mg PO QID 7 days #28 caps 11/04/23 metformin 500 mg tablet 500 mg PO BID #60 tabs 03/09/24 cephalexin 500 mg capsule 500 mg PO QID #27 caps 04/16/24 doxycycline hyclate 100 mg capsule 100 mg PO BID #13 caps 04/16/24 metformin 500 mg tablet 500 mg PO BID 30 days #60 tabs 06/11/24 ibuprofen 600 mg tablet 600 mg PO Q6-8H PRN pain (scale 07/29/24 score 4-6) #30 tabs metformin 500 mg tablet 500 mg PO BID #60 tabs 09/21/24 vit no.95-ferrous 1 tab PO DAILY #60 tabs 09/21/24 fumarate 28 mg-folic acid 800 mcg tablet ( Multivitamins) amoxicillin 875 mg tablet 875 mg PO Q12H 5 days #10 tabs 09/26/24 cefuroxime axetil 250 mg tablet 250 mg PO BID 7 days #14 tabs 10/07/24 Allergies Allergy/AdvReac Type Severity Reaction Status Date / Time No Known Allergies Allergy Verified 10/06/24 17:25 Review of Systems 2 Review of Systems: All other systems are reviewed and are negative Constitutional: Reports as per HPI and Reports no additional constitutional complaints Eyes: Reports as per HPI and Reports no additional eye complaints Reports system reviewed and no additional complaints, except as documented Cardiovascular: Reports as per HPI and Reports no additional cardiovascular complaints Respiratory: Reports as per HPI and Reports no additional respiratory complaints Gastrointestinal: Reports as per HPI and Reports no additional gastrointestinal complaints Genitourinary: Reports no additional female genitourinary complaints Musculoskeletal: Reports no additional musculoskeletal complaints Skin/Breast: Reports system reviewed and no additional complaints, except as docu Psychiatric: Reports no additional psychiatric complaints Endocrine: Reports no additional endocrine complaints Hematologic/Lymphatic: Reports no additional hematologic/lymphatic complaints Allergic/Immunologic: Reports no additional allergic/immunologic complaints Reports system reviewed and no additional complaints, except as documented and Reports Abnormal speech present [facility] Past Medical History Medical History Abscess of shoulder Social History Social History Alcohol intake: never Patient Tobacco Use Status: Never used Tobacco Advance Directives: No Advance Directives Information Provided: No Physical Exam 2 Vital Signs: Vital Signs: Last Vital Signs Temp 97.4 F 10/06/24 22:49 Pulse 69 10/06/24 22:49 Resp 16 10/06/24 22:49 BP 113/70 10/06/24 22:49 Pulse Ox 99 10/06/24 22:49 O2 Del Method Room Air 10/06/24 22:49 BMI result Body Mass Index 28.6 Vital signs have been reviewed and appear to be correct. Blood pressure elevated. Heart rate normal. Respiratory rate normal. Temperature normal. Oxygen saturation normal. Appearance: Alert. Oriented X3. No acute distress. Head: Normal external exam. Normocephalic. Atraumatic. No [place] signs noted. No raccoon eyes noted Eyes: PERRLA. EOMI. Conjunctiva and sclera normal. Eyelids normal. ENT: TM's Normal. Pharynx normal. Uvula midline. Moist mucous membranes. No trismus noted. No drooling noted. No muffled voice noted. Neck: Normal inspection. Neck supple. FROM. No adenopathy. Thyroid Normal. No meningeal signs. No neck mass noted. CVS: Normal heart rate and rhythm. Heart sound normal. No murmurs noted. Pulses normal throughout. Respiratory: No respiratory distress. Painless inspiration. Breath sounds normal. No wheezes/rales/rhonchi noted. Chest nontender. No accessory muscle usage noted or decreased air movement noted. Abdomen: Soft and nontender. Bowel sounds normal in all 4 quadrants. No distention noted. No organomegaly noted. No visible injury noted. Back: No CVA tenderness. Full range of motion noted. Skin: Skin warm and dry. Normal skin color. Normal skin turgor. No rashes/lesions/lacerations noted. Extremities: No lower extremity edema. Extremities exhibit normal range of motion. Extremities nontender. Neuro: Oriented X 3. Cranial nerve exam: II-XII are grossly intact No motor deficit. No sensory deficit. Reflexes normal. Course Course Course Narrative: This is a Rapid Medical Examination (RME) performed by Keisha Trent PA-C in triage. Full HPI, ROS, assessment and treatment plan per primary provider in the Main ED. 34 yo female approx 1 mo here for eval of generalized weakness. states her blood sugars have been elevated at home. takes metformin. currently has not yet seen OBGYN - missed her appointment with them this morning. recently treated for UTI - compliant w/ abx. denies abd cramping/pain, vaginal bleeding, N/V. Plan: labs, UA, ekg Reevaluation(s) Reevaluation #1: early with generalized weakness, patient overall is a poor historian even with using the hourly sign language interpreter. No symptoms or complication of her early , no abdominal or pelvic pain, no vaginal bleeding. No UTI symptoms by UA is revealing mild UTI will start the patient on Ceftin. Hyperglycemia no DKA, improved with fluids and 1 dose of metformin patient was instructed to comply with her medication at home and follow-up with PCP. Time: 00:27 Medical Decision Making Differential Diagnosis Differential Diagnoses: The differential diagnosis associated with the presentation includes ( complication, DKA, hyperglycemia, UTI, dehydration, electrolyte derangement, severe anemia.) Admission/Observation Consideration of admission/observation: Escalation of care including admission/observation considered Lab Data MDM Lab Attestation statement: I reviewed the patient's lab results. 10/06/24 17:38 10/06/24 17:38 Labs: Lab Results 10/06/24 Range/Units 17:38 WBC 6.3 (4.8-10.8) X10*3/uL RBC 4.39 (4.20-5.50) X10*6/uL Hgb 13.0 (12.0-16.0) g/dl Hct 37.3 (37.0-47.0) % MCV 85.0 (80.0-98.0) fL MCH 29.6 (27.0-33.0) pg MCHC 34.9 (31.0-35.0) g/dl RDW 11.9 (11.0-16.0) % Plt Count 260 (160-400) X10*3/uL MPV 8.9 L (9.4-12.3) fL Immature Gran % (Auto) 0.3 (0.0-0.4) % Neut % (Auto) 49.9 (45-73) % Lymph % (Auto) 39.6 (20-40) % [place] % (Auto) 9.4 (2-11) % Eos % (Auto) 0.5 (0-4) % Baso % (Auto) 0.3 (0-2) % Lymph # (Auto) 2.5 (1.2-4.9) X10*3/uL [place] # (Auto) 0.6 (0.1-1.2) X10*3/uL Eos # (Auto) 0.0 (0.0-0.4) X10*3/uL Baso # (Auto) 0.0 (0.0-0.2) X10*3/uL Abs Immat Gran (auto) 0.02 (0.00-0.03) X10*3/uL Absolute Neuts (auto) 3.2 (2.0-8.3) x10*3/uL Absolute Nucleated RBC 0.000 (0.0-0.012) X10*3/uL Nucleated RBC % (auto) 0.0 (0.0-0.2) /100WBC Sodium 135 (135-145) mmol/L Potassium 4.1 (3.3-5.1) mmol/L Chloride 104 (96-108) mmol/L Carbon Dioxide 22 (22-29) mmol/L Anion Gap 13 (12-20) BUN 9 (9-16) mg/dL Creatinine 0.76 (0.5-1.4) mg/dL Estim Creat Clear Calc 97.2 Estimated GFR > 60 Random Glucose 328 H (60-115) mg/dL Calcium 8.5 D (8.4-10.2) mg/dL Magnesium 1.7 (1.6-2.6) mg/dL Total Bilirubin 0.4 (0.0-1.0) mg/dL AST 26 (5-31) U/L ALT 38 H (0-31) U/L Alkaline Phosphatase 73 (39-117) U/L Total Protein 7.2 (6.5-8.0) g/dL Albumin 3.5 (3.5-5.0) g/dL Lipase 31 (8-78) U/L Beta HCG, Quant 99252 mIU/mL Urine Color Yellow Urine Appearance Clear Urine pH 5.5 (5.0-9.0) Ur Specific [place] >= 1.030 H (1.005-1.025) Urine Protein Negative (Neg-Trace) mg/dL Urine Glucose (UA) >=1000 H (Negative) mg/dL Urine Ketones Negative (Negative) mg/dL Urine Blood Negative (Negative) Urine Nitrite Negative (Negative) Ur Leukocyte Esterase Negative (Negative) Urine RBC 0-2 (0-2) /HPF Urine WBC 6-10 H (0-5) /HPF Ur Squamous Epith Cells 6-10 (0-2) /HPF Other Crystals Present Urine Bacteria None Seen (None Seen) Hyaline Casts 0-2 (0-2) /LPF Influenza Type A (PCR) NEGATIVE (Negative) Influenza Type B (PCR) NEGATIVE (Negative) RSV RNA Qual (PCR) NEGATIVE (Negative) SARS-CoV-2 RNA (RT-PCR) NEGATIVE (Negative) Discharge Plan Discharge Clinical Impression: Diabetes in , UTI (urinary tract infection) during Patient Disposition: Home, Self-Care Instructions: Urinary Tract Infection in (ED) Additional Instructions: take your medication at home as prescribed. keep your appointment with Ob this week. Drink plenty of fluids and take the antibiotic to clear your urinary tract infection. Prescriptions: New cefuroxime axetil 250 mg tablet 250 mg PO BID 7 Days Qty: 14 0RF No Action cephalexin 250 mg capsule 250 mg PO QID 7 Days Qty: 28 0RF acetaminophen [Tylenol Extra Strength] 500 mg tablet 500 mg PO Q6H PRN (Reason: pain) Qty: 30 0RF metformin 500 mg tablet 500 mg PO BID Qty: 60 0RF naproxen 500 mg tablet 500 mg PO BID PRN (Reason: pain) 7 Days Qty: 14 0RF cephalexin 500 mg capsule 500 mg PO QID Qty: 27 0RF doxycycline hyclate 100 mg capsule 100 mg PO BID Qty: 13 0RF metformin 500 mg tablet 500 mg PO BID 30 Days Qty: 60 0RF ibuprofen 600 mg tablet 600 mg PO Q6-8H PRN (Reason: pain (scale score 4-6)) Qty: 30 0RF PNV cmb#95-ferrous fumarate-FA [ Multivitamins] 28 mg iron- 800 mcg tablet 1 tab PO DAILY Qty: 60 0RF metformin 500 mg tablet 500 mg PO BID Qty: 60 0RF amoxicillin 875 mg tablet 875 mg PO Q12H 5 Days Qty: 10 0RF Referrals: [facility] [Primary Care Provider] - Print Language: Juan Parnell
[2024-10-06 17:44] LABS: MANUAL DIFF FLAG NO
[2024-10-06 17:48] LABS: Basophils Percent Auto 0.3 % (0-2); Eosinophils Percent Auto 0.5 % (0-4); Hematocrit 37.3 % (37.0-47.0); Imm Gran Abs Auto 0.02 X10*3/uL (0.00-0.03); Imm Gran Pct Auto 0.3 % (0.0-0.4); Lymphocytes Absolute Auto 2.5 X10*3/uL (1.2-4.9); Lymphocytes Percent Auto 39.6 % (20-40); Mean Corpuscular HGB Conc 34.9 g/dl (31.0-35.0); Mean Corpuscular Hemoglobin 29.6 pg (27.0-33.0); Mean Platelet Volume 8.9 fL (9.4-12.3); Monocytes Absolute Auto 0.6 X10*3/uL (0.1-1.2); Monocytes Percent Auto 9.4 % (2-11); Neutrophils Absolute Auto 3.2 x10*3/uL (2.0-8.3); Neutrophils Percent Auto 49.9 % (45-73); Platelet Count 260 X10*3/uL (160-400); Red Blood Count 4.39 X10*6/uL (4.20-5.50); Red Cell Distribution Width 11.9 % (11.0-16.0); White Blood Count 6.3 X10*3/uL (4.8-10.8)
[2024-10-06 17:49] LABS: Appearance Urine Clear; Color Urine Yellow; Glucose Urine UA >=1000 mg/dL (Negative); Leukocyte Esterase Urine Negative (Negative); Nitrite Urine Negative (Negative); PH 5.5 (5.0-9.0); Specific Gravity - Urine >= 1.030 (1.005-1.025); UMIC TRIGGER UACC YES; Urine Blood Negative (Negative); Urine Ketones Negative (Negative); Urine Protein Negative (Neg-Trace)
[2024-10-06 18:00] LABS: Alanine Aminotransferase 38 U/L (0-31); Albumin Level 3.5 g/dL (3.5-5.0); Alkaline Phosphatase 73 U/L (39-117); Anion Gap 13 (12-20); Aspartate Amino Transferase 26 U/L (5-31); Bilirubin Total 0.4 mg/dL (0.0-1.0); Blood Urea Nitrogen 9 mg/dL (9-16); Calcium 8.5 mg/dL (8.4-10.2); Carbon Dioxide 22 mmol/L (22-29); Chloride 104 mmol/L (96-108); Creatinine Clr Calc Pharmacy 97.2; Estimated Glomerular Filt Rate > 60; Glucose Random 328 mg/dL (60-115); Lipase 31 U/L (8-78); Magnesium 1.7 mg/dL (1.6-2.6); Potassium 4.1 mmol/L (3.3-5.1); Sodium 135 mmol/L (135-145); Total Protein 7.2 g/dL (6.5-8.0)
[2024-10-06 18:18] LABS: Bacteria Urine None Seen (None Seen); Hyaline Casts Urine 0-2 /LPF (0-2); Other Crystals Urine Present; RBC Urine 0-2 /HPF (0-2); UACC Culture Trigger YES
[2024-10-06 18:25] LABS: Influenza A PCR NEGATIVE (Negative); Influenza B PCR NEGATIVE (Negative); Resp Syncy Virus RNA Qual PCR NEGATIVE (Negative); SARS COV2 PCR INHOUSE NEGATIVE (Negative)
[2024-10-06 22:49] VITALS: BP 113/70; PULSE 69; RESP 16; TEMP 36.3; O2SAT 99
[2024-10-07] MEDS: 0.9 % Sodium Chloride 1,000 ML 999 ML IV (00:32)
[2024-10-07] MEDS: cefuroxime axetiL 250 MG TABLET PO (00:33)
[2024-10-07] MEDS: metFORMIN HCl 500 MG TABLET PO (00:33)
[2024-10-07 00:41] LABS: Glucose, Whole Blood 194 mg/dL (60-115)
[2024-10-07 00:54] VITALS: BP 102/60; PULSE 60; RESP 14; TEMP 36.8; O2SAT 98
[2024-10-07 01:31] LABS: Glucose, Whole Blood 176 mg/dL (60-115)
[2024-10-07 02:40] VITALS: BP 110/67; PULSE 83; RESP 18; TEMP 36.7; O2SAT 100
== END 2024-10-07 02:41 | disposition home or self-care (01) ==
PROVIDERS: Physician Assistant Medical; Emergency Provider Emergency Medicine
DX: O24.911 Unspecified diabetes mellitus in pregnancy, first trimester (principal); O23.41 Unspecified infection of urinary tract in pregnancy, first trimester; N39.0 Urinary tract infection, site not specified; Z3A.00 Weeks of gestation of pregnancy not specified; Z79.84 Long term (current) use of oral hypoglycemic drugs; Z79.899 Other long term (current) drug therapy; Z03.818 Encounter for observation for suspected exposure to other biological agents ruled out
CPT/HCPCS: 0241U; 36415; 80053; 81001; 82947; 83690; 83735; 84702; 85025; 87086; 93005; 99283; 99285

== ENCOUNTER → 2024-10-06 17:22 | Outpatient (BNV) | payer OTHER, SELFPAY | PROVIDERS: Emergency Provider Emergency Medicine; Visit Provider Internal Medicine | DX: R53.1 Weakness (principal) | CPT/HCPCS: 93010 ==

== ENCOUNTER 2024-10-08 18:58 | Emergency (ER) | payer OTHER, SELFPAY ==
[2024-10-08 19:07] VITALS: BP 120/73; PULSE 69; RESP 19; TEMP 36.6; O2SAT 98; BMI 28.6
--- NOTE | 2024-10-08 19:08 | ED_ITS ---
HPI - General Adult General Chief complaint: General Medical Stated complaint: vomiting, weak Time Seen by Provider: 10/09/24 01:25 Source: patient Mode of arrival: ambulatory Limitations: no limitations History of Present Illness ED Provider: Dr. Tameka Ngo HPI narrative: Patient is [place] Creole speaking only. [employer] learning developer has been used. Patient Is a at approximately 5-6 weeks of gestational age. Patient comes to the emergency room complaining of nausea and vomiting for couple of days. Patient states that 2 days ago she was diagnosed with a urinary tract infection, started on cefuroxime. According to the patient, she is not tolerating the antibiotic very well, making her very nauseous. She does not have any nausea medications at home. Denies any abdominal pain, denies vaginal bleeding or spotting, denies cramp like sensations. denies flank pain hematuria or dysuria. Related Data Previous Rx's ?Medication ?Instructions ?Recorded naproxen 500 mg tablet 500 mg PO BID PRN pain 7 days #14 10/28/23 tabs acetaminophen 500 mg tablet 500 mg PO Q6H PRN pain #30 tabs 11/04/23 (Tylenol Extra Strength) cephalexin 250 mg capsule 250 mg PO QID 7 days #28 caps 11/04/23 metformin 500 mg tablet 500 mg PO BID #60 tabs 03/09/24 cephalexin 500 mg capsule 500 mg PO QID #27 caps 04/16/24 doxycycline hyclate 100 mg capsule 100 mg PO BID #13 caps 04/16/24 metformin 500 mg tablet 500 mg PO BID 30 days #60 tabs 06/11/24 ibuprofen 600 mg tablet 600 mg PO Q6-8H PRN pain (scale 07/29/24 score 4-6) #30 tabs metformin 500 mg tablet 500 mg PO BID #60 tabs 09/21/24 vit no.95-ferrous 1 tab PO DAILY #60 tabs 09/21/24 fumarate 28 mg-folic acid 800 mcg tablet ( Multivitamins) amoxicillin 875 mg tablet 875 mg PO Q12H 5 days #10 tabs 09/26/24 cefuroxime axetil 250 mg tablet 250 mg PO BID 7 days #14 tabs 10/07/24 doxylamine succinate 25 mg tablet 25 mg PO . b.i.d. PRN nausea #30 03/13/25 tabs nitrofurantoin 100 mg PO Q12H 7 days #14 caps 10/09/24 monohydrate/macrocrystals 100 mg capsule (Macrobid) pyridoxine (vitamin B6) 25 mg 25 mg PO BID PRN nausea and 10/09/24 tablet vomiting #30 tabs Allergies Allergy/AdvReac Type Severity Reaction Status Date / Time No Known Allergies Allergy Verified 10/08/24 19:12 Review of Systems 2 Review of Systems: Constitutional : No Weight loss, No Fever, No Chills, No Night Sweats, No Fatigue, No Malaise ENT/Mouth : No Hearing loss, No Ear Pain, No Nasal Congestion, No Sinus Pain, No Hoarseness, No sore throat, No Rhinorrhea, No Swallowing Difficulty Eyes: No Eye Pain, No Swelling, No Redness, No Foreign Body, No Discharge, No Vision Changes Cardiovascular : No Chest Pain, No SOB, No Dyspnea on Exertion, No Orthopnea, No Edema, No Palpitations Respiratory : No Cough, No Sputum, No Wheezing, No Smoke Exposure, No Dyspnea Gastrointestinal : patient complaining of nausea and vomiting, No Diarrhea, No Constipation, No abdominal Pain, No Hematochezia, No Melena Genitourinary : no irregular bleeding, No Dysuria, No Urinary Frequency, No Hematuria, No Urinary Incontinence, No Urgency, No Flank Pain, No Urinary Flow Changes, No Hesitancy Musculoskeletal : No joint pain, No Myalgias, No Joint Swelling Skin : No Skin Lesions, No rash Neuro : No Weakness, No Numbness, No Paresthesias, No Loss of Consciousness, No Dizziness, No Headache Psych : No Anxiety/Panic, No Depression, No SI/HI/AH/VH, No Social Issues, Heme/Lymph: No Bruising, No Bleeding,No Lymphadenopathy Endocrine : No Polyuria, No Polydipsia, No Temperature Intolerance [facility] Past Medical History Medical History Abscess of shoulder Social History Social History Alcohol intake: never Patient Tobacco Use Status: Never used Tobacco Smoked in Last 30 Days: No Use of substances other than those prescribed or required for medical reasons: No Advance Directives: No Advance Directives Information Provided: No Do you have a plan to hurt others: No Plan Patient : Yes Physical Exam ED Vital Signs: Vital Signs - 24 hr 10/08/24 19:07 10/08/24 22:25 10/09/24 00:30 Temperature 98 F Pulse Rate 69 62 60 Respiratory Rate 19 16 14 Blood Pressure 120/73 104/66 104/63 Pulse Oximetry 98 98 98 Oxygen Delivery Method Room Air Room Air Room Air BMI result Body Mass Index 28.6 Const Other: Appearance: Alert. Oriented X3. No acute distress. Eyes: Pupils equal, round and reactive to light. ENT: Pharynx normal. Neck: Normal inspection. Neck supple. No lymph nodes noted. No crepitus CVS: Normal heart rate and rhythm. Pulses normal. Normal S1 and S2 Respiratory: No respiratory distress. Breath sounds normal. No Wheezing. No rales Abdomen: Soft and nontender. No rigidity. No distention. Skin: Skin warm and dry. Normal skin color. Normal skin turgor. Extremities: No lower extremity edema. No Lacerations. No Rash Neuro: Oriented X 3. No motor deficit. No sensory deficit. Moving all extremities. No slurred speech. CN 2 through 12 grossly intact Psych: calm, cooperative, normal affect Course Course Course Narrative: RME, this is a rapid medical exam performed by Bc Song please refer to primary provider for complete H&P- 34-year-old female who was approximately 1 month presents for evaluation of vomiting. She was seen here 2 days ago and with diabetes UTI. She reports that she has not been to because she believes it was making her vomit. She reports increased weakness. Plan for labs, urinalysis, beta hydroxybutyrate. No lower abdominal pain, vaginal bleeding or discharge Medical Decision Making Medical Decision Making [facility] Narrative: My interpretation of labs: No significant abnormality in patient's hematology and chemistry, hCG 88,544 urinalysis positive for trace leukocyte esterase. Given that the patient is , we will treat with antibiotics. Patient is already on cefuroxime but she is not tolerating very well. Therefore we will switch her antibiotics to Macrobid. Microbiology report from patient's urine collected 3 days ago was positive for strep agalactiae but did not grow any other bacteria. Patient was seen 3 weeks ago by OBGYN here at [facility]. Patient is high risk , diabetic, referred to [facility] at [facility]. Discussed with the patient to stop taking the current antibiotic and start taking Macrobid. Also, nausea medications sent to the patient's pharmacy, pyridoxine and doxylamine Lab Data MDM Lab Attestation statement: I reviewed the patient's lab results. 10/08/24 19:26 10/08/24 19:26 Labs: Lab Results 10/08/24 10/08/24 Range/Units 19:26 22:41 WBC 6.4 (4.8-10.8) X10*3/uL RBC 4.48 (4.20-5.50) X10*6/uL Hgb 13.5 (12.0-16.0) g/dl Hct 38.1 (37.0-47.0) % MCV 85.0 (80.0-98.0) fL MCH 30.1 (27.0-33.0) pg MCHC 35.4 H (31.0-35.0) g/dl RDW 11.9 (11.0-16.0) % Plt Count 267 (160-400) X10*3/uL MPV 8.9 L (9.4-12.3) fL Immature Gran % (Auto) 0.3 (0.0-0.4) % Neut % (Auto) 50.2 (45-73) % Lymph % (Auto) 40.3 H (20-40) % [place] % (Auto) 8.6 (2-11) % Eos % (Auto) 0.3 (0-4) % Baso % (Auto) 0.3 (0-2) % Lymph # (Auto) 2.6 (1.2-4.9) X10*3/uL [place] # (Auto) 0.6 (0.1-1.2) X10*3/uL Eos # (Auto) 0.0 (0.0-0.4) X10*3/uL Baso # (Auto) 0.0 (0.0-0.2) X10*3/uL Abs Immat Gran (auto) 0.02 (0.00-0.03) X10*3/uL Absolute Neuts (auto) 3.2 (2.0-8.3) x10*3/uL Absolute Nucleated RBC 0.000 (0.0-0.012) X10*3/uL Nucleated RBC % (auto) 0.0 (0.0-0.2) /100WBC Sodium 136 (135-145) mmol/L Potassium 3.8 (3.3-5.1) mmol/L Chloride 105 (96-108) mmol/L Carbon Dioxide 22 (22-29) mmol/L Anion Gap 13 (12-20) BUN 6 L (9-16) mg/dL Creatinine 0.78 (0.5-1.4) mg/dL Estim Creat Clear Calc 94.6 Estimated GFR > 60 POC Glucose 148 H (60-115) mg/dL Random Glucose 152 H (60-115) mg/dL Calcium 9.4 D (8.4-10.2) mg/dL Total Bilirubin 0.6 (0.0-1.0) mg/dL AST 22 (5-31) U/L ALT 32 H (0-31) U/L Alkaline Phosphatase 74 (39-117) U/L Total Protein 7.7 (6.5-8.0) g/dL Albumin 3.8 (3.5-5.0) g/dL Lipase 32 (8-78) U/L Beta-Hydroxybutyrate 0.16 (0.02-0.27) mmol/L Beta HCG, Quant 55577 mIU/mL Urine Color Yellow Urine Appearance Clear Urine pH 8.0 (5.0-9.0) Ur Specific [place] 1.010 (1.005-1.025) Urine Protein Negative (Neg-Trace) mg/dL Urine Glucose (UA) Negative (Negative) mg/dL Urine Ketones Negative (Negative) mg/dL Urine Blood Negative (Negative) Urine Nitrite Negative (Negative) Ur Leukocyte Esterase Trace H (Negative) Urine RBC 0-2 (0-2) /HPF Urine WBC 0-5 (0-5) /HPF Ur Squamous Epith Cells 3-5 (0-2) /HPF Urine Bacteria None Seen (None Seen) Hyaline Casts 0-2 (0-2) /LPF Influenza Type A (PCR) NEGATIVE (Negative) Influenza Type B (PCR) NEGATIVE (Negative) RSV RNA Qual (PCR) NEGATIVE (Negative) SARS-CoV-2 RNA (RT-PCR) NEGATIVE (Negative) Discharge Plan Discharge Clinical Impression: Medication side effects, UTI (urinary tract infection), Nausea & vomiting Patient Disposition: Home, Self-Care Additional Instructions: Please follow-up with your primary care physician tomorrow. If you have any worsening or new symptoms, please return to the emergency room or call 911 you have been referred by your OBGYN to [facility]. if you do not hear from them, please call and schedule an appointment. [address], [place]. Prescriptions: New nitrofurantoin monohyd/m-cryst [Macrobid] 100 mg capsule 100 mg PO Q12H 7 Days Qty: 14 0RF Rx Instructions: must administer with a meal/food doxylamine succinate 25 mg tablet 25 mg PO . b.i.d. PRN (Reason: nausea) Qty: 30 0RF pyridoxine (vitamin B6) 25 mg tablet 25 mg PO BID PRN (Reason: nausea and vomiting) Qty: 30 0RF Rx Instructions: take together with doxylamine p.r.n. nausea/vomiting No Action cephalexin 250 mg capsule 250 mg PO QID 7 Days Qty: 28 0RF acetaminophen [Tylenol Extra Strength] 500 mg tablet 500 mg PO Q6H PRN (Reason: pain) Qty: 30 0RF metformin 500 mg tablet 500 mg PO BID Qty: 60 0RF naproxen 500 mg tablet 500 mg PO BID PRN (Reason: pain) 7 Days Qty: 14 0RF cephalexin 500 mg capsule 500 mg PO QID Qty: 27 0RF doxycycline hyclate 100 mg capsule 100 mg PO BID Qty: 13 0RF metformin 500 mg tablet 500 mg PO BID 30 Days Qty: 60 0RF ibuprofen 600 mg tablet 600 mg PO Q6-8H PRN (Reason: pain (scale score 4-6)) Qty: 30 0RF PNV cmb#95-ferrous fumarate-FA [ Multivitamins] 28 mg iron- 800 mcg tablet 1 tab PO DAILY Qty: 60 0RF metformin 500 mg tablet 500 mg PO BID Qty: 60 0RF amoxicillin 875 mg tablet 875 mg PO Q12H 5 Days Qty: 10 0RF cefuroxime axetil 250 mg tablet 250 mg PO BID 7 Days Qty: 14 0RF Stand Alone Forms: Work/School Release Print Language: Juan Parnell
[2024-10-08 19:40] LABS: MANUAL DIFF FLAG NO
[2024-10-08 19:46] LABS: Appearance Urine Clear; Basophils Percent Auto 0.3 % (0-2); Color Urine Yellow; Eosinophils Percent Auto 0.3 % (0-4); Glucose Urine UA Negative (Negative); Hematocrit 38.1 % (37.0-47.0); Hemoglobin 13.5 g/dl (12.0-16.0); Imm Gran Abs Auto 0.02 X10*3/uL (0.00-0.03); Imm Gran Pct Auto 0.3 % (0.0-0.4); Leukocyte Esterase Urine Trace (Negative); Lymphocytes Absolute Auto 2.6 X10*3/uL (1.2-4.9); Lymphocytes Percent Auto 40.3 % (20-40); Mean Corpuscular HGB Conc 35.4 g/dl (31.0-35.0); Mean Corpuscular Hemoglobin 30.1 pg (27.0-33.0); Mean Platelet Volume 8.9 fL (9.4-12.3); Monocytes Absolute Auto 0.6 X10*3/uL (0.1-1.2); Monocytes Percent Auto 8.6 % (2-11); Neutrophils Absolute Auto 3.2 x10*3/uL (2.0-8.3); Neutrophils Percent Auto 50.2 % (45-73); Nitrite Urine Negative (Negative); Platelet Count 267 X10*3/uL (160-400); Red Blood Count 4.48 X10*6/uL (4.20-5.50); Red Cell Distribution Width 11.9 % (11.0-16.0); UMIC TRIGGER UACC YES; Urine Blood Negative (Negative); Urine Ketones Negative (Negative); Urine Protein Negative (Neg-Trace); White Blood Count 6.4 X10*3/uL (4.8-10.8)
[2024-10-08 19:51] LABS: Bacteria Urine None Seen (None Seen); Hyaline Casts Urine 0-2 /LPF (0-2); RBC Urine 0-2 /HPF (0-2); WBC Urine 0-5 /HPF (0-5)
[2024-10-08 20:06] LABS: Alanine Aminotransferase 32 U/L (0-31); Albumin Level 3.8 g/dL (3.5-5.0); Alkaline Phosphatase 74 U/L (39-117); Anion Gap 13 (12-20); Aspartate Amino Transferase 22 U/L (5-31); Bilirubin Total 0.6 mg/dL (0.0-1.0); Blood Urea Nitrogen 6 mg/dL (9-16); Calcium 9.4 mg/dL (8.4-10.2); Carbon Dioxide 22 mmol/L (22-29); Chloride 105 mmol/L (96-108); Creatinine Clr Calc Pharmacy 94.6; Estimated Glomerular Filt Rate > 60; Glucose Random 152 mg/dL (60-115); Lipase 32 U/L (8-78); Potassium 3.8 mmol/L (3.3-5.1); Sodium 136 mmol/L (135-145); Total Protein 7.7 g/dL (6.5-8.0)
[2024-10-08 20:22] LABS: Influenza A PCR NEGATIVE (Negative); Influenza B PCR NEGATIVE (Negative); Resp Syncy Virus RNA Qual PCR NEGATIVE (Negative); SARS COV2 PCR INHOUSE NEGATIVE (Negative)
[2024-10-08 20:39] LABS: Beta-Hydroxybutyrate 0.16 mmol/L (0.02-0.27)
[2024-10-08 22:25] VITALS: BP 104/66; PULSE 62; RESP 16; O2SAT 98
[2024-10-08 22:45] LABS: Glucose, Whole Blood 148 mg/dL (60-115)
[2024-10-09 00:30] VITALS: BP 104/63; PULSE 60; RESP 14; O2SAT 98
[2024-10-09 02:03] VITALS: BP 104/65; PULSE 75; RESP 16; TEMP 36.7; O2SAT 99
[2024-10-09] MEDS: Nitrofurantoin Monohyd/M-Cryst 100 MG CAPSULE PO (02:07)
[2024-10-09 02:10] VITALS: BP 104/65; PULSE 75; RESP 16; TEMP 36.7; O2SAT 99
== END 2024-10-09 02:10 | disposition home or self-care (01) ==
PROVIDERS: Physician Assistant; Emergency Provider Emergency Medicine
DX: O21.0 Mild hyperemesis gravidarum (principal); Z3A.01 Less than 8 weeks gestation of pregnancy; N39.0 Urinary tract infection, site not specified; Z03.818 Encounter for observation for suspected exposure to other biological agents ruled out; Z79.899 Other long term (current) drug therapy
CPT/HCPCS: 0241U; 36415; 80053; 81001; 82010; 82947; 83690; 84702; 85025; 99283; 99284

== ENCOUNTER 2024-10-18 15:45 | Emergency (ER) | payer OTHER, SELFPAY ==
--- NOTE | ~2024-10-18 | US_ITS ---
CLINICAL HISTORY: 9-10wks , bleeding today US OB 1st trimester transabdominal Comparison: US/DC - US OB PELVIC AND TRANSVAGINAL - 09/21/24 20:57 EST Findings: Single living intrauterine . CRL: 2.9 cm. EGA: 9 weeks 6 days. MODESTA: 05/17/25. Previously established MODESTA: 05/19/2025. Normal yolk sac . Cardiac activity: 172 bpm. No subchorionic bleed. Right ovary measures 2.6 x 2.0 x 2.0 cm. Incidental note of a small echogenic area within the ovary measuring 0.8 x 0.9 x 1.0 cm, which is not shadowing. This could be a small intra ovarian dermoid. Left ovary measures 3.3 x 1.5 x 1.8 cm. There is a 1.7 cm corpus luteum cyst within the left ovary. Morphology is otherwise normal. IMPRESSION: Single living intrauterine estimated 9 weeks 6 days gestational age by today's ultrasound criteria. Small echogenic 1 cm lesion within the right ovary, which could be a small dermoid. This document has been electronically signed by: Maynor Mckeon MD on 10/18/2024 18:59:36
[2024-10-18 16:17] VITALS: BP 111/74; PULSE 81; RESP 18; TEMP 37.3; O2SAT 99; BMI 23.8
--- NOTE | 2024-10-18 16:18 | ED.GENADULT ---
HPI - General Adult General Chief complaint: General Medical Stated complaint: preg. vaginal bleeding Time Seen by Provider: 10/19/24 03:59 Source: patient Mode of arrival: ambulatory Limitations: language barrier History of Present Illness ED Provider: HPI narrative: Patient is comes here for vaginal bleeding started on 10/18 in a.m. dark color small amount of bleed with no discomfort prior prior to that patient did not have any problem with this has not seen any Ob G at patient is a last ultrasound on 09/21 which was normal since bleeding in the a.m. patient did not have any more bleeding patient is B-positive blood type Related Data Previous Rx's ?Medication ?Instructions ?Recorded naproxen 500 mg tablet 500 mg PO BID PRN pain 7 days #14 10/28/23 tabs acetaminophen 500 mg tablet 500 mg PO Q6H PRN pain #30 tabs 11/04/23 (Tylenol Extra Strength) cephalexin 250 mg capsule 250 mg PO QID 7 days #28 caps 11/04/23 metformin 500 mg tablet 500 mg PO BID #60 tabs 03/09/24 cephalexin 500 mg capsule 500 mg PO QID #27 caps 04/16/24 doxycycline hyclate 100 mg capsule 100 mg PO BID #13 caps 04/16/24 metformin 500 mg tablet 500 mg PO BID 30 days #60 tabs 06/11/24 ibuprofen 600 mg tablet 600 mg PO Q6-8H PRN pain (scale 07/29/24 score 4-6) #30 tabs metformin 500 mg tablet 500 mg PO BID #60 tabs 09/21/24 vit no.95-ferrous 1 tab PO DAILY #60 tabs 09/21/24 fumarate 28 mg-folic acid 800 mcg tablet ( Multivitamins) amoxicillin 875 mg tablet 875 mg PO Q12H 5 days #10 tabs 09/26/24 cefuroxime axetil 250 mg tablet 250 mg PO BID 7 days #14 tabs 10/07/24 doxylamine succinate 25 mg tablet 25 mg PO . b.i.d. PRN nausea #30 10/09/24 tabs nitrofurantoin 100 mg PO Q12H 7 days #14 caps 10/09/24 monohydrate/macrocrystals 100 mg capsule (Macrobid) pyridoxine (vitamin B6) 25 mg 25 mg PO BID PRN nausea and 10/09/24 tablet vomiting #30 tabs Allergies Allergy/AdvReac Type Severity Reaction Status Date / Time No Known Allergies Allergy Verified 10/18/24 16:26 Review of Systems Review of Systems: Yes all other systems are reviewed and are negative [facility] Past Medical History Medical History Abscess of shoulder Social History Social History Alcohol intake: never Patient Tobacco Use Status: Never used Tobacco Smoked in Last 30 Days: No Use of substances other than those prescribed or required for medical reasons: No Advance Directives: No Advance Directives Information Provided: No Patient : Yes Physical Exam ED Vital Signs: Vital Signs - 24 hr 10/18/24 16:17 10/18/24 23:13 10/19/24 04:22 Temperature 99.1 F 98.2 F 98.2 F Pulse Rate 81 72 78 Respiratory Rate 18 16 16 Blood Pressure 111/74 101/58 L 107/67 Pulse Oximetry 99 99 99 Oxygen Delivery Method Room Air Room Air Room Air 10/19/24 04:23 Temperature 98.2 F Pulse Rate 78 Respiratory Rate 16 Blood Pressure 107/67 Pulse Oximetry 99 Oxygen Delivery Method Room Air BMI result Body Mass Index 23.8 Appearance: Alert. Oriented X3. No acute distress. Eyes: No pallor or icterus ENT: Pharynx normal. Oral Mucosa moist Neck: Normal inspection. Neck supple. CVS: Normal heart rate and rhythm. Pulses normal. Respiratory: No respiratory distress. Equal air entry bilateral, no wheezing/rales/rhonchi Abdomen: Soft and nontender. Bowel sounds are present, no mass palpable, no CVA tenderness Skin: Skin warm and dry. Normal skin color. Normal skin turgor. Extremities: No lower extremity edema. No calf tenderness Neuro: Oriented X 3. No motor deficit. No sensory deficit.No cerebellar signs , cranial nerves II-XII intact Course Course Course Narrative: This is an RME performed by Alejandro Zuniga CNP: Additional HPI, ROS, PE not included below will be deferred to primary provider. Patient is a 34-year-old female , approximately 9-10 weeks , who presents for evaluation of vaginal bleeding described as dark blood noticed on her undergarments not requiring any sanitary napkin. Onset this morning. Denies associated abdominal pain, cramping, nausea or vomiting has not yet established care with OBGYN, has newly diagnosed uncontrolled diabetes, still has yet to establish care with a PCP. Plan: Will obtain serum labs, ultrasound, urinalysis Medical Decision Making Medical Decision Making [facility] Narrative: Patient with minor vaginal bleed 9 weeks 6 IUP patient advised to follow with Ob G no active bleeding at this time Lab Data [facility] Lab Attestation statement: I reviewed the patient's lab results. 10/18/24 16:46 10/18/24 16:46 Labs: Lab Results 10/18/24 Range/Units 16:46 WBC 7.0 (4.8-10.8) X10*3/uL RBC 4.52 (4.20-5.50) X10*6/uL Hgb 13.5 (12.0-16.0) g/dl Hct 38.2 (37.0-47.0) % MCV 84.5 (80.0-98.0) fL MCH 29.9 (27.0-33.0) pg MCHC 35.3 H (31.0-35.0) g/dl RDW 11.7 (11.0-16.0) % Plt Count 263 (160-400) X10*3/uL MPV 9.3 L (9.4-12.3) fL Immature Gran % (Auto) 0.6 H (0.0-0.4) % Neut % (Auto) 61.1 (45-73) % Lymph % (Auto) 32.0 (20-40) % [place] % (Auto) 5.9 (2-11) % Eos % (Auto) 0.1 (0-4) % Baso % (Auto) 0.3 (0-2) % Lymph # (Auto) 2.2 (1.2-4.9) X10*3/uL [place] # (Auto) 0.4 (0.1-1.2) X10*3/uL Eos # (Auto) 0.0 (0.0-0.4) X10*3/uL Baso # (Auto) 0.0 (0.0-0.2) X10*3/uL Abs Immat Gran (auto) 0.04 H (0.00-0.03) X10*3/uL Absolute Neuts (auto) 4.3 (2.0-8.3) x10*3/uL Absolute Nucleated RBC 0.000 (0.0-0.012) X10*3/uL Nucleated RBC % (auto) 0.0 (0.0-0.2) /100WBC Sodium 133 L (135-145) mmol/L Potassium 3.9 (3.3-5.1) mmol/L Chloride 103 (96-108) mmol/L Carbon Dioxide 19 L (22-29) mmol/L Anion Gap 15 (12-20) BUN 4 L (9-16) mg/dL Creatinine 0.63 (0.5-1.4) mg/dL Estim Creat Clear Calc 128.1 Estimated GFR > 60 Random Glucose 117 H (60-115) mg/dL Calcium 9.4 (8.4-10.2) mg/dL Total Bilirubin 0.6 (0.0-1.0) mg/dL AST 38 H (5-31) U/L ALT 51 H (0-31) U/L Alkaline Phosphatase 107 (39-117) U/L Total Protein 8.5 H (6.5-8.0) g/dL Albumin 3.9 (3.5-5.0) g/dL Beta HCG, Quant 35258 mIU/mL Urine Color Yellow Urine Appearance Clear Urine pH 6.5 (5.0-9.0) Ur Specific [place] <= 1.005 (1.005-1.025) Urine Protein Negative (Neg-Trace) mg/dL Urine Glucose (UA) Negative (Negative) mg/dL Urine Ketones Trace (Negative) mg/dL Urine Blood Small (1+) H (Negative) Urine Nitrite Negative (Negative) Ur Leukocyte Esterase Negative (Negative) Urine RBC 0-2 (0-2) /HPF Urine WBC 0-5 (0-5) /HPF Ur Squamous Epith Cells 3-5 (0-2) /HPF Urine Bacteria None Seen (None Seen) Hyaline Casts 0-2 (0-2) /LPF Blood Type B Positive Independent Interpretation I performed an independent interpretation of an: Ultrasound Radiology Impression Discussion of test interpretation with radiology: I have reviewed the radiologist's reading. Radiologist Impression: Findings: Single living intrauterine . CRL: 2.9 cm. EGA: 9 weeks 6 days. MODESTA: 05/17/25. Previously established MODESTA: 05/19/2025. Normal yolk sac . Cardiac activity: 172 bpm. No subchorionic bleed. Right ovary measures 2.6 x 2.0 x 2.0 cm. Incidental note of a small echogenic area within the ovary measuring 0.8 x 0.9 x 1.0 cm, which is not shadowing. This could be a small intra ovarian dermoid. Left ovary measures 3.3 x 1.5 x 1.8 cm. There is a 1.7 cm corpus luteum cyst within the left ovary. Morphology is otherwise normal. IMPRESSION: Single living intrauterine estimated 9 weeks 6 days gestational age by today's ultrasound criteria. Small echogenic 1 cm lesion within the right ovary, which could be a small dermoid. This document has been electronically signed by: Maynor Mckeon MD on 10/18/2024 18:59:36 Discharge Plan Discharge Clinical Impression: Threatened Patient Disposition: Home, Self-Care Instructions: Threatened Miscarriage (ED) Additional Instructions: Rest at home Follow up with your Ob G At this time your ultrasound shows normal 9 weeks 6 days no signs of bleeding MODESTA is 05/17/2025 Report to the ER if recurrence of bleed/pain in the abdomen Prescriptions: No Action cephalexin 250 mg capsule 250 mg PO QID 7 Days Qty: 28 0RF acetaminophen [Tylenol Extra Strength] 500 mg tablet 500 mg PO Q6H PRN (Reason: pain) Qty: 30 0RF metformin 500 mg tablet 500 mg PO BID Qty: 60 0RF naproxen 500 mg tablet 500 mg PO BID PRN (Reason: pain) 7 Days Qty: 14 0RF cephalexin 500 mg capsule 500 mg PO QID Qty: 27 0RF doxycycline hyclate 100 mg capsule 100 mg PO BID Qty: 13 0RF metformin 500 mg tablet 500 mg PO BID 30 Days Qty: 60 0RF ibuprofen 600 mg tablet 600 mg PO Q6-8H PRN (Reason: pain (scale score 4-6)) Qty: 30 0RF PNV cmb#95-ferrous fumarate-FA [ Multivitamins] 28 mg iron- 800 mcg tablet 1 tab PO DAILY Qty: 60 0RF metformin 500 mg tablet 500 mg PO BID Qty: 60 0RF amoxicillin 875 mg tablet 875 mg PO Q12H 5 Days Qty: 10 0RF cefuroxime axetil 250 mg tablet 250 mg PO BID 7 Days Qty: 14 0RF nitrofurantoin monohyd/m-cryst [Macrobid] 100 mg capsule 100 mg PO Q12H 7 Days Qty: 14 0RF Rx Instructions: must administer with a meal/food doxylamine succinate 25 mg tablet 25 mg PO . b.i.d. PRN (Reason: nausea) Qty: 30 0RF pyridoxine (vitamin B6) 25 mg tablet 25 mg PO BID PRN (Reason: nausea and vomiting) Qty: 30 0RF Rx Instructions: take together with doxylamine p.r.n. nausea/vomiting Interventions: ED Discharge Assessment Last Done: 10/19/24 04:23 Print Language: Juan Parnell
[2024-10-18 16:51] LABS: MANUAL DIFF FLAG NO
[2024-10-18 17:00] LABS: Appearance Urine Clear; Color Urine Yellow; Glucose Urine UA Negative (Negative); Leukocyte Esterase Urine Negative (Negative); Nitrite Urine Negative (Negative); PH 6.5 (5.0-9.0); Specific Gravity - Urine <= 1.005 (1.005-1.025); UMIC TRIGGER UACC YES; Urine Blood Small (1+) (Negative); Urine Ketones Trace mg/dL (Negative); Urine Protein Negative (Neg-Trace)
[2024-10-18 17:11] LABS: Albumin Level 3.9 g/dL (3.5-5.0); Alkaline Phosphatase 107 U/L (39-117); Anion Gap 15 (12-20); Aspartate Amino Transferase 38 U/L (5-31); Bilirubin Total 0.6 mg/dL (0.0-1.0); Blood Urea Nitrogen 4 mg/dL (9-16); Calcium 9.4 mg/dL (8.4-10.2); Carbon Dioxide 19 mmol/L (22-29); Chloride 103 mmol/L (96-108); Creatinine Clr Calc Pharmacy 128.1; Estimated Glomerular Filt Rate > 60; Glucose Random 117 mg/dL (60-115); Potassium 3.9 mmol/L (3.3-5.1); Sodium 133 mmol/L (135-145); Total Protein 8.5 g/dL (6.5-8.0)
[2024-10-18 17:13] LABS: Basophils Percent Auto 0.3 % (0-2); Eosinophils Percent Auto 0.1 % (0-4); Hematocrit 38.2 % (37.0-47.0); Hemoglobin 13.5 g/dl (12.0-16.0); Imm Gran Abs Auto 0.04 X10*3/uL (0.00-0.03); Imm Gran Pct Auto 0.6 % (0.0-0.4); Lymphocytes Absolute Auto 2.2 X10*3/uL (1.2-4.9); Mean Corpuscular HGB Conc 35.3 g/dl (31.0-35.0); Mean Corpuscular Hemoglobin 29.9 pg (27.0-33.0); Mean Corpuscular Volume 84.5 fL (80.0-98.0); Mean Platelet Volume 9.3 fL (9.4-12.3); Monocytes Absolute Auto 0.4 X10*3/uL (0.1-1.2); Monocytes Percent Auto 5.9 % (2-11); Neutrophils Absolute Auto 4.3 x10*3/uL (2.0-8.3); Neutrophils Percent Auto 61.1 % (45-73); Platelet Count 263 X10*3/uL (160-400); Red Blood Count 4.52 X10*6/uL (4.20-5.50); Red Cell Distribution Width 11.7 % (11.0-16.0)
[2024-10-18 17:23] LABS: Alanine Aminotransferase 51 U/L (0-31)
[2024-10-18 17:25] LABS: Bacteria Urine None Seen (None Seen); Hyaline Casts Urine 0-2 /LPF (0-2); RBC Urine 0-2 /HPF (0-2); WBC Urine 0-5 /HPF (0-5)
[2024-10-18 23:13] VITALS: BP 101/58; PULSE 72; RESP 16; TEMP 36.8; O2SAT 99
[2024-10-19 04:22] VITALS: BP 107/67; PULSE 78; RESP 16; TEMP 36.8; O2SAT 99
[2024-10-19 04:23] VITALS: BP 107/67; PULSE 78; RESP 16; TEMP 36.8; O2SAT 99
== END 2024-10-19 04:29 | disposition home or self-care (01) ==
PROVIDERS: Nurse Practitioner Family; Emergency Provider Internal Medicine
DX: O20.0 Threatened abortion (principal); Z3A.09 9 weeks gestation of pregnancy
CPT/HCPCS: 36415; 76801; 76817; 80053; 81001; 81003; 84702; 85025; 86900; 86901; 99284

== ENCOUNTER → 2024-10-18 16:25 | Outpatient (BNV) | payer OTHER, SELFPAY | PROVIDERS: Visit Provider Radiology Diagnostic Radiology | DX: Z36.9 Encounter for antenatal screening, unspecified (principal) | CPT/HCPCS: 76801; 76817 ==

== ENCOUNTER 2024-11-09 11:07 | Emergency (ER) | payer OTHER, SELFPAY ==
--- NOTE | ~2024-11-09 | US_ITS ---
CLINICAL HISTORY: ?10 weeks , nursing unable to obtain FHT Ultrasound OB. COMPARISON: US OB dated 10/18/24 at 18:14 EDT Technique: Real time transabdominal sonographic imaging was performed by the farm truck driver. Multiple in store representative static images were saved for review. FINDINGS: Estimated gestational age (EGA) by today's ultrasound: 13 weeks 0 days Estimated date of delivery (MODESTA) by today's ultrasound: 05/17/2025 Estimated gestational age by LMP: Not provided. Single intrauterine . No subchorionic hemorrhage identified. [place] rump length (CRL): 6.59 cm, 13 weeks 0 days. heart rate (FHR): 155 bpm Right ovary appears normal and measures 2.6 x 1.6 x 1.8 cm. No right adnexal mass identified. Left ovary appears normal and measures 3.4 x 1.8 x 2.2 cm. No left adnexal mass identified. No free fluid identified in the pelvic cul-de-sac. IMPRESSION: 1. Single living intrauterine gestation estimated at 13 weeks 0 days by today's ultrasound criteria. 2. No evidence of ovarian torsion. This document has been electronically signed by: Khai Conner MD on 11/09/2024 14:35:49
[2024-11-09 11:22] VITALS: BP 107/64; PULSE 91; RESP 18; TEMP 36.6; O2SAT 100; BMI 24.1
--- NOTE | 2024-11-09 11:22 | ED_ITS ---
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 Patient reports she was living in a residential with her and 4 children when they were informed they would need to leave. They were given housing for 4 nights at a hotel on [facility] in [place]. They will need to leave tomorrow or privately pay. They do not have the funds. She does not know where they will be going. She has a phone but no cell phone service. She can get [employer] intermittently for phone calls. Of note, she has not had any OB care. This is her 6th visit in the ER for similar complaints. She has had an US here to confirm IUP. Her MODESTA 05/17/25. She reports she had a missed call from [facility] on to make her first appointment. She also has a language barrier. She also has no transportation but is able to use free bus services. No abdominal pain, vaginal bleeding, fevers, chills, vomiting, skin rash, chest pain, shortness of breath, neck pain/stiffness, headache. She is intermittently compliant with her metformin. She reports she does not take her metformin on days she does not have adequate oral intake. She reports she has not been eating much the last few days due to stress. She denies SI/HI. She feels safe with her partner. Related Data Previous Rx's ?Medication ?Instructions ?Recorded naproxen 500 mg tablet 500 mg PO BID PRN pain 7 days #14 10/28/23 tabs acetaminophen 500 mg tablet 500 mg PO Q6H PRN pain #30 tabs 11/04/23 (Tylenol Extra Strength) cephalexin 250 mg capsule 250 mg PO QID 7 days #28 caps 11/04/23 metformin 500 mg tablet 500 mg PO BID #60 tabs 03/09/24 cephalexin 500 mg capsule 500 mg PO QID #27 caps 04/16/24 doxycycline hyclate 100 mg capsule 100 mg PO BID #13 caps 04/16/24 metformin 500 mg tablet 500 mg PO BID 30 days #60 tabs 06/11/24 ibuprofen 600 mg tablet 600 mg PO Q6-8H PRN pain (scale 07/29/24 score 4-6) #30 tabs metformin 500 mg tablet 500 mg PO BID #60 tabs 09/21/24 vit no.95-ferrous 1 tab PO DAILY #60 tabs 09/21/24 fumarate 28 mg-folic acid 800 mcg tablet ( Multivitamins) amoxicillin 875 mg tablet 875 mg PO Q12H 5 days #10 tabs 09/26/24 cefuroxime axetil 250 mg tablet 250 mg PO BID 7 days #14 tabs 10/07/24 doxylamine succinate 25 mg tablet 25 mg PO . b.i.d. PRN nausea #30 10/09/24 tabs nitrofurantoin 100 mg PO Q12H 7 days #14 caps 10/09/24 monohydrate/macrocrystals 100 mg capsule (Macrobid) pyridoxine (vitamin B6) 25 mg 25 mg PO BID PRN nausea and 10/09/24 tablet vomiting #30 tabs Allergies Allergy/AdvReac Type Severity Reaction Status Date / Time No Known Allergies Allergy Verified 11/09/24 11:28 Review of Systems 2 Review of Systems: Yes all other systems are reviewed and are negative Constitutional: Constitutional: Reports no additional constitutional complaints, Denies body ache(s), Denies chills, Denies fever(s), Denies headache(s) and Reports weakness Eyes: Eyes: Reports no additional eye complaints and Denies change in vision ENT: Reports system reviewed and no additional complaints, except as documented, Denies dizziness, Denies headache(s), Denies nasal congestion, Denies nasal discharge and Denies neck pain Cardiovascular: Cardiovascular: Reports no additional cardiovascular complaints, Denies chest pain, Denies leg edema and Denies dyspnea Respiratory: Respiratory: Reports no additional respiratory complaints, Denies cough and Denies dyspnea Gastrointestinal: Gastrointestinal: Reports no additional gastrointestinal complaints, Denies abdominal pain, Denies diarrhea, Denies nausea and Denies vomiting Genitourinary: Genitourinary: Reports no additional female genitourinary complaints and Denies urinary incontinence Musculoskeletal: Musculoskeletal: Reports no additional musculoskeletal complaints, Denies back pain, Denies arthralgias, Denies joint swelling, Denies neck pain, Denies numbness and Denies tingling Integumentary/Breasts: Skin/Breast: Reports system reviewed and no additional complaints, except as docu and Denies rash Neurologic: Reports system reviewed and no additional complaints, except as documented, Denies Abnormal speech present, Denies dizziness, Denies headache(s), Denies numbness, Denies tingling and Reports weakness Psychiatric: Psychiatric: Reports anxiety, Denies depression, Denies homicidal ideation and Denies suicidal ideation [facility] Past Medical History Attestation statement: The following information was validated with the patient. Source: old records reviewed and nursing notes reviewed Medical History Abscess of shoulder Social History Social History Alcohol intake: never Patient Tobacco Use Status: Never used Tobacco Smoked in Last 30 Days: No Use of substances other than those prescribed or required for medical reasons: No Advance Directives: No Advance Directives Information Provided: Yes Do you have a plan to hurt others: No Plan Patient : Yes Physical Exam ED Vital Signs: Vital Signs - 24 hr 11/09/24 11:22 11/09/24 16:12 11/09/24 16:38 Temperature 97.9 F 98.4 F 98.4 F Pulse Rate 91 81 81 Respiratory Rate 18 14 14 Blood Pressure 107/64 106/64 106/64 Pulse Oximetry 100 99 99 Oxygen Delivery Method Room Air Room Air Room Air BMI result Body Mass Index 24.1 Const General: cooperative, healthy appearing, comfortable and no acute distress Orientation/consciousness: patient oriented x3 Limitations: no limitations HENMT Head: Yes normal to inspection Ears: hearing grossly normal bilaterally and TM's normal bilaterally General nose exam: Normal external nose present Face and sinus: Yes normal facial exam Mouth: Normal oral and palatal mucosa present Throat: Yes posterior oropharynx normal, Yes tonsils normal and Yes uvula midline Eyes General: appearance normal, both eyes and all related structures Pupils: Equal, round and reactive pupils present Neck Neck: Yes normal visual inspection, Yes full ROM, Yes no lymphadenopathy and Yes no meningeal signs Chest Chest palpation & inspection: normal inspection of the chest Resp Effort & Inspection: normal respiratory effort Auscultation: clear to auscultation bilaterally Cardio Rate: regular rate Rhythm: regular rhythm Peripheral pulses: Peripheral pulses 2+ throughout GI Other: Gravid uterus Inspection: Yes normal to inspection Palpation (GI): Soft to palpation and nontender Auscultation: normal bowel sounds Back/Spine/Pelvis Thoracic/Lumbar Spine: thoracic and lumbar spine normal to inspection Skin General skin exam: no rashes or lesions noted Neuro General: patient oriented x3, moves all extremities, no meningeal signs, no focal motor deficits and normal sensation to monofilament Cranial nerves: Yes CN's II-XII intact bilaterally, Yes Equal, round and reactive pupils present, Yes Bilaterally intact EOM present, Yes Nystagmus not present, Yes Normal facial strength present and Yes Midline tongue present Cognition (Neuro): normal cognition Speech: No Abnormal speech present Gait exam (Neuro): Normal gait present Motor exam (neuro): 5/5 motor strength present throughout Sensory Exam: Normal double simultaneous stimulation for sensation Extrem General: Yes normal to inspection, Yes no pedal edema and Yes no calf tenderness Course Course Course Narrative: This is a rapid medical exam performed by Albert Awad NP: Additional HPI, ROS, PE not included below will be deferred to primary provider. 11/09/24 11:23 Patient is a 34-year-old 3 months gestation Bhutanese Creole speaking patient with history of newly diagnosed DM presenting to the emergency department complaining of headache for one week, weakness. Denies fevers. Patient seen on 10/18/24 for vaginal bleeding/threatened . Has not seen an APARTMENT LEASING CONSULTANT since that time. Has an OB appt last week but missed this due to housing issues. Denies current vaginal bleeding. Reports vaginal bleeding for around one week after last visit on 10/18/24. Plan: labs, UA, viral panel, u/s Reevaluation(s) Reevaluation #1: Nursing unable to obtain FHT. Doubt demise. Likely early GA with difficulty obtaining d/t body habitus. Will obtain US. Reevaluation #2: 1430-Met with CM Reevaluation #3: 1645-ultrasound shows intrauterine 13 weeks with a heart rate of 155. Labs are unremarkable. Urine shows no signs of infection. Viral testing is negative. Patient met with case management. She was given information on a residential in [place] that she can go to. She was also provide additional resources. Recommend she follow up with [facility]. If she has difficulty with her phone she can take the bus to the office to make an appointment. Reviewed worrisome signs and symptoms of when to return to the emergency room. Comfortable plan for discharge home. Medical Decision Making Medical Decision Making [facility] Narrative: 34 yo female with a history of GDM on metformin who is currently ?3 months who presents to the ER with complaints of generalized weakness, feeling anxious and having a lot of stress since Sunday. Patient reports she was living in a residential with her and 4 children when they were informed they would need to leave. They were given housing for 4 nights at a hotel on [facility] in [place]. They will need to leave tomorrow or privately pay. They do not have the funds. She does not know where they will be going. She has a phone but no cell phone service. She can get [employer] intermittently for phone calls. Of note, she has not had any OB care. This is her 6th visit in the ER for similar complaints. She has had an US here to confirm IUP. Her MODESTA 05/17/25. She reports she had a missed call from [facility] on to make her first appointment. She also has a language barrier. She also has no transportation but is able to use free bus services. No abdominal pain, vaginal bleeding, fevers, chills, vomiting, skin rash, chest pain, shortness of breath, neck pain/stiffness, headache. She is intermittently compliant with her metformin. She reports she does not take her metformin on days she does not have adequate oral intake. She reports she has not been eating much the last few days due to stress. She denies SI/HI. She feels safe with her partner. On exam, VSS. No focal weakness. No lymphadenopathy, meningeal signs. Afebrile. Abdomen soft/nontender. +BS. Seems more of a social issue. Will obtain labs, UA, Viral testing, FHT Will speak to case management Differential Diagnosis Differential Diagnoses: The differential diagnosis associated with the presentation includes See above Admission/Observation Consideration of admission/observation: Escalation of care including admission/observation considered Lab Data [facility] Lab Attestation statement: I reviewed the patient's lab results. 11/09/24 11:53 11/09/24 11:53 Labs: Lab Results 11/09/24 11/09/24 Range/Units 11:53 12:40 WBC 5.9 (4.8-10.8) X10*3/uL RBC 4.16 L (4.20-5.50) X10*6/uL Hgb 12.4 (12.0-16.0) g/dl Hct 36.0 L (37.0-47.0) % MCV 86.5 (80.0-98.0) fL MCH 29.8 (27.0-33.0) pg MCHC 34.4 (31.0-35.0) g/dl RDW 12.1 (11.0-16.0) % Plt Count 222 (160-400) X10*3/uL MPV 8.5 L (9.4-12.3) fL Immature Gran % (Auto) 0.5 H (0.0-0.4) % Neut % (Auto) 54.6 (45-73) % Lymph % (Auto) 38.0 (20-40) % [place] % (Auto) 6.4 (2-11) % Eos % (Auto) 0.3 (0-4) % Baso % (Auto) 0.2 (0-2) % Lymph # (Auto) 2.3 (1.2-4.9) X10*3/uL [place] # (Auto) 0.4 (0.1-1.2) X10*3/uL Eos # (Auto) 0.0 (0.0-0.4) X10*3/uL Baso # (Auto) 0.0 (0.0-0.2) X10*3/uL Abs Immat Gran (auto) 0.03 (0.00-0.03) X10*3/uL Absolute Neuts (auto) 3.2 (2.0-8.3) x10*3/uL Absolute Nucleated RBC 0.000 (0.0-0.012) X10*3/uL Nucleated RBC % (auto) 0.0 (0.0-0.2) /100WBC Sodium 139 (135-145) mmol/L Potassium 3.5 (3.3-5.1) mmol/L Chloride 105 (96-108) mmol/L Carbon Dioxide 24 (22-29) mmol/L Anion Gap 14 (12-20) BUN 6 L (9-16) mg/dL Creatinine 0.66 (0.5-1.4) mg/dL Estim Creat Clear Calc 122.2 Estimated GFR > 60 Random Glucose 136 H (60-115) mg/dL Calcium 9.5 (8.4-10.2) mg/dL Total Bilirubin 0.6 (0.0-1.0) mg/dL AST 25 (5-31) U/L ALT 25 (0-31) U/L Alkaline Phosphatase 65 (39-117) U/L Total Protein 7.3 (6.5-8.0) g/dL Albumin 3.8 (3.5-5.0) g/dL Beta HCG, Quant 25495 mIU/mL Urine Color Yellow Urine Appearance Cloudy Urine pH 7.5 (5.0-9.0) Ur Specific [place] 1.015 (1.005-1.025) Urine Protein Negative (Neg-Trace) mg/dL Urine Glucose (UA) Negative (Negative) mg/dL Urine Ketones Negative (Negative) mg/dL Urine Blood Negative (Negative) Urine Nitrite Negative (Negative) Ur Leukocyte Esterase Trace H (Negative) Urine RBC 0-2 (0-2) /HPF Urine WBC 0-5 (0-5) /HPF Ur Squamous Epith Cells 3-5 (0-2) /HPF Urine Bacteria None Seen (None Seen) Hyaline Casts 0-2 (0-2) /LPF Influenza Type A (PCR) NEGATIVE (Negative) Influenza Type B (PCR) NEGATIVE (Negative) RSV RNA Qual (PCR) NEGATIVE (Negative) SARS-CoV-2 RNA (RT-PCR) NEGATIVE (Negative) Independent Interpretation I performed an independent interpretation of an: Ultrasound Interpretation: I independently reviewed the ultrasound and agree with the radiology report Radiology Impression Discussion of test interpretation with radiology: I have reviewed the radiologist's reading. Radiologist Impression: [address] [address] Ultrasound Report Signed Patient: Rosemarie Tee MR#: [id number] : 1990 Acct:[id number] Age/Sex: 34 / F ADM Date: 11/09/24 Loc: HO.ED Attending Dr: Ordering Physician: Leslie Cotton NP Date of Service: 11/09/24 Procedure(s): US OB <= 14 weeks fetus Accession Number(s): [id number] cc: Leslie Cotton NP; Physician,Unknown ~ CLINICAL HISTORY: ?10 weeks , nursing unable to obtain FHT Ultrasound OB. COMPARISON: US OB dated 10/18/24 at 18:14 EDT Technique: Real time transabdominal sonographic imaging was performed by the aesthetics instructor. Multiple specialty sales representative static images were saved for review. FINDINGS: Estimated gestational age (EGA) by today's ultrasound: 13 weeks 0 days Estimated date of delivery (MODESTA) by today's ultrasound: 05/17/2025 Estimated gestational age by LMP: Not provided. Single intrauterine . No subchorionic hemorrhage identified. [place] rump length (CRL): 6.59 cm, 13 weeks 0 days. heart rate (FHR): 155 bpm Right ovary appears normal and measures 2.6 x 1.6 x 1.8 cm. No right adnexal mass identified. Left ovary appears normal and measures 3.4 x 1.8 x 2.2 cm. No left adnexal mass identified. No free fluid identified in the pelvic cul-de-sac. IMPRESSION: 1. Single living intrauterine gestation estimated at 13 weeks 0 days by today's ultrasound criteria. 2. No evidence of ovarian torsion. This document has been electronically signed by: Khai Conner MD on 11/09/2024 14:35:49 External Record Review External record reviewed: Outside ED record Discharge Plan Discharge Clinical Impression: Homeless, Patient Disposition: Home, Self-Care Instructions: at 11 to 14 Weeks (ED) Prescriptions: No Action cephalexin 250 mg capsule 250 mg PO QID 7 Days Qty: 28 0RF acetaminophen [Tylenol Extra Strength] 500 mg tablet 500 mg PO Q6H PRN (Reason: pain) Qty: 30 0RF metformin 500 mg tablet 500 mg PO BID Qty: 60 0RF naproxen 500 mg tablet 500 mg PO BID PRN (Reason: pain) 7 Days Qty: 14 0RF cephalexin 500 mg capsule 500 mg PO QID Qty: 27 0RF doxycycline hyclate 100 mg capsule 100 mg PO BID Qty: 13 0RF metformin 500 mg tablet 500 mg PO BID 30 Days Qty: 60 0RF ibuprofen 600 mg tablet 600 mg PO Q6-8H PRN (Reason: pain (scale score 4-6)) Qty: 30 0RF PNV cmb#95-ferrous fumarate-FA [ Multivitamins] 28 mg iron- 800 mcg tablet 1 tab PO DAILY Qty: 60 0RF metformin 500 mg tablet 500 mg PO BID Qty: 60 0RF amoxicillin 875 mg tablet 875 mg PO Q12H 5 Days Qty: 10 0RF cefuroxime axetil 250 mg tablet 250 mg PO BID 7 Days Qty: 14 0RF nitrofurantoin monohyd/m-cryst [Macrobid] 100 mg capsule 100 mg PO Q12H 7 Days Qty: 14 0RF Rx Instructions: must administer with a meal/food doxylamine succinate 25 mg tablet 25 mg PO . b.i.d. PRN (Reason: nausea) Qty: 30 0RF pyridoxine (vitamin B6) 25 mg tablet 25 mg PO BID PRN (Reason: nausea and vomiting) Qty: 30 0RF Rx Instructions: take together with doxylamine p.r.n. nausea/vomiting Referrals: [facility] [Other] (YOU SHOULD CALL [facility] FIRST THING SUNDAY MORNING FOR LONG-TERM ASSISTANCE) [facility]ILY LONG[facility]TERM PROGRAM [Other] EMERGENCY ASSISTANCE FAMILY LONG-TERM [Other] (YOU CAN CALL SUNDAY MORNING AT 8AM ) [facility] [Other] (THIS IS THE ONLY LONG-TERM OPEN TODAY IN THE AREA-THEY ARE AN INDIVIDUAL LONG-TERM THAT WORKS ON A FIRST COME FIRST SERVE BASIS ) [facility] [Provider Group] - 1 week Interventions: ED Discharge Assessment Last Done: 11/09/24 16:38 Print Language: Juan Parnell
[2024-11-09 12:08] LABS: MANUAL DIFF FLAG NO
[2024-11-09 12:09] LABS: Basophils Percent Auto 0.2 % (0-2); Eosinophils Percent Auto 0.3 % (0-4); Hemoglobin 12.4 g/dl (12.0-16.0); Imm Gran Abs Auto 0.03 X10*3/uL (0.00-0.03); Imm Gran Pct Auto 0.5 % (0.0-0.4); Lymphocytes Absolute Auto 2.3 X10*3/uL (1.2-4.9); Mean Corpuscular HGB Conc 34.4 g/dl (31.0-35.0); Mean Corpuscular Hemoglobin 29.8 pg (27.0-33.0); Mean Corpuscular Volume 86.5 fL (80.0-98.0); Mean Platelet Volume 8.5 fL (9.4-12.3); Monocytes Absolute Auto 0.4 X10*3/uL (0.1-1.2); Monocytes Percent Auto 6.4 % (2-11); Neutrophils Absolute Auto 3.2 x10*3/uL (2.0-8.3); Neutrophils Percent Auto 54.6 % (45-73); Platelet Count 222 X10*3/uL (160-400); Red Blood Count 4.16 X10*6/uL (4.20-5.50); Red Cell Distribution Width 12.1 % (11.0-16.0); White Blood Count 5.9 X10*3/uL (4.8-10.8)
[2024-11-09 12:32] LABS: Alanine Aminotransferase 25 U/L (0-31); Albumin Level 3.8 g/dL (3.5-5.0); Alkaline Phosphatase 65 U/L (39-117); Anion Gap 14 (12-20); Aspartate Amino Transferase 25 U/L (5-31); Bilirubin Total 0.6 mg/dL (0.0-1.0); Blood Urea Nitrogen 6 mg/dL (9-16); Calcium 9.5 mg/dL (8.4-10.2); Carbon Dioxide 24 mmol/L (22-29); Chloride 105 mmol/L (96-108); Creatinine Clr Calc Pharmacy 122.2; Estimated Glomerular Filt Rate > 60; Glucose Random 136 mg/dL (60-115); Potassium 3.5 mmol/L (3.3-5.1); Sodium 139 mmol/L (135-145); Total Protein 7.3 g/dL (6.5-8.0)
[2024-11-09 12:46] LABS: Appearance Urine Cloudy; Color Urine Yellow; Glucose Urine UA Negative (Negative); Leukocyte Esterase Urine Trace (Negative); Nitrite Urine Negative (Negative); PH 7.5 (5.0-9.0); Specific Gravity - Urine 1.015 (1.005-1.025); UMIC TRIGGER UACC YES; Urine Blood Negative (Negative); Urine Ketones Negative (Negative); Urine Protein Negative (Neg-Trace)
[2024-11-09 12:48] LABS: Bacteria Urine None Seen (None Seen); Hyaline Casts Urine 0-2 /LPF (0-2); RBC Urine 0-2 /HPF (0-2); WBC Urine 0-5 /HPF (0-5)
[2024-11-09 13:06] LABS: Influenza A PCR NEGATIVE (Negative); Influenza B PCR NEGATIVE (Negative); Resp Syncy Virus RNA Qual PCR NEGATIVE (Negative); SARS COV2 PCR INHOUSE NEGATIVE (Negative)
[2024-11-09 13:09] LABS: HCG Quantitative 54291 mIU/mL
--- NOTE | 2024-11-09 13:18 | PC.NURSE ---
provider made aware of absent heart tones, verified and assessed by second RN Noris
--- NOTE | 2024-11-09 16:04 | MHC.CM.PN ---
CM RECEIVED A CONSULT DUE TO PT STATING SHE AND HER FAMILY HAD TO LEAVE THE NURSING HOME THEY WERE IN AND NOW HAVE RUN OUT OF TIME AT THE SHORT TERM HOTEL THAT WAS COVERED BY [facility] CM MET WITH THE PT TWICE WITH THE [employer] HOUSE SUPERVISOR PT INITIALLY REPORTED [place] RAN OUT OF TIME AT THE FAMILY NURSING HOME, HOWEVER LATER STATED THEY ARE NOT ALLOWED BACK AND THE POLICE WILL BE CONTACTED IF THEY RETURN SHE SAYS SHE GOT A HOTEL ROOM ON [facility] ONCE THEY HAD TO LEAVE THE NURSING HOME, SHE SAYS SHE HAS RUN OUT OF MONEY THOUGH. CM LATER LEARNED [facility] HAD COVERED THE HOTEL ROOM BUT ONLY FOR 4 DAYS. PT SAYS HER AND 4 CHILDREN ARE OUTSIDE THE FAMILY NURSING HOME WHERE THEY USED TO STAY, HOWEVER DECLINES SUGGESTIONS FOR THEM TO COME TO THE LOBBY AND WAIT FOR HER, OR FOR CM TO SEND A LYFT FOR THEM. PT IS AWARE OF THE FAMILY HOUSING SERVICES VIA THE [facility] AND [facility], CM REVIEWED THE RESOURCES IN THE BOOKLET WITH HER WITH THE HOUSE SUPERVISOR WELL. PT ALSO UNDERSTANDS, NONE OF THE FAMILY SHELTERS OR AGENCIES THAT WORK WITH THEM ARE OPEN TODAY AND SHE WILL NEED TO CALL THEM TOMORROW MORNING SHE SAYS AT THIS TIME SHE WOULD JUST LIKE TO GET TO THE HOTEL ON [address] TO GET HER THINGS SHE LEFT THERE AND WILL THEN GO TO [facility] ON [facility] SHE UNDERSTANDS THAT THIS IS AN INDIVIDUAL, NOT FAMILY NURSING HOME CONTACT NUMBERS FOR LOCAL AGENCIES ADDED TO HER DC
[2024-11-09 16:12] VITALS: BP 106/64; PULSE 81; RESP 14; TEMP 36.9; O2SAT 99
[2024-11-09 16:38] VITALS: BP 106/64; PULSE 81; RESP 14; TEMP 36.9; O2SAT 99
== END 2024-11-09 17:58 | disposition home or self-care (01) ==
PROVIDERS: Registered Nurse Emergency; Emergency Provider Emergency Medicine
DX: O26.891 Other specified pregnancy related conditions, first trimester (principal); R53.1 Weakness; Z59.00 Homelessness unspecified
CPT/HCPCS: 0241U; 76801; 80053; 81001; 84702; 85025; 99284

== ENCOUNTER → 2024-11-09 12:38 | Outpatient (BNV) | payer OTHER, SELFPAY | PROVIDERS: Emergency Provider Emergency Medicine; Visit Provider Radiology Diagnostic Radiology | DX: O26.812 Pregnancy related exhaustion and fatigue, second trimester (principal); Z3A.13 13 weeks gestation of pregnancy | CPT/HCPCS: 76801 ==

== ENCOUNTER 2024-11-27 13:36 | Emergency (ER) | payer OTHER, SELFPAY ==
--- NOTE | ~2024-11-27 | US_ITS ---
EXAMINATION: US , LIMITED CLINICAL INFORMATION: 3 months , lower abdominal pain. COMPARISON: None available. TECHNIQUE: Grayscale ultrasound imaging of the uterus and adnexa, with M-mode imaging for cardiac activity. FINDINGS: There is a brown present within the uterus, with normal appearing gestational sac, and posteriorly positioned placenta. There is breech position. Positive motion. heart rate estimated at 167 bpm. Femoral length = 1 a 4 cm, corresponding with estimated gestational age of 15 weeks and 4 days. Estimated date of delivery is 05/17/2025,+/- 4 days. No complication evident. Right ovary could not be definitively identified. The left ovary is normal measuring 3.0 x 1.5 x 2.0 cm. US/US OB limited IMPRESSION: 1. Viable intrauterine , breech position. Placenta is posterior position. Placenta normal appearance sonographically. 2. heart rate estimated at 167 bpm. 3. Estimated gestational age based on femur length is 15 weeks, 4 days. Estimated date of delivery is 05/17/2025. 4. The left ovary is normal. The right ovary could not be visualized. 4. There is no free pelvic fluid or adnexal mass. Electronically signed by: Eloy Edmond MD 11/27/2024 04:46 PM EDT
[2024-11-27 13:49] VITALS: BP 106/58; PULSE 79; RESP 18; TEMP 36; O2SAT 100; BMI 27.6
--- NOTE | 2024-11-27 13:55 | ED.GENADULT ---
HPI - General Adult General Chief complaint: General Medical Stated complaint: weakness Time Seen by Provider: 11/27/24 18:16 History of Present Illness ED Provider: Nuzhat GUTIERREZ narrative: The patient is a 34-year-old female who is known to be . She has 4 children. She is from [facility] and speaks primarily [place] Island[place] Creole. She has a history of type 2 diabetes that was diagnosed 1 year ago. She has come to the emergency room several times since this started this . She was prescribed insulin to replace her metformin. She presents today complaining of lower abdominal pain, headache and weakness. She is having a lot of social issues. She lives with her 4 children and the father of her children. She is currently staying at a motel. She says that she will have to leave the motel in 4 days because they will not have any more money. Apparently they has been living in a variety of places including shelters recently. The patient has been encouraged to follow up with [facility] because of her diabetes and its affect on this . She has not yet been seen at that clinic. No fever, sweats, chills. No nausea or vomiting. No chest pain or shortness of breath. The patient says that she has not been taking insulin because she has not been eating that much. Related Data Previous Rx's ?Medication ?Instructions ?Recorded naproxen 500 mg tablet 500 mg PO BID PRN pain 7 days #14 10/28/23 tabs acetaminophen 500 mg tablet 500 mg PO Q6H PRN pain #30 tabs 11/04/23 (Tylenol Extra Strength) cephalexin 250 mg capsule 250 mg PO QID 7 days #28 caps 11/04/23 metformin 500 mg tablet 500 mg PO BID #60 tabs 03/09/24 cephalexin 500 mg capsule 500 mg PO QID #27 caps 04/16/24 doxycycline hyclate 100 mg capsule 100 mg PO BID #13 caps 04/16/24 metformin 500 mg tablet 500 mg PO BID 30 days #60 tabs 06/11/24 ibuprofen 600 mg tablet 600 mg PO Q6-8H PRN pain (scale 07/29/24 score 4-6) #30 tabs metformin 500 mg tablet 500 mg PO BID #60 tabs 09/21/24 vit no.95-ferrous 1 tab PO DAILY #60 tabs 09/21/24 fumarate 28 mg-folic acid 800 mcg tablet ( Multivitamins) amoxicillin 875 mg tablet 875 mg PO Q12H 5 days #10 tabs 09/26/24 cefuroxime axetil 250 mg tablet 250 mg PO BID 7 days #14 tabs 10/07/24 doxylamine succinate 25 mg tablet 25 mg PO . b.i.d. PRN nausea #30 10/09/24 tabs nitrofurantoin 100 mg PO Q12H 7 days #14 caps 10/09/24 monohydrate/macrocrystals 100 mg capsule (Macrobid) pyridoxine (vitamin B6) 25 mg 25 mg PO BID PRN nausea and 10/09/24 tablet vomiting #30 tabs Allergies Allergy/AdvReac Type Severity Reaction Status Date / Time No Known Allergies Allergy Verified 11/27/24 13:52 Review of Systems Review of Systems: Yes all other systems are reviewed and are negative [facility] Past Medical History Medical History Abscess of shoulder Social History Social History Alcohol intake: never Patient Tobacco Use Status: Never used Tobacco Advance Directives: No Advance Directives Information Provided: No Advance Directives on File: No Physical Exam ED Vital Signs: Vital Signs - 24 hr 11/27/24 13:49 11/27/24 18:03 11/27/24 21:03 Temperature 96.8 F 97.9 F 97.7 F Pulse Rate 79 60 62 Respiratory Rate 18 20 12 Blood Pressure 106/58 L 112/65 112/66 Pulse Oximetry 100 100 100 Oxygen Delivery Method Room Air Room Air Room Air 11/27/24 22:33 Temperature 97.7 F Pulse Rate 62 Respiratory Rate 12 Blood Pressure 112/66 Pulse Oximetry 100 Oxygen Delivery Method Room Air BMI result Body Mass Index 27.6 Const Other: The patient is awake, alert, pleasant, cooperative. She does not appear acutely ill. HENMT Other: Face is symmetrical, mucous membranes moist Eyes General: appearance normal, both eyes and all related structures Resp Effort & Inspection: normal respiratory effort Auscultation: clear to auscultation bilaterally Cardio Rate: regular rate Rhythm: regular rhythm Heart sounds: S1 normal heart sound present and S2 normal heart sound present GI Other: The abdomen is soft and nontender. I believe I feel the uterine fundus below the umbilicus. Skin Other: Skin is dry and unremarkable Neuro Other: The patient is awake and alert with a normal mental status. Cranial nerves 2-12 are intact. She moves her extremities symmetrically and appropriately. Extrem Other: No peripheral edema Course Course Course Narrative: RME: 31 old female 3 months presents to ED for lower abdominal pain, feeling weak, headache, has not been able to check her glucose due to lack of glucometer. Patient's other complaint is requesting help with halfway. Patient states hotel she is presently staying at head states they would no longer pay for her and she needs help for someone to help her pain so she will not be homeless. Labs ultrasound ordered. Medical Decision Making Medical Decision Making MDM Narrative: The patient is a 34-year-old female who was with what I believe is her 5th . She is [place]. 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 She seems to have a lot of social constraints. Housing seems complicated for her. Additionally she has type 2 diabetes and she does not seem to have any regular medical providers, specifically she does not seem to has been established with any regular obstetrical office. On an ER visit several weeks ago Dr. Roblero was consulted. He felt that given her diabetes she would need to follow up with the [facility]- Medicine office for care. As far as I can tell the patient has not had any success in establishing herself with that office or any other obstetrical office. Today the patient clinically seems well. An ultrasound was done that shows a age of about 15-,1/2 weeks. This seems to be consistent with her previous 3 ultrasounds at this emergency room during this . The patient is not currently taking any medication for her diabetes. Her blood sugar is not terribly high today. I suspect that is because of her . She is also complaining of housing difficulty and may be homeless in 4 days. Clinically I do not feel there is any acute medical emergency at work. The difficulty in his case will be getting the patient connected with the Maternal- Medicine office at [facility] for ongoing care and management of her diabetes. Additionally there is her housing difficulty. She says that her 4 children are being looked after by the father. Since there was no acute medical process at work I think she may be discharged. I have consulted case management. The wrapper caser spoke to the patient at some length and was able to get contact information for someone who might be helping her access services. The wrapper caser will try to reach this person tomorrow for additional efforts at trying to help the patient. Lab Data 11/27/24 14:21 11/27/24 14:21 Labs: Lab Results 11/27/24 11/27/24 11/27/24 Range/Units 13:57 14:20 14:21 WBC 6.9 (4.8-10.8) X10*3/uL RBC 4.17 L (4.20-5.50) X10*6/uL Hgb 12.4 (12.0-16.0) g/dl Hct 35.6 L (37.0-47.0) % MCV 85.4 (80.0-98.0) fL MCH 29.7 (27.0-33.0) pg MCHC 34.8 (31.0-35.0) g/dl RDW 12.2 (11.0-16.0) % Plt Count 270 (160-400) X10*3/uL MPV 8.5 L (9.4-12.3) fL Immature Gran % (Auto) 0.3 (0.0-0.4) % Neut % (Auto) 63.2 (45-73) % Lymph % (Auto) 29.8 (20-40) % Saline % (Auto) 6.3 (2-11) % Eos % (Auto) 0.3 (0-4) % Baso % (Auto) 0.1 (0-2) % Lymph # (Auto) 2.1 (1.2-4.9) X10*3/uL Saline # (Auto) 0.4 (0.1-1.2) X10*3/uL Eos # (Auto) 0.0 (0.0-0.4) X10*3/uL Baso # (Auto) 0.0 (0.0-0.2) X10*3/uL Abs Immat Gran (auto) 0.02 (0.00-0.03) X10*3/uL Absolute Neuts (auto) 4.4 (2.0-8.3) x10*3/uL Absolute Nucleated RBC 0.000 (0.0-0.012) X10*3/uL Nucleated RBC % (auto) 0.0 (0.0-0.2) /100WBC PT 11.7 (10.9-12.4) SEC INR 1.0 (0.9-1.1) APTT 24.8 L (26.0-36.8) SEC Sodium 134 L (135-145) mmol/L Potassium 3.4 (3.3-5.1) mmol/L Chloride 105 (96-108) mmol/L Carbon Dioxide 23 (22-29) mmol/L Anion Gap 9 L (12-20) BUN 5 L (9-16) mg/dL Creatinine 0.65 (0.5-1.4) mg/dL Estim Creat Clear Calc 120.4 Estimated GFR > 60 POC Glucose 135 H (60-115) mg/dL Random Glucose 157 H (60-115) mg/dL Calcium 9.0 (8.4-10.2) mg/dL Total Bilirubin 0.4 (0.0-1.0) mg/dL AST 20 (5-31) U/L ALT 20 (0-31) U/L Alkaline Phosphatase 54 (39-117) U/L Total Protein 7.1 (6.5-8.0) g/dL Albumin 3.5 (3.5-5.0) g/dL Beta HCG, Quant 15707 mIU/mL Urine Color Urine Appearance Urine pH (5.0-9.0) Ur Specific [place] (1.005-1.025) Urine Protein (Neg-Trace) mg/dL Urine Glucose (UA) (Negative) mg/dL Urine Ketones (Negative) mg/dL Urine Blood (Negative) Urine Nitrite (Negative) Ur Leukocyte Esterase (Negative) Urine RBC (0-2) /HPF Urine WBC (0-5) /HPF Ur Squamous Epith Cells (0-2) /HPF Urine Bacteria (None Seen) Hyaline Casts (0-2) /LPF Urine Test (NEGATIVE) Influenza Type A (PCR) NEGATIVE (Negative) Influenza Type B (PCR) NEGATIVE (Negative) RSV RNA Qual (PCR) NEGATIVE (Negative) SARS-CoV-2 RNA (RT-PCR) NEGATIVE (Negative) Blood Type B Positive 11/27/24 Range/Units 14:22 WBC (4.8-10.8) X10*3/uL RBC (4.20-5.50) X10*6/uL Hgb (12.0-16.0) g/dl Hct (37.0-47.0) % MCV (80.0-98.0) fL MCH (27.0-33.0) pg MCHC (31.0-35.0) g/dl RDW (11.0-16.0) % Plt Count (160-400) X10*3/uL MPV (9.4-12.3) fL Immature Gran % (Auto) (0.0-0.4) % Neut % (Auto) (45-73) % Lymph % (Auto) (20-40) % Saline % (Auto) (2-11) % Eos % (Auto) (0-4) % Baso % (Auto) (0-2) % Lymph # (Auto) (1.2-4.9) X10*3/uL Saline # (Auto) (0.1-1.2) X10*3/uL Eos # (Auto) (0.0-0.4) X10*3/uL Baso # (Auto) (0.0-0.2) X10*3/uL Abs Immat Gran (auto) (0.00-0.03) X10*3/uL Absolute Neuts (auto) (2.0-8.3) x10*3/uL Absolute Nucleated RBC (0.0-0.012) X10*3/uL Nucleated RBC % (auto) (0.0-0.2) /100WBC PT (10.9-12.4) SEC INR (0.9-1.1) APTT (26.0-36.8) SEC Sodium (135-145) mmol/L Potassium (3.3-5.1) mmol/L Chloride (96-108) mmol/L Carbon Dioxide (22-29) mmol/L Anion Gap (12-20) BUN (9-16) mg/dL Creatinine (0.5-1.4) mg/dL Estim Creat Clear Calc Estimated GFR POC Glucose (60-115) mg/dL Random Glucose (60-115) mg/dL Calcium (8.4-10.2) mg/dL Total Bilirubin (0.0-1.0) mg/dL AST (5-31) U/L ALT (0-31) U/L Alkaline Phosphatase (39-117) U/L Total Protein (6.5-8.0) g/dL Albumin (3.5-5.0) g/dL Beta HCG, Quant mIU/mL Urine Color Yellow Urine Appearance Clear Urine pH 7.5 (5.0-9.0) Ur Specific [place] 1.025 (1.005-1.025) Urine Protein Trace (Neg-Trace) mg/dL Urine Glucose (UA) 100 H (Negative) mg/dL Urine Ketones Trace (Negative) mg/dL Urine Blood Negative (Negative) Urine Nitrite Negative (Negative) Ur Leukocyte Esterase Trace H (Negative) Urine RBC 0-2 (0-2) /HPF Urine WBC 0-5 (0-5) /HPF Ur Squamous Epith Cells 3-5 (0-2) /HPF Urine Bacteria None Seen (None Seen) Hyaline Casts 0-2 (0-2) /LPF Urine Test POSITIVE H (NEGATIVE) Influenza Type A (PCR) (Negative) Influenza Type B (PCR) (Negative) RSV RNA Qual (PCR) (Negative) SARS-CoV-2 RNA (RT-PCR) (Negative) Blood Type Discharge Plan Discharge Clinical Impression: with 15 completed weeks gestation, Type 2 diabetes mellitus Patient Disposition: Home, Self-Care Additional Instructions: Your testing in the emergency room today is reassuring. However it is very important that you get connected with an obstetrical office for ongoing management of your health while you are , particularly for management of your diabetes while you are . It is very important you contact the [facility] and get seen soon for ongoing management of your diabetes while you are . Please try to contact the office in the morning for an appointment soon. Return to the emergency room if worse. Prescriptions: No Action cephalexin 250 mg capsule 250 mg PO QID 7 Days Qty: 28 0RF acetaminophen [Tylenol Extra Strength] 500 mg tablet 500 mg PO Q6H PRN (Reason: pain) Qty: 30 0RF metformin 500 mg tablet 500 mg PO BID Qty: 60 0RF naproxen 500 mg tablet 500 mg PO BID PRN (Reason: pain) 7 Days Qty: 14 0RF cephalexin 500 mg capsule 500 mg PO QID Qty: 27 0RF doxycycline hyclate 100 mg capsule 100 mg PO BID Qty: 13 0RF metformin 500 mg tablet 500 mg PO BID 30 Days Qty: 60 0RF ibuprofen 600 mg tablet 600 mg PO Q6-8H PRN (Reason: pain (scale score 4-6)) Qty: 30 0RF PNV cmb#95-ferrous fumarate-FA [ Multivitamins] 28 mg iron- 800 mcg tablet 1 tab PO DAILY Qty: 60 0RF metformin 500 mg tablet 500 mg PO BID Qty: 60 0RF amoxicillin 875 mg tablet 875 mg PO Q12H 5 Days Qty: 10 0RF cefuroxime axetil 250 mg tablet 250 mg PO BID 7 Days Qty: 14 0RF nitrofurantoin monohyd/m-cryst [Macrobid] 100 mg capsule 100 mg PO Q12H 7 Days Qty: 14 0RF Rx Instructions: must administer with a meal/food doxylamine succinate 25 mg tablet 25 mg PO . b.i.d. PRN (Reason: nausea) Qty: 30 0RF pyridoxine (vitamin B6) 25 mg tablet 25 mg PO BID PRN (Reason: nausea and vomiting) Qty: 30 0RF Rx Instructions: take together with doxylamine p.r.n. nausea/vomiting Referrals: [facility] [Provider Group] (Fifteen weeks , type 2 diabetes, poor diabetic management) Interventions: ED Discharge Assessment Last Done: 11/27/24 22:33 Discharge Date/Time: 11/27/24 22:34 Print Language: Juan Parnell
[2024-11-27 14:01] LABS: Glucose, Whole Blood 135 mg/dL (60-115)
[2024-11-27 14:33] LABS: MANUAL DIFF FLAG NO
[2024-11-27 14:34] LABS: Basophils Percent Auto 0.1 % (0-2); Eosinophils Percent Auto 0.3 % (0-4); Hematocrit 35.6 % (37.0-47.0); Hemoglobin 12.4 g/dl (12.0-16.0); Imm Gran Abs Auto 0.02 X10*3/uL (0.00-0.03); Imm Gran Pct Auto 0.3 % (0.0-0.4); Lymphocytes Absolute Auto 2.1 X10*3/uL (1.2-4.9); Lymphocytes Percent Auto 29.8 % (20-40); Mean Corpuscular HGB Conc 34.8 g/dl (31.0-35.0); Mean Corpuscular Hemoglobin 29.7 pg (27.0-33.0); Mean Corpuscular Volume 85.4 fL (80.0-98.0); Mean Platelet Volume 8.5 fL (9.4-12.3); Monocytes Absolute Auto 0.4 X10*3/uL (0.1-1.2); Monocytes Percent Auto 6.3 % (2-11); Neutrophils Absolute Auto 4.4 x10*3/uL (2.0-8.3); Neutrophils Percent Auto 63.2 % (45-73); Platelet Count 270 X10*3/uL (160-400); Red Blood Count 4.17 X10*6/uL (4.20-5.50); Red Cell Distribution Width 12.2 % (11.0-16.0); White Blood Count 6.9 X10*3/uL (4.8-10.8)
[2024-11-27 14:36] LABS: UPreg QC Valid YES; Urine Pregnancy POSITIVE (NEGATIVE)
[2024-11-27 14:37] LABS: Appearance Urine Clear; Color Urine Yellow; Glucose Urine UA 100 mg/dL (Negative); Leukocyte Esterase Urine Trace (Negative); Nitrite Urine Negative (Negative); PH 7.5 (5.0-9.0); Specific Gravity - Urine 1.025 (1.005-1.025); UMIC TRIGGER UACC YES; Urine Blood Negative (Negative); Urine Ketones Trace mg/dL (Negative); Urine Protein Trace mg/dL (Neg-Trace)
[2024-11-27 14:40] LABS: Bacteria Urine None Seen (None Seen); Hyaline Casts Urine 0-2 /LPF (0-2); RBC Urine 0-2 /HPF (0-2); WBC Urine 0-5 /HPF (0-5)
[2024-11-27 14:43] LABS: Prothrombin Time 11.7 SEC (10.9-12.4)
[2024-11-27 14:45] LABS: Partial Thromboplastin Time 24.8 SEC (26.0-36.8)
[2024-11-27 14:56] LABS: Alanine Aminotransferase 20 U/L (0-31); Albumin Level 3.5 g/dL (3.5-5.0); Alkaline Phosphatase 54 U/L (39-117); Anion Gap 9 (12-20); Aspartate Amino Transferase 20 U/L (5-31); Bilirubin Total 0.4 mg/dL (0.0-1.0); Blood Urea Nitrogen 5 mg/dL (9-16); Carbon Dioxide 23 mmol/L (22-29); Chloride 105 mmol/L (96-108); Creatinine Clr Calc Pharmacy 120.4; Estimated Glomerular Filt Rate > 60; Glucose Random 157 mg/dL (60-115); Potassium 3.4 mmol/L (3.3-5.1); Sodium 134 mmol/L (135-145); Total Protein 7.1 g/dL (6.5-8.0)
[2024-11-27 15:14] LABS: HCG Quantitative 29999 mIU/mL
[2024-11-27 15:22] LABS: Influenza A PCR NEGATIVE (Negative); Influenza B PCR NEGATIVE (Negative); Resp Syncy Virus RNA Qual PCR NEGATIVE (Negative); SARS COV2 PCR INHOUSE NEGATIVE (Negative)
[2024-11-27 18:03] VITALS: BP 112/65; PULSE 60; RESP 20; TEMP 36.6; O2SAT 100
[2024-11-27 21:03] VITALS: BP 112/66; PULSE 62; RESP 12; TEMP 36.5; O2SAT 100
[2024-11-27 22:33] VITALS: BP 112/66; PULSE 62; RESP 12; TEMP 36.5; O2SAT 100
--- NOTE | 2024-11-28 16:51 | MHC.CM.ED ---
CM met with patient on 11/27 at the request of Dr. Quispe regarding housing concerns. Pt is [place]oc[place]. She speaks Moroccan-Creole. She is [employer]. [employer] records tech used. Pt lives with her and 2 children, aged 5 and 1. Pt uses no DME and has No services. Pt has been living in a hotel care home on [address] in [facility]. She received notice that she must leave on Sunday. Her belongings are in storage.She states her food stamps and money was stopped 22 days ago. She tells CM she feeds her children. She is not forthcoming as to how she feeds them. She tells CM she has been in several shelters. She has been in for 2 years. She is not forthcoming on where she has been living prior to recent care home. CM has printed information on [employer] services and [employer] services, however they are in Gu[place]ian. Pt gave CM the telephone number of a case operator that has been helping her-Jenna [phone].. She has given CM permission to speak with Jenna about her housing concerns and her concerns. Pt is 15 weeks with DM. She has been referred previously to [facility] maternal/ clinic. CM is unsure if patient has followed up with this referral. CM called on spoke with Jenna, previous CM working with this patient on 11/28 at 1500. Jenna tells CM that she has been working with this patient and her family for at least 2 years. Typically, [place] refugees have about 6 months of care home housing, are given work permits and job assistance. Jenna tells CM that this patient had some difficulties with obtaining her work permit. She now has one. Her has not worked, despite having a work permit, and has recently secured a job 3 weeks ago. Jenna tells CM they can not longer pay for their care home housing, as they have overstayed. Jenna helped patient complete a RAFT application for housing yesterday. Jenna has suggested that the patient start paying for the care home since her is working. CM suggested that Jenna consider WIC and [employer], as this patient and her children should qualify for services since she is . Jenna will call the patient to discuss WIC and the importance of her obtaining care. Pt was discharged 11/27.
== END 2024-11-27 22:34 | disposition home or self-care (01) ==
PROVIDERS: Physician Assistant; Emergency Provider Emergency Medicine
DX: O24.112 Pre-existing type 2 diabetes mellitus, in pregnancy, second trimester (principal); R53.1 Weakness; R10.2 Pelvic and perineal pain; Z3A.15 15 weeks gestation of pregnancy; Z03.818 Encounter for observation for suspected exposure to other biological agents ruled out; Z79.84 Long term (current) use of oral hypoglycemic drugs; Z79.899 Other long term (current) drug therapy
CPT/HCPCS: 0241U; 36415; 76815; 80053; 81001; 81025; 82947; 84702; 85025; 85610; 85730; 86900; 86901; 99283; 99284

== ENCOUNTER → 2024-11-27 14:43 | Outpatient (BNV) | payer OTHER, SELFPAY | PROVIDERS: Visit Provider Radiology Diagnostic Radiology | DX: O26.892 Other specified pregnancy related conditions, second trimester (principal); Z3A.15 15 weeks gestation of pregnancy | CPT/HCPCS: 76815 ==